=== PATIENT | female | born 1965 | race Caucasian/White ===

== ENCOUNTER → 2017-04-30 | Outpatient (CLI) | payer OTHER ==
[~2017-04-30] MED LIST: DICL75TA2 PO; EPP3/2 IM; IBUP-1050 PO
--- NOTE | 2017-04-30 11:18 | DIAGNOSTIC IMAGING REPORT ---
LEFT HAND MIN 3 VIEWS ROUTINE CLINICAL HISTORY: LEFT HAND PAIN COMPARISON: None. DISCUSSION: Minimal subchondral degenerative cystic change of the carpal bones. All remaining osseous structures are unremarkable. No abnormal periosteal reaction. IMPRESSION: Minimal degenerative cystic change of the carpal bones. Otherwise negative study. Electronically signed by: Gen Redmond M.D. 04/30/2017 11:17 AM Dictated Date/Time: 04/30/2017 11:16 AM
== END | disposition home or self-care (01) ==
LOC: C.RAD1850 11:00
PROVIDERS: ATTEND Emergency Medicine
DX: S60.222A Contusion of left hand, initial encounter (principal); X58.XXXA Exposure to other specified factors, initial encounter

== ENCOUNTER 2017-06-16 11:06 | Emergency (ER) | payer OTHER ==
[~2017-06-16] VITALS: Ht 154.9 cm; Wt 64.6 kg
[~2017-06-16 11:06] MED LIST changes: -DICL75TA2 PO
[2017-06-16 11:09] VITALS: TEMP 36.8; Ht 154.9 cm; Wt 64.6 kg
--- NOTE | 2017-06-16 11:46 | DIAGNOSTIC IMAGING REPORT ---
RIGHT HAND 3 VIEWS HISTORY: right hand pain Right COMPARISON: None. FINDINGS: There is no fracture or dislocation. Soft tissues are unremarkable. No radiopaque foreign bodies. Mild to moderate cartilage space narrowing and marginal osteophytes throughout the majority of the DIP and PIP joints of the hand. There is also mild cartilage space narrowing at the third MCP joint. This is consistent with degenerative change. IMPRESSION: No fractures within the right hand. Mild to moderate osteoarthritis. Electronically signed by: Clinton Arredondo M.D. 06/16/2017 11:45 AM Dictated Date/Time: 06/16/2017 11:43 AM
--- NOTE | 2017-06-16 11:57 | EMERGENCY ROOM VISIT NOTE ---
ED Visit Note First contact with patient: 11:21 CHIEF COMPLAINT: Right wrist and hand pain. HISTORY OF PRESENT ILLNESS: This 51-year-old female presents to the ER with chief complaint of right hand and wrist pain. 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 She states normally they just have to lift the dishes onto a belt and then they will go through but she now has to push them into the washer and she uses her right hand. The patient admits to some intermittent numbness and tingling in her hand. She also admits to some increased pain in her right fourth digit. The patient does admit to having carpal tunnel surgery on that hand in the past. REVIEW OF SYSTEMS: 6 system review was performed and was negative unless stated otherwise in history of present illness. PMH: The patient is healthy; carpal tunnel surgery, 2 C-sections SOCIAL HISTORY: Patient lives with her son. The patient admits to tobacco use and occasional alcohol use. PHYSICAL EXAM: Vital Signs: Were reviewed Reviewed Nurse's notes. GENERAL: 51- year-old white female appears in no acute distress. MENTAL Status: Alert and oriented 3. RIGHT HAND/WRIST: No gross bony deformity noted. There is some swelling noted over the dorsal aspect of the hand and wrist. Positive Phalen's , positive Tinel's. The patient also has point tenderness over the proximal phalanx of the fourth digit. EMERGENCY DEPARTMENT COURSE: The patient was evaluated. X-ray of the right hand was ordered and interpreted by the radiologist and myself. DIAGNOSTICS:RIGHT HAND 3 VIEWS HISTORY: right hand pain Right COMPARISON: None. FINDINGS: There is no fracture or dislocation. Soft tissues are unremarkable. No radiopaque foreign bodies. Mild to moderate cartilage space narrowing and marginal osteophytes throughout the majority of the DIP and PIP joints of the hand. There is also mild cartilage space narrowing at the third MCP joint. This is consistent with degenerative change. IMPRESSION: No fractures within the right hand. Mild to moderate osteoarthritis. Electronically signed by: Clinton Arredondo M.D. 06/16/2017 11:45 AM The patient was informed of the findings. The patient is placed in a wrist splint. The patient was discharged home in stable condition. DIAGNOSIS: Osteoarthritis of the right hand Carpal tunnel syndrome right wrist DISCHARGE INSTRUCTIONS AND TREATMENT: Wrist splint for 4 - 5 days. Ice to the swollen area frequently over the next 2 days. Take Voltaren as prescribed. Do not take any additional ibuprofen. If symptoms are not improving, recommend follow-up with orthopedics. Current/Historical Medications Scheduled Epinephrine (Epipen), 0.3 MG IM UD Allergies Coded Allergies: BEE STING (Unverified Allergy, Mild, 06/16/17) Acetaminophen (Verified Allergy, Unknown, vomiting, 06/16/17) Vital Signs Date Time Temp Pulse Resp B/P (MAP) Pulse Ox O2 Delivery O2 Flow Rate FiO2 06/16/17 11:09 36.8 87 20 145/85 97 Room Air Departure Information Referrals Eliane Bryant M.D. (MEDICAL) (PCP) Patient Instructions My [facility]
[2017-06-16] MEDS ORDERED: DICL75TA2 PO (11:59)
[2017-06-16 12:14] VITALS: BP 145/85; PULSE 85; O2SAT 100
== END 2017-06-16 12:15 | disposition home or self-care (01) ==
LOC: C.EDB 11:07 → C.EDD 12:15
DX: M79.641 Pain in right hand (principal); M25.531 Pain in right wrist; M79.89 Other specified soft tissue disorders; M19.041 Primary osteoarthritis, right hand; F17.210 Nicotine dependence, cigarettes, uncomplicated

== ENCOUNTER 2021-07-03 11:42 | Inpatient (IN) ==
[2021-07-03] MEDS ORDERED: oxyCODONE HCL IR 5 MG TAB (IMMEDIATE RELEASE) PO STA (13:03)
--- NOTE | 2021-07-03 13:31 | XRay Report ---
XR shoulder RT min 2V routine CLINICAL HISTORY: Right shoulder pain. COMPARISON: Right shoulder radiograph February 28, 2019. FINDINGS: Alignment of the right shoulder is anatomic. No acute fracture is identified. There is mil d joint space narrowing of the right acromioclavicular joint. Note is made of interstitial thickening throughout the right lung with right midlung opacity. There is also right suprahilar opacity, includ ing an irregular 2.1 cm nodular opacity. IMPRESSION: 1. Asymmetric right lung interstitial thickening with right midlung and suprahilar opacity, including an irregular 2.1 cm suprahilar density. These findings may reflect pneumonia however a chest CT with contrast is recommended to exclude the possibility of a neoplastic process. 2. No acute fracture or dislocation within the right shoulder. Mild acromioclavicular joint osteoarth ritis. ACT 112: Positive. There are findings on this exam that require communication between the performing entity and the patient following Patient Test Result Information Act ([place] Act 112) guidelines. Electronically signed by: Kerwin David M.D. 07/03/2021 1:29 PM
[2021-07-03] MEDS ORDERED: ALBUT/IPRATROP 3MG/0.5MG NEB 3 ML VIAL NEB STA (13:55)
[2021-07-03 14:21] LABS: Basophils # (auto) 0.03 K/uL (0-0.2); Basophils % (auto) 0.2 %; Eosinophils # (auto) 0.34 K/uL (0-0.5); Eosinophils % (auto) 2.8 %; Hematocrit (blood only) 42.3 % (37-47); Hemoglobin 13.9 g/dL (12.0-16.0); Immature Granulocytes # (auto) 0.02 K/uL (0.00-0.02); Immature Granulocytes % (auto) 0.2 %; Lymphocytes # (auto) 1.53 K/uL (1.2-3.4); Lymphocytes % (auto) 12.6 %; Mean Corpuscular Hgb Conc 32.9 g/dL (32-36); Mean Corpuscular Volume 97.5 fL (80-100); Mean Platelet Volume 10.6 fL (7.4-10.4); Monocytes # (auto) 0.99 K/uL (0.11-0.59); Monocytes % (auto) 8.2 %; Platelet Count 309 K/uL (130-400); RDW Coefficient of Variation 13.9 % (11.5-14.5); RDW Standard Deviation 50.1 fL (36.4-46.3); Red Blood Count 4.34 M/uL (4.2-5.4); White Blood Count 12.11 K/uL (4.8-10.8)
[2021-07-03 14:31] LABS: Partial Thromboplastin Ratio 0.9; Partial Thromboplastin Time 24.2 Seconds (21.0-31.0); Prothrombin Time 10.2 Seconds (9.0-12.0)
[2021-07-03 14:37] LABS: Alanine Aminotransferase 37 U/L (12-78); Albumin Level 3.9 gm/dl (3.4-5.0); Aspartate Aminotransferase 18 U/L (15-37); BUN Creatinine Ratio 9.3 (10-20); Blood Urea Nitrogen 9 mg/dl (7-18); Calcium 9.3 mg/dl (8.5-10.1); Carbon Dioxide 27 mmol/L (21-32); Chloride 107 mmol/L (98-107); Creatinine Clr Calc Pharmacy 57.8 ml/min; Est GFR (African American) 80.1 ml/min; Est GFR (Non-African American) 69.1 ml/min; Glucose 176 mg/dl (70-99); Magnesium 2.2 mg/dl (1.8-2.4); Potassium 3.8 mmol/L (3.5-5.1); Sodium 142 mmol/L (136-145)
[2021-07-03 14:43] LABS: Albumin Globulin Ratio 1.1 (0.9-2); Alkaline Phosphatase 95 U/L (45-117); Bilirubin,Total 0.5 mg/dl (0.2-1); Globulin 3.7 gm/dl (2.5-4.0); Total Protein 7.6 gm/dl (6.4-8.2); Troponin I < 0.015 ng/ml (0-0.045)
[2021-07-03] MEDS ORDERED: OPTIRAY 320 125ml IV ONE (15:17)
--- NOTE | 2021-07-03 15:39 | CT Scan Report ---
CT shoulder RT wo con HISTORY: 55 years-old Female Pt rt shoulder pain acute right shoulder pain COMPARISON: CTA chest of same day TECHNIQUE: Multiple axial CT images of the right shoulder were obtained without the use of IV contras t A dose lowering technique was used consistent with the principals of LINNETTE. FINDINGS: Right hilar/paramediastinal mass with 3.2 cm right upper lobe cavitary lesion. Groundglass and consol idative opacities of the right upper lung with scattered solid pulmonary nodules. A right apical pulm onary lesion is also present. Emphysema. Pathologic right supraclavicular adenopathy. Mild glenohumeral and AC joint osteoarthritis. No acute fracture, dislocation, intra-articular loose body, osseous erosion or suspicious bone lesion. Tendons and ligaments are not well evaluated by CT t echnique. No appreciable rotator cuff muscular atrophy. IMPRESSION: 1. Mild osteoarthritis of the right shoulder without acute fracture, dislocation or suspicious bone l esion. 2. Right hilar/paramediastinal mass with cavitary right upper lobe lesions are further described on C TA chest of same day. Groundglass and consolidative opacities of the right upper lobe are suggestive of postobstructive pneumonitis. 3. Pulmonary nodules and right supraclavicular adenopathy suggestive of metastatic disease. ACT 112: Negative or not required by law. The above report was generated using voice recognition software. It may contain grammatical, syntax o r spelling errors. Electronically signed by: Fidencio Ross M.D. 07/03/2021 3:37 PM
[2021-07-03] MEDS ORDERED: dexAMETHasone**PF** 10 MG/ML VIAL IV ONE (15:43)
--- NOTE | 2021-07-03 15:44 | CT Scan Report ---
HEAD CT NONCONTRAST CT DOSE: HISTORY: Stroke Like Symptoms TECHNIQUE: Multiaxial CT images of the head were performed without the use of intravenous contrast. A utomated exposure control was utilized for this study. A dose lowering technique was utilized adheri ng to the principles of ALARA. Comparison: None. Findings: The paranasal sinuses and mastoid air cells are clear. The calvarium and skull base are int act. There are 3 focal areas of vasogenic edema seen within the high convexities and left frontal lob e. The dominant focus of mesenteric edema within the left high convexity contains a 1.3 cm lesion. Th erefore, the other areas of the vasogenic edema also likely contains small lesions. These findings ar e highly suspicious for metastatic disease. No significant midline shift or mass effect at this time. No intracranial hemorrhage or acute infarct. Impression: There are 3 separate areas of vasogenic edema within the brain with the largest in the left high conv exity containing a 1.3 cm lesion. Therefore, the other areas of vasogenic edema also likely contain o ccult lesions. These findings are highly suspicious for metastatic disease. ACT 112: Negative or not required by law. Electronically signed by: Clinton Arredondo M.D. 07/03/2021 3:42 PM
--- NOTE | 2021-07-03 15:52 | CT Scan Report ---
CT ANGIOGRAPHY OF THE CHEST, PULMONARY EMBOLUS PROTOCOL CLINICAL HISTORY: Shortness of breath. COMPARISON STUDY: No previous studies for comparison. TECHNIQUE: Following IV administration of 119 mL of Optiray, helical axial images of the chest were o btained utilizing the pulmonary embolus protocol. Maximal intensity projections and sagittal and cor onal reformats were viewed on an independent 3D workstation. IV contrast was administered without co mplication. Automated exposure control was utilized for the study. A dose lowering technique was ut ilized adhering to the principles of ALARA. FINDINGS: No pulmonary emboli are identified. However, the right upper lobe pulmonary artery is occl uded by extensive adenopathy. Adenopathy also results in narrowing of the left brachiocephalic vein a nd superior vena cava. The right brachiocephalic vein is suboptimally assessed on this exam but likel y occluded. Note is made of a necrotic precarinal lymph node that measures 2.7 cm in short axis diame ter. Multiple additional pathologic upper mediastinal, bilateral supraclavicular and lower cervical l ymphadenopathy is present. Index right hilar lymph node measures 3.3 x 2.8 cm. There is occlusion of the right upper lobe bronchus by a 2.8 cm right suprahilar mass or lymph node. Note is also made of a 3 cm irregular thick-walled cavitary right upper lobe mass on image 219. A 2.6 cm irregular right ap ical nodule is present. Moderate right upper lobe airspace opacity reflects post obstructive pneumoni tis. There is mild right middle lobe opacity. Numerous additional smaller pulmonary nodules throughou t the lungs are present. Size of the heart is normal. There is trace pericardial effusion. There is n o pneumothorax. A trace right pleural effusion is noted. No acute fracture or suspicious lesion is id entified within visualized skeletal structures. Numerous hepatic lesions are noted. These measure up to 2.[address] of the right shoulder will be reported separately. IMPRESSION: 1. No pulmonary emboli identified although right upper lobe pulmonary artery occluded by adenopathy. 2. Occlusion of the right upper lobe bronchus by the right upper lobe mass or pathologic lymph node. Extensive right hilar, mediastinal, bilateral supraclavicular and lower cervical lymphadenopathy. Thi s is consistent with a neoplastic process and favors bronchogenic carcinoma. Postobstructive right up per lobe pneumonia. Pulmonary consultation is recommended. 3. Numerous pulmonary and hepatic metastases. 4. Vascular narrowing and occlusion by mediastinal lymphadenopathy, as described above. ACT 112: Negative or not required by law. Electronically signed by: Kerwin David M.D. 07/03/2021 3:51 PM
--- NOTE | 2021-07-03 16:37 | Emergency Department Note ---
Impression & Plan Lung mass, Metastatic disease, Right shoulder pain, Brain metastases, Vasogenic edema, Elevated BP without diagnosis of hypertension ED Provider Note NAME: JOSE PRATT AGE: 55 SEX: F : 1965 ARRIVES VIA: Walk-In INFORMANT: Patient, ED PROVIDER(S): Danish Smyth MD CHIEF COMPLAINT: Shoulder weakness HPI: This 55-year-old female who presents emergency department complaining of shoulder weakness. The patient reports she injured her shoulder approximately 2 years ago. She saw physical therapy for the shoulder. She reports over the weekend using the shoulder more often while lifting and feels she overdid it. She is complaining of pain and numbness and weakness running from the shoulder down to her hand. She reports she cannot hold anything in her hand for longer than a minute. She reports she has not taken anything for the weakness. She reports nothing appears to make the weakness any better or worse. ROS: See above HPI for pertinent positives & negatives. A total of 10 systems reviewed and were otherwise negative. PAST MEDICAL HISTORY: See Below PAST SURGICAL HISTORY: See Below FAMILY HISTORY: See Below SOCIAL HISTORY: See Below HOME MEDICATIONS: See Below ALLERGIES: See Below VITALS: See Below PHYSICAL EXAMINATION: VITAL SIGNS - Vital signs and nursing notes were reviewed. GENERAL - 55-year-old female appearing stated age who is in no acute distress. Communicates well with provider and answers questions appropriately. SKIN - Without rashes. HEAD - NC/AT. EYES - PERRL with EOMI bilaterally. Sclera anicteric. Palpebral conjunctiva pink and moist with no injection noted. EARS - No deformities of external structures noted on gross examination bilaterally. NOSE - Midline and without cyanosis. No epistaxis or purulent drainage noted. Septum midline without deviation or septal hematoma noted. MOUTH/OROPHARYNX - Without perioral cyanosis. Buccal mucosa pink and moist and without leukoplakia. Tongue midline with equal elevation of palate bilaterally. No tonsillar hypertrophy, erythema, or exudates noted. NECK - Neck with FROM. Supple to palpation. LUNGS - Chest wall symmetric without accessory muscle use, intercostals retrac tions, or central cyanosis. Normal vesicular breath sounds CTA B/L. No wheezes, rales, or rhonchi appreciated. CARDIAC - RRR with S1/S2. No murmur, rubs, or gallops appreciated. ABDOMEN - Abdominal contour without pulsations or visible masses. BS normoactive all four quadrants. No tenderness, palpable masses, hepatosplenomegaly, or ascites noted. EXTREMITIES - No clubbing or peripheral cyanosis. No pretibial edema present. +3/5 strength in Rt hand, Rt shoulder NEUROLOGIC - Cranial nerves II through XII grossly intact. Sensory intact to light touch throughout. Patellar reflexes +2/4. PSYCH - A&Ox3 and cooperates fully with examiner. Pt is very pleasant and interacts well with examiner. MEDICAL DECISION MAKING: Patient was seen and evaluated as above in room C8. Review was performed of nursing notes and vital signs. I did review pertinent previous visits and patient history. After obtaining a thorough history and physical examination the above work up was performed. This 55-year-old female who presents emergency department complaining of right arm weakness. Patient's x-rays were interpreted by me and are concerning for a lung mass. Based on this and using shared medical decision making with the patient the decision was made to send the patient for CAT scan of the head and chest. CAT scan of the head was interpreted by me is concerning for what appears to be a metastatic disease. CAT scan of the chest is concerning for a tumor. There also appear to be mets to the liver. Patient is also hypertensive here in the emergency department. She was given Decadron here. I did discuss the case with the hospitalist service here as well as neurology. They would both like the patient transferred to [place] however [place] is on a 24 to 48- hour wait for beds. I did discuss the case with the triage physician in [place] Dr. Harper. He is recommending that we admit the patient here while they work on obtaining a bed for the patient. An order was placed for continuous cardiac monitoring. The monitor shows a rate of 90 with Normal Sinus rhythm. The patient was evaluated during a period of high volume and high acuity during the global COVID-19 pandemic, and that diagnosis was suspected/considered upon their initial presentation. Their evaluation, treatment and testing was consistent with current guidelines for patients who present with complaints or symptoms that may be related to COVID-19. Patient was seen while provider was wearing PPE. Triage Nursing notes reviewed. Prior medical records reviewed Vital Signs: reviewed and remarkable for no significant abnormalities Differential diagnosis: Infection, dehydration, metabolic abnormality, hypo/hyperglycemia, electrolyte disturbance, anemia, hypoxia, cardiac sources, intracerebral event, toxicologic, neurologic, as well as other pathologies. ER treatment provided: See below Laboratory studies: As stated above and show below. Imaging studies: See below Consultation(s): Internal Medicine Neurology [place] Past Med/Surg History Medical History No significant active problems Surgical History History of History of carpal tunnel surgery Family History Father Lung cancer Social History (Updated 07/03/21 @ 18:10 by ALLAN Arango) Smoking Status: Current every day smoker Tobacco Type: Cigarettes Hx Alcohol Use: Yes Alcohol Intake Frequency: 2-4 x/Month Preferred Language: Nauruan Feels Safe at Home: Yes Allergies Allergies Allergy/AdvReac Type Severity Reaction Status Date / Time bee venom protein (honey bee) Allergy Severe Anaphylaxis Unverified 07/03/21 13:29 acetaminophen Allergy Unknown vomiting Verified 07/03/21 13:29 Home Meds Home Medications Medication Instructions Recorded Confirmed epinephrine 0.3 mg/0.3 mL 0.3 mg IM Q4H #0 12/01/15 07/03/21 injection, auto-injector ibuprofen 200 mg tablet 400 mg PO Q6H PRN 07/03/21 07/03/21 Results & Data (ED) Vital Signs Vital Signs - 24 hr 07/03/21 11:44 07/03/21 14:41 07/03/21 16:52 Temperature 36.7 C Temperature Source Temporal Artery Scan Pulse Rate 106 H 90 Pulse Rate [Left Finger] 91 H Respiratory Rate 16 18 15 Respiratory Effort / Characteristics Non-Labored Spontaneous Blood Pressure 183/89 H 165/80 H Blood Pressure Mean 120 108 Pulse Oximetry 97 96 Oxygen Delivery Method Room Air Room Air Sepsis Recent Fever Within 48 Hours No Sepsis New/Unexplained Change in Mental Status N/A Sepsis Action Taken by Nursing No Action Required Home Medications Current Medication List: was personally reviewed by me Laboratory Data Attestation: I reviewed the patient's lab results. Result diagrams: 07/03/21 14:01 07/03/21 14:01 Lab Results 07/03/21 07/03/21 07/03/21 Range/Units 14:01 14:01 14:01 WBC 12.11 H (4.8-10.8) K/uL RBC 4.34 (4.2-5.4) M/uL Hgb 13.9 (12.0-16.0) g/dL Hct 42.3 (37-47) % MCV 97.5 (80-100) fL MCH 32.0 (25-34) pg MCHC 32.9 (32-36) g/dL RDW Std Deviation 50.1 H (36.4-46.3) fL RDW Coeff of Jasson 13.9 (11.5-14.5) % Plt Count 309 (130-400) K/uL MPV 10.6 H (7.4-10.4) fL Immature Gran % (Auto) 0.2 % Neut % (Auto) 76.0 % Lymph % (Auto) 12.6 % [place] % (Auto) 8.2 % Eos % (Auto) 2.8 % Baso % (Auto) 0.2 % Neut # (Auto) 9.20 H (1.4-6.5) K/uL Lymph # (Auto) 1.53 (1.2-3.4) K/uL [place] # (Auto) 0.99 H (0.11-0.59) K/uL Eos # (Auto) 0.34 (0-0.5) K/uL Baso # (Auto) 0.03 (0-0.2) K/uL Immature Gran # (Auto) 0.02 (0.00-0.02) K/uL PT 10.2 (9.0-12.0) Seconds INR 1.0 (0.9-1.1) APTT 24.2 (21.0-31.0) Seconds PTT Ratio 0.9 Sodium 142 (136-145) mmol/L Potassium 3.8 (3.5-5.1) mmol/L Chloride 107 (98-107) mmol/L Carbon Dioxide 27 (21-32) mmol/L Anion Gap 8.0 (3-11) BUN 9 (7-18) mg/dl Creatinine 0.92 (0.6-1.2) mg/dl Est Cr Clr Drug Dosing 57.8 ml/min Est GFR ( Amer) 80.1 ml/min Est GFR (Non-Af Amer) 69.1 ml/min BUN/Creatinine Ratio 9.3 L (10-20) Glucose 176 H (70-99) mg/dl Calcium 9.3 (8.5-10.1) mg/dl Magnesium 2.2 (1.8-2.4) mg/dl Total Bilirubin 0.5 (0.2-1) mg/dl AST 18 (15-37) U/L ALT 37 (12-78) U/L Alkaline Phosphatase 95 (45-117) U/L Troponin I < 0.015 (0-0.045) ng/ml Total Protein 7.6 (6.4-8.2) gm/dl Albumin 3.9 (3.4-5.0) gm/dl Globulin 3.7 (2.5-4.0) gm/dl Albumin/Globulin Ratio 1.1 (0.9-2) Specimen Hemolysis COVID-19 Eval Order SARS-CoV-2 (PCR) (Negative) 07/03/21 07/03/21 Range/Units 16:56 16:56 WBC (4.8-10.8) K/uL RBC (4.2-5.4) M/uL Hgb (12.0-16.0) g/dL Hct (37-47) % MCV (80-100) fL MCH (25-34) pg MCHC (32-36) g/dL RDW Std Deviation (36.4-46.3) fL RDW Coeff of Jasson (11.5-14.5) % Plt Count (130-400) K/uL MPV (7.4-10.4) fL Immature Gran % (Auto) % Neut % (Auto) % Lymph % (Auto) % [place] % (Auto) % Eos % (Auto) % Baso % (Auto) % Neut # (Auto) (1.4-6.5) K/uL Lymph # (Auto) (1.2-3.4) K/uL [place] # (Auto) (0.11-0.59) K/uL Eos # (Auto) (0-0.5) K/uL Baso # (Auto) (0-0.2) K/uL Immature Gran # (Auto) (0.00-0.02) K/uL PT (9.0-12.0) Seconds INR (0.9-1.1) APTT (21.0-31.0) Seconds PTT Ratio Sodium (136-145) mmol/L Potassium (3.5-5.1) mmol/L Chloride (98-107) mmol/L Carbon Dioxide (21-32) mmol/L Anion Gap (3-11) BUN (7-18) mg/dl Creatinine (0.6-1.2) mg/dl Est Cr Clr Drug Dosing ml/min Est GFR ( Amer) ml/min Est GFR (Non-Af Amer) ml/min BUN/Creatinine Ratio (10-20) Glucose (70-99) mg/dl Calcium (8.5-10.1) mg/dl Magnesium (1.8-2.4) mg/dl Total Bilirubin (0.2-1) mg/dl AST (15-37) U/L ALT (12-78) U/L Alkaline Phosphatase (45-117) U/L Troponin I (0-0.045) ng/ml Total Protein (6.4-8.2) gm/dl Albumin (3.4-5.0) gm/dl Globulin (2.5-4.0) gm/dl Albumin/Globulin Ratio (0.9-2) Specimen Hemolysis COVID-19 Eval Order Covid19 at [facility] SARS-CoV-2 (PCR) NEGATIVE (Negative) Administered Medications Discontinued Medications Albuterol (Albut/Ipratrop 3mg/0.5mg Neb 3 Ml Vial) 3 ml NEB NOW STA Stop: 07/03/21 13:56 Last Admin: 07/03/21 14:41 Dose: 3 ml Documented by: [id number] Dexamethasone Sodium Phosphate (DexamethasonePf 10 Mg/Ml Vial) 10 mg IV NOW ONE Stop: 07/03/21 15:44 Last Admin: 07/03/21 16:41 Dose: 10 mg Documented by: [id number] Ioversol (Optiray 320 125ml) 119 ml IV ONCE ONE Stop: 07/03/21 15:18 Last Admin: 07/03/21 15:17 Dose: 1 ml Documented by: [id number] Oxycodone HCl (Oxycodone Hcl Ir 5 Mg Tab (Immediate Release)) 10 mg PO NOW STA Stop: 07/03/21 13:04 Last Admin: 07/03/21 13:41 Dose: 10 mg Documented by: [id number] Imaging Data Radiologist's Impression: Shoulder X-Ray 07/03/21 13:03 XR shoulder RT min 2V routine CLINICAL HISTORY: Right shoulder pain. COMPARISON: Right shoulder radiograph February 28, 2019. FINDINGS: Alignment of the right shoulder is anatomic. No acute fracture is identified. There is mild joint space narrowing of the right acromioclavicular joint. Note is made of interstitial thickening throughout the right lung with right midlung opacity. There is also right suprahilar opacity, including an irregular 2.1 cm nodular opacity. IMPRESSION: 1. Asymmetric right lung interstitial thickening with right midlung and suprahilar opacity, including an irregular 2.1 cm suprahilar density. These findings may reflect pneumonia however a chest CT with contrast is recommended to exclude the possibility of a neoplastic process. 2. No acute fracture or dislocation within the right shoulder. Mild acromioclavicular joint osteoarthritis. ACT 112: Positive. There are findings on this exam that require communication between the performing entity and the patient following Patient Test Result Information Act ([place] Act 112) guidelines. Electronically signed by: Kerwin David M.D. 07/03/2021 1:29 PM Chest CTA 07/03/21 13:55 CT ANGIOGRAPHY OF THE CHEST, PULMONARY EMBOLUS PROTOCOL CLINICAL HISTORY: Shortness of breath. COMPARISON STUDY: No previous studies for comparison. TECHNIQUE: Following IV administration of 119 mL of Optiray, helical axial images of the chest were obtained utilizing the pulmonary embolus protocol. Maximal intensity projections and sagittal and coronal reformats were viewed on an independent 3D workstation. IV contrast was administered without complication. Automated exposure control was utilized for the study. A dose lowering technique was utilized adhering to the principles of ALARA. FINDINGS: No pulmonary emboli are identified. However, the right upper lobe pulmonary artery is occluded by extensive adenopathy. Adenopathy also results in narrowing of the left brachiocephalic vein and superior vena cava. The right brachiocephalic vein is suboptimally assessed on this exam but likely occluded. Note is made of a necrotic precarinal lymph node that measures 2.7 cm in short axis diameter. Multiple additional pathologic upper mediastinal, bilateral supraclavicular and lower cervical lymphadenopathy is present. Index right hilar lymph node measures 3.3 x 2.8 cm. There is occlusion of the right upper lobe bronchus by a 2.8 cm right suprahilar mass or lymph node. Note is also made of a 3 cm irregular thick-walled cavitary right upper lobe mass on image 219. A 2.6 cm irregular right apical nodule is present. Moderate right upper lobe airspace opacity reflects post obstructive pneumonitis. There is mild right middle lobe opacity. Numerous additional smaller pulmonary nodules throughout the lungs are present. Size of the heart is normal. There is trace pericardial effusion. There is no pneumothorax. A trace right pleural effusion is noted. No acute fracture or suspicious lesion is identified within visualized skeletal structures. Numerous hepatic lesions are noted. These measure up to 2.[address] of the right shoulder will be reported separately. IMPRESSION: 1. No pulmonary emboli identified although right upper lobe pulmonary artery occluded by adenopathy. 2. Occlusion of the right upper lobe bronchus by the right upper lobe mass or pathologic lymph node. Extensive right hilar, mediastinal, bilateral supraclavicular and lower cervical lymphadenopathy. This is consistent with a neoplastic process and favors bronchogenic carcinoma. Postobstructive right upp er lobe pneumonia. Pulmonary consultation is recommended. 3. Numerous pulmonary and hepatic metastases. 4. Vascular narrowing and occlusion by mediastinal lymphadenopathy, as described above. ACT 112: Negative or not required by law. Electronically signed by: Kerwin David M.D. 07/03/2021 3:[address] 07/03/21 13:[address] DOSE: HISTORY: Stroke Like Symptoms TECHNIQUE: Multiaxial CT images of the head were performed without the use of intravenous contrast. Automated exposure control was utilized for this study. A dose lowering technique was utilized adhering to the principles of ALARA. Comparison: None. Findings: The paranasal sinuses and mastoid air cells are clear. The calvarium and skull base are intact. There are 3 focal areas of vasogenic edema seen within the high convexities and left frontal lobe. The dominant focus of mesenteric edema within the left high convexity contains a 1.3 cm lesion. Therefore, the other areas of the vasogenic edema also likely contains small lesions. These findings are highly suspicious for metastatic disease. No significant midline shift or mass effect at this time. No intracranial hemorrhage or acute infarct. Impression: There are 3 separate areas of vasogenic edema within the brain with the largest in the left high convexity containing a 1.3 cm lesion. Therefore, the other areas of vasogenic edema also likely contain occult lesions. These findings are highly suspicious for metastatic disease. ACT 112: Negative or not required by law. Electronically signed by: Clinton Arredondo M.D. 07/03/2021 3:[address] 07/03/21 13:55 CT shoulder RT wo con HISTORY: 55 years-old Female Pt rt shoulder pain acute right shoulder pain COMPARISON: CTA chest of same day TECHNIQUE: Multiple axial CT images of the right shoulder were obtained without the use of IV contrast A dose lowering technique was used consistent with the principals of LINNETTE. FINDINGS: Right hilar/paramediastinal mass with 3.2 cm right upper lobe cavitary lesion. Groundglass and consolidative opacities of the right upper lung with scattered solid pulmonary nodules. A right apical pulmonary lesion is also present. Emphysema. Pathologic right supraclavicular adenopathy. Mild glenohumeral and AC joint osteoarthritis. No acute fracture, dislocation, intra-articular loose body, osseous erosion or suspicious bone lesion. Tendons and ligaments are not well evaluated by CT technique. No appreciable rotator cuff muscular atrophy. IMPRESSION: 1. Mild osteoarthritis of the right shoulder without acute fracture, dislocation or suspicious bone lesion. 2. Right hilar/paramediastinal mass with cavitary right upper lobe lesions are further described on CTA chest of same day. Groundglass and consolidative opacities of the right upper lobe are suggestive of postobstructive pneumonitis. 3. Pulmonary nodules and right supraclavicular adenopathy suggestive of metastatic disease. ACT 112: Negative or not required by law. The above report was generated using voice recognition software. It may contain grammatical, syntax or spelling errors. Electronically signed by: Fidencio Ross M.D. 07/03/2021 3:37 PM Discharge Plan Visit Data Chief Complaint: Shoulder Pain Stated Complaint: SHOULDER PAIN ED Provider: Danish Smyth Discharge Problem: Lung mass, Metastatic disease, Right shoulder pain, Brain metastases, Vasogenic edema, Elevated BP without diagnosis of hypertension Patient Disposition: Admitted As Inpatient Discharge Instructions Interventions: ED Discharge Assessment Last Done: 07/03/21 19:39 Discharge Problem: Metastatic disease Qualifiers: Area of secondary neoplastic involvement: unspecified site Qualified Code(s): C79.9 - Secondary malignant neoplasm of unspecified site Right shoulder pain Qualifiers: Chronicity: acute Qualified Code(s): M25.511 - Pain in right shoulder
[2021-07-03] MEDS ORDERED: METOPROLOL TARTRATE 1 MG/ML VIAL IV PRN (16:42)
--- NOTE | 2021-07-03 18:13 | History & Physical Report ---
Date of Service July 03, 2021 Assessment & Plan (1) Lung mass: (2) Metastatic disease: (3) Brain metastases: (4) Vasogenic edema: Plan: -Admit to telemetry -Patient presenting from home with reports of right shoulder pain -On right shoulder imaging, found to have right lung mass with numerous pulmonary and hepatic metastases -Head CT shows 3 separate areas of vasogenic edema within the brain with the largest in the left high convexity containing a 1.3 cm lesion highly suspicious for metastatic disease -No seizure-like activity or neurological focal deficit noted -Accepted to [facility] however no bed available -S/p Decadron 10 mg IV in the ED -Discussed with Dr. Daniel Stuart (neuro hospitalist at [facility] [place]) - recommends Decadron 4 mg IV q6h -Brain MRI, neurochecks, seizure precautions (5) Right shoulder pain: Plan: -No acute fractures or abnormalities noted on shoulder x-ray or CT -may need MRI and ortho eval however above findings are priority (6) Elevated BP without diagnosis of hypertension: Plan: -Elevated BP noted -May be situational/due to pain/anxiety -Monitor BP, provide antihypertensive if persistently elevated (7) DVT prophylaxis: Plan: -SCDs due to brain metastases History of Present Illness Chief Complaint: Right shoulder pain Primary Care Provider: NO PCP 55-year-old female with PMH tobacco abuse and other problems listed below who presents to the ED for evaluation of right shoulder pain. Patient reports her shoulder pain began about 1 week ago. Reports she had an injury to her right shoulder a couple of years ago and this pain felt similar. States that she was moving some heavy furniture at work and felt as though she may have reinjured her shoulder. Pain is located posteriorly. Patient is a lifelong smoker and notes a worsening cough over the past couple of weeks. Denies sputum production or hemoptysis. Reports she otherwise has been feeling well recently. No other recent illnesses, fevers, chills. She denies chest pain shortness of breath. No lightheadedness, dizziness, diaphoresis, syncopal events. Denies unilateral weakness, numbness, tingling. No difficulty speaking or understanding or facial droop. Denies any unintentional weight loss. No abdominal pain, nausea, vomiting, diarrhea. Denies urinary symptoms. In the ED, imaging shows a right lung mass with hepatic and pulmonary metastases. CT head shows 3 separate areas of vasogenic edema within the brain with the largest in the left high convexity containing a 1.3 cm lesion highly suspicious for metastatic disease. Patient was accepted to [facility] however no bed is available at this time. In the ED, patient received nebulizer treatment, IV dexamethasone 10 mg, p.o. oxyc odone. Allergies Allergy/AdvReac Type Severity Reaction Status Date / Time bee venom protein (honey bee) Allergy Severe Anaphylaxis Unverified 07/03/21 13:29 acetaminophen Allergy Unknown vomiting Verified 07/03/21 13:29 Home Medications Medication Instructions Recorded Confirmed Type epinephrine 0.3 mg/0.3 mL 0.3 mg IM Q4H #0 12/01/15 07/03/21 History injection, auto-injector ibuprofen 200 mg tablet 400 mg PO Q6H PRN 07/03/21 07/03/21 History Past Med/Surg History Medical History No significant active problems Surgical History History of History of carpal tunnel surgery Family History Father Lung cancer Social History (Updated 07/03/21 @ 18:10 by ALLAN Arango) Smoking Status: Current every day smoker Tobacco Type: Cigarettes Cigarettes Per Day: 10; Do You Dip or Chew Tobacco: No; Tobacco Cessation Education Requested by Patient: No Hx Alcohol Use: Yes Alcohol type: beer Alcohol Intake Frequency: 2-4 x/Month Hx Substance Use: Yes Last Used Substance: Days (ago) Preferred Language: Ukrainian 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 Beliefs That Will Affect Care: None Current Living Situation: Family Other Information That Helps Us Care for You: No Feels Safe at Home: Yes Safety Concerns: Feels Safe At This Time Assistive Devices: Denture - Upper, Denture - Lower and Glasses Review of Systems Review of Systems: ROS per HPI, all other systems reviewed and negative Physical Exam Constitutional: WD/WN, vitals as above Eyes: PERRL, conjunctivae normal, anicteric sclerae ENMT: external ear and nose normal, oropharynx normal Respiratory: normal respiratory effort, lungs clear to auscultation Cardiovascular: Rate/Rhythm: regular rate and regular rhythm Vessels: normal peripheral pulses Extremities: no edema Gastrointestinal (Abdomen): normal bowel sounds, soft, nontender, no hepatosplenomegaly Musculoskeletal: no cyanosis or clubbing, extremities motor strength 5/5 Shoulder: + shoulder abnormal to inspection (Pain to palpation over posterior aspect) Skin: no rashes, warm and dry Neurologic: PERRL, EOMI, accommodation nl, no face palsy, no dysarthria Psychiatric: A+Ox3, euthymic affect Results & Data Results & Data ([facility]) Vital Signs (Past 12 Hours) Vital Signs Temp Pulse Pulse Resp BP Pulse Ox 07/03/21 14:41 91 H 18 96 07/03/21 11:44 36.7 C 106 H 16 183/89 H 97 Laboratory Results Short CBC 07/03/21 Range/Units 14:01 WBC 12.11 H (4.8-10.8) K/uL Hgb 13.9 (12.0-16.0) g/dL Hct 42.3 (37-47) % Plt Count 309 (130-400) K/uL BMP 07/03/21 14:01 Sodium 142 Potassium 3.8 Chloride 107 Carbon Dioxide 27 BUN 9 Creatinine 0.92 Glucose 176 H Calcium 9.3 Cardiac Enzymes 07/03/21 Range/Units 14:01 Troponin I < 0.015 (0-0.045) ng/ml Liver Function 07/03/21 Range/Units 14:01 Total Bilirubin 0.5 (0.2-1) mg/dl AST 18 (15-37) U/L ALT 37 (12-78) U/L Alkaline Phosphatase 95 (45-117) U/L Albumin 3.9 (3.4-5.0) gm/dl Diagnostic Findings Shoulder X-Ray 07/03/21 13:03 XR shoulder RT min 2V routine CLINICAL HISTORY: Right shoulder pain. COMPARISON: Right shoulder radiograph February 28, 2019. FINDINGS: Alignment of the right shoulder is anatomic. No acute fracture is identified. There is mild joint space narrowing of the right acromioclavicular joint. Note is made of interstitial thickening throughout the right lung with right midlung opacity. There is also right suprahilar opacity, including an irregular 2.1 cm nodular opacity. IMPRESSION: 1. Asymmetric right lung interstitial thickening with right midlung and suprahilar opacity, including an irregular 2.1 cm suprahilar density. These findings may reflect pneumonia however a chest CT with contrast is recommended to exclude the possibility of a neoplastic process. 2. No acute fracture or dislocation within the right shoulder. Mild acromioclavicular joint osteoarthritis. ACT 112: Positive. There are findings on this exam that require communication between the performing entity and the patient following Patient Test Result Information Act ([place] Act 112) guidelines. Electronically signed by: Kerwin David M.D. 07/03/2021 1:29 PM Chest CTA 07/03/21 13:55 CT ANGIOGRAPHY OF THE CHEST, PULMONARY EMBOLUS PROTOCOL CLINICAL HISTORY: Shortness of breath. COMPARISON STUDY: No previous studies for comparison. TECHNIQUE: Following IV administration of 119 mL of Optiray, helical axial images of the chest were obtained utilizing the pulmonary embolus protocol. Maximal intensity projections and sagittal and coronal reformats were viewed on an independent 3D workstation. IV contrast was administered without complication. Automated exposure control was utilized for the study. A dose lowering technique was utilized adhering to the principles of ALARA. FINDINGS: No pulmonary emboli are identified. However, the right upper lobe pulmonary artery is occluded by extensive adenopathy. Adenopathy also results in narrowing of the left brachiocephalic vein and superior vena cava. The right brachiocephalic vein is suboptimally assessed on this exam but likely occluded. Note is made of a necrotic precarinal lymph node that measures 2.7 cm in short axis diameter. Multiple additional pathologic upper mediastinal, bilateral supraclavicular and lower cervical lymphadenopathy is present. Index right hilar lymph node measures 3.3 x 2.8 cm. There is occlusion of the right upper lobe bronchus by a 2.8 cm right suprahilar mass or lymph node. Note is also made of a 3 cm irregular thick-walled cavitary right upper lobe mass on image 219. A 2.6 cm irregular right apical nodule is present. Moderate right upper lobe airspace opacity reflects post obstructive pneumonitis. There is mild right middle lobe opacity. Numerous additional smaller pulmonary nodules throughout the lungs are present. Size of the heart is normal. There is trace pericardial effusion. There is no pneumothorax. A trace right pleural effusion is noted. No acute fracture or suspicious lesion is identified within visualized skeletal structures. Numerous hepatic lesions are noted. These measure up to 2.[address] of the right shoulder will be reported separately. IMPRESSION: 1. No pulmonary emboli identified although right upper lobe pulmonary artery occluded by adenopathy. 2. Occlusion of the right upper lobe bronchus by the right upper lobe mass or pathologic lymph node. Extensive right hilar, mediastinal, bilateral supraclavicular and lower cervical lymphadenopathy. This is consistent with a neoplastic process and favors bronchogenic carcinoma. Postobstructive right upper lobe pneumonia. Pulmonary consultation is recommended. 3. Numerous pulmonary and hepatic metastases. 4. Vascular narrowing and occlusion by mediastinal lymphadenopathy, as described above. ACT 112: Negative or not required by law. Electronically signed by: Kerwin David M.D. 07/03/2021 3:[address] 07/03/21 13:[address] DOSE: HISTORY: Stroke Like Symptoms TECHNIQUE: Multiaxial CT images of the head were performed without the use of intravenous contrast. Automated exposure control was utilized for this study. A dose lowering technique was utilized adhering to the principles of ALARA. Comparison: None. Findings: The paranasal sinuses and mastoid air cells are clear. The calvarium and skull base are intact. There are 3 focal areas of vasogenic edema seen within the high convexities and left frontal lobe. The dominant focus of mesenteric edema within the left high convexity contains a 1.3 cm lesion. Therefore, the other areas of the vasogenic edema also likely contains small lesions. These findings are highly suspicious for metastatic disease. No significant midline shift or mass effect at this time. No intracranial hemorrhage or acute infarct. Impression: There are 3 separate areas of vasogenic edema within the brain with the largest in the left high convexity containing a 1.3 cm lesion. Therefore, the other areas of vasogenic edema also likely contain occult lesions. These findings are highly suspicious for metastatic disease. ACT 112: Negative or not required by law. Electronically signed by: Clinton Arredondo M.D. 07/03/2021 3:[address] 07/03/21 13:55 CT shoulder RT wo con HISTORY: 55 years-old Female Pt rt shoulder pain acute right shoulder pain COMPARISON: CTA chest of same day TECHNIQUE: Multiple axial CT images of the right shoulder were obtained without the use of IV contrast A dose lowering technique was used consistent with the principals of ALARA. FINDINGS: Right hilar/paramediastinal mass with 3.2 cm right upper lobe cavitary lesion. Groundglass and consolidative opacities of the right upper lung with scattered solid pulmonary nodules. A right apical pulmonary lesion is also present. Emphysema. Pathologic right supraclavicular adenopathy. Mild glenohumeral and AC joint osteoarthritis. No acute fracture, dislocation, intra-articular loose body, osseous erosion or suspicious bone lesion. Tendons and ligaments are not well evaluated by CT technique. No appreciable rotator cuff muscular atrophy. IMPRESSION: 1. Mild osteoarthritis of the right shoulder without acute fracture, dislocation or suspicious bone lesion. 2. Right hilar/paramediastinal mass with cavitary right upper lobe lesions are further described on CTA chest of same day. Groundglass and consolidative opacities of the right upper lobe are suggestive of postobstructive pneumonitis. 3. Pulmonary nodules and right supraclavicular adenopathy suggestive of metastatic disease. ACT 112: Negative or not required by law. The above report was generated using voice recognition software. It may contain grammatical, syntax or spelling errors. Electronically signed by: Fidencio Ross M.D. 07/03/2021 3:37 PM Code Status & VTE Plan VTE Prophylaxis Plan VTE Prophylaxis will be ordered: Yes Supervising Physician Co-Signing Physician Notes Attending Addendum: care coordinated with ALLAN Muniz please refer to her notes for full details, I agree with her notes patient seen and examined, records reviewed by myself as well on exam, patient seen resting in bed, comfortable, sitting up states right shoulder pain is well managed no chest pain, dyspnea, palpitations, dizziness no fever/chills, cough no headache, focal deficits no other symptoms VS noted and reviewed oriented x 3, not in distress, speaks in sentences with no effort nor accessory muscle use normal rate, regular rhythm, no murmurs clear breath sounds bilaterally non distended, soft, nontender no bipedal edema, erythema, warmth no neuro deficits WBC 12.[address] chest: 1. Asymmetric right lung interstitial thickening with right midlung and suprahilar opacity, including an irregular 2.1 cm suprahilar density. These findings may reflect pneumonia however a chest CT with contrast is recommended to exclude the possibility of a neoplastic process. 2. No acute fracture or dislocation within the right shoulder. Mild acromioclavicular joint osteoarthritis. Brain MRI: IMPRESSION: 1. An 11 mm focus of restricted diffusion involving the superior left cerebellar hemisphere is suggestive of an acute or subacute infarct with a moderate sized adjacent developmental venous anomaly. 2. A 3 mm focus of restricted diffusion involving the right parietal cortex favors artifact. An acute or subacute infarct is considered less likely. 3. There are at least six peripherally enhancing intra-axial lesions measuring up to 1.6 cm within the left frontal lobe near the vertex. This largest lesion demonstrates a considerable amount of surrounding vasogenic edema. No associated midline shift or hydrocephalus. These findings are suggestive of metastatic disease. ASSESSMENT AND PLAN Lung Mass With Brain Mets - Pain control - Decadron IV q6h - stable overall - awaiting transfer to [facility] other diagnoses and plan of care as per JUDITH Muniz's notes Tony Falcon MD
[2021-07-03] MEDS ORDERED: oxyCODONE HCL IR 5 MG TAB (IMMEDIATE RELEASE) PO PRN (20:20)
[2021-07-03] MEDS ORDERED: GADOBUTROL 65ML VIAL IV ONE (21:57)
[2021-07-03] MEDS: dexAMETHasone 4 MG in SYRINGE 0 ML IV SCH (22:53)
[2021-07-04] MEDS: dexAMETHasone 4 MG in SYRINGE 0 ML IV SCH (03:51)
[2021-07-04 06:42] LABS: Hematocrit (blood only) 40.1 % (37-47); Hemoglobin 13.2 g/dL (12.0-16.0); Mean Corpuscular Hemoglobin 31.7 pg (25-34); Mean Corpuscular Hgb Conc 32.9 g/dL (32-36); Mean Corpuscular Volume 96.4 fL (80-100); Mean Platelet Volume 10.9 fL (7.4-10.4); Platelet Count 295 K/uL (130-400); RDW Coefficient of Variation 13.9 % (11.5-14.5); RDW Standard Deviation 49.2 fL (36.4-46.3); Red Blood Count 4.16 M/uL (4.2-5.4); White Blood Count 10.96 K/uL (4.8-10.8)
[2021-07-04 07:11] LABS: BUN Creatinine Ratio 13.8 (10-20); Calcium 9.1 mg/dl (8.5-10.1); Creatinine Clr Calc Pharmacy 64.2 ml/min; Est GFR (African American) 92.1 ml/min; Est GFR (Non-African American) 79.4 ml/min
--- NOTE | 2021-07-04 08:38 | Magnetic Resonance Report ---
MR brain wo/w con: HISTORY: 55 years-old Female brain mass, acute strokelike symptoms with intracranial mass. COMPARISON: Head CT 07/03/2021. TECHNIQUE: Multiplanar multisequence MRI of the brain was obtained both with and without the use of 6 .0 mL of Gadavist. FINDINGS: The die grinder localizer images demonstrate no gross extracranial abnormality. A 3 mm focus of restricted diffusion involving the right parietal lobe cortex on image 16 series 4 demonstrates intermediate sig nal on the ADC map, T2 and FLAIR series. There is an 11 mm focus of increased diffusion-weighted sign al involving the superior left cerebellar hemisphere with intermediate to slightly decreased signal o n ADC map and increased T2/FLAIR signal. There is an adjacent moderate-sized developmental venous ano talib. No acute or subacute territorial infarct. No acute intracranial hemorrhage, midline shift or hydrocephalus. Cerebral venous sinuses and major a rterial flow voids are patent. Trace right mastoid effusion. Mild mucosal thickening of the ethmoid a ir cells. Rightward bowing and spurring of the nasal septum. The skull, orbits and soft tissues are w ithin normal limits. Motion degraded exam. Enhancing 1.6 cm lesion of the left frontal lobe near the vertex on image 101 s eries 15. A considerable amount of surrounding vasogenic edema results in local cortical expansion wi th sulcal effacement. An 8 mm enhancing lesion of the right frontal lobe near the vertex on image 99 series 15 with mild surrounding vasogenic edema. A 7 mm lesion of the left frontal lobe is present on image 60. A subcentimeter enhancing lesion is noted on image 79 within the right frontal lobe. A sub centimeter enhancing lesion is present within the left frontal lobe on image 70 of series 15. A subce ntimeter lesion is present within the mid cerebellar distribution on image 34 series 15. IMPRESSION: 1. An 11 mm focus of restricted diffusion involving the superior left cerebellar hemisphere is sugges tive of an acute or subacute infarct with a moderate sized adjacent developmental venous anomaly. 2. A 3 mm focus of restricted diffusion involving the right parietal cortex favors artifact. An acute or subacute infarct is considered less likely. 3. There are at least six peripherally enhancing intra-axial lesions measuring up to 1.6 cm within th e left frontal lobe near the vertex. This largest lesion demonstrates a considerable amount of surrou nding vasogenic edema. No associated midline shift or hydrocephalus. These findings are suggestive of metastatic disease. ACT 112: Negative or not required by law. The above report was generated using voice recognition software. It may contain grammatical, syntax o r spelling errors. Dictated: 07/04/2021 7:30 AM Transcribed: 07/04/2021 8:15 AM [facility] [id number] [facility] Electronically signed by: Fidencio Ross M.D. 07/04/2021 8:36 AM
--- NOTE | 2021-07-05 15:40 | Communication Note ---
Date of Service: July 05, 2021 visited patient's room around 1:00pm patient already transferred to [facility] in AM undersigned was not notified that patient was being transferred already Tony Falcon MD
== END 2021-07-04 08:05 | disposition short-term general hospital (02) | DRG 55 ==
LOC: ED 11:42 → 2S 16:59
DX: R91.1 Solitary pulmonary nodule; R91.8 Other nonspecific abnormal finding of lung field; C79.31 Secondary malignant neoplasm of brain; F17.210 Nicotine dependence, cigarettes, uncomplicated; R03.0 Elevated blood-pressure reading, without diagnosis of hypertension; M25.511 Pain in right shoulder

== ENCOUNTER 2021-07-23 07:35 | Inpatient (IN) ==
[2021-07-23] MEDS ORDERED: ONDANSETRON INJ 2 MG/ML 2 ML VIAL IV STA (08:18)
[2021-07-23] MEDS ORDERED: fentaNYL citrate 100 MCG/2 ML VIAL IV STA ×3 (08:18→13:39)
--- NOTE | 2021-07-23 08:22 | Emergency Department Note ---
History of Present Illness General Chief complaint: Shortness of Breath/Dyspnea Stated complaint: SOB Time Seen by Provider: 07/23/21 07:56 History of Present Illness Maximum Pain Intensity: 8 Patient is a 55-year-old female with recent diagnosis of lung cancer with metastatic disease to the liver and brain presents the emergency department for evaluation of posterior right shoulder pain. She notes a constant, throbbing right posterior shoulder pain that she rates an 8/10. It does not radiate. This is the same pain that prompted her to present to this emergency department on 07/03, which resulted in the cancer diagnosis. She was admitted here, then transferred to [facility]. She was there for about 5 days. She had additional testing and was seen by oncology and radiation oncology and is getting set up for treatment. They did not start her on any new medications. She has an oncology appointment tomorrow at [facility]. She has not started any treatment. She also notes that about 3 or 4 days ago, she developed a red, splotchy, itchy rash, from her neck down to her waistline. She had a telehealth visit with her primary care provider and they suggested taking Benadryl which has not helped. In the last 2 days she has become increasingly more short of br eath. She has been using an albuterol inhaler and nebulizer treatments as often as every 4 hours, also without relief. No fevers. No sputum production. No chest pain. She essentially states that she is the same as she was when she came in on 07/03. She was not prescribed any medication for pain. She reports continued smoking. She did get a Covid vaccine. She denies any headache, lightheadedness or dizziness. No abdominal pain, nausea or vomiting. No diarrhea or urinary symptoms. Home Medications Medication Instructions Recorded Confirmed Type epinephrine 0.3 mg/0.3 mL 0.3 mg IM Q4H #0 12/01/15 07/23/21 History injection, auto-injector ibuprofen 200 mg tablet 400 mg PO Q6H PRN 07/03/21 07/23/21 History albuterol sulfate 90 mcg/actuation 2 inh INHALATION QID 07/23/21 07/23/21 History aerosol inhaler Allergies Allergy/AdvReac Type Severity Reaction Status Date / Time bee venom protein (honey bee) Allergy Severe Anaphylaxis Unverified 07/23/21 09:40 acetaminophen Allergy Unknown vomiting Verified 07/23/21 09:40 Past Med/Surg History Medical History Brain metastases Lung mass Metastatic disease Surgical History History of History of carpal tunnel surgery Family History Father Lung cancer Social History Smoking Status: Current every day smoker Tobacco Type: Cigarettes Cigarettes Per Day: 10; Hx Alcohol Use: Yes Alcohol type: beer Alcohol Intake Frequency: 2-4 x/Month Hx Substance Use: Yes Last Used Substance: Days (ago) Preferred Language: Citizen Of [place] Communication Ability: Effective Credit Correspondence Clerk Required: No Beliefs That Will Affect Care: None Current Living Situation: Family Feels Safe at Home: Yes Assistive Devices: Denture - Upper, Denture - Lower and Glasses Review of Systems A total of 10 systems reviewed and were otherwise negative Physical Exam Vital Signs Vital Signs - 24 hr 07/23/21 07:45 07/23/21 08:47 07/23/21 09:04 Temperature 37.5 C Temperature Source Temporal Artery Scan Pulse Rate 110 H Pulse Rate [Right Finger] 102 H Respiratory Rate 18 24 Respiratory Effort / Characteristics Short of Breath Non-Labored Respiratory Depth Normal Respiratory Pattern Regular Blood Pressure 135/84 Blood Pressure [Left Arm] 162/83 H Blood Pressure Mean 101 Blood Pressure Mean [Left Arm] 109 Blood Pressure Position Sitting Pulse Oximetry 92 93 Oxygen Delivery Method Room Air Room Air Oxygen Flow Rate Sepsis Recent Fever Within 48 Hours No Sepsis New/Unexplained Change in Mental Status N/A Sepsis Action Taken by Nursing No Action Required Oxygen Flow Rate - Titration Pulse Oximetry Post Tiitration 07/23/21 09:19 07/23/21 10:27 07/23/21 12:20 Temperature Temperature Source Pulse Rate Pulse Rate [Right Finger] 98 H 104 H Respiratory Rate 20 24 Respiratory Effort / Characteristics Respiratory Depth Respiratory Pattern Blood Pressure Blood Pressure [Left Arm] 150/96 H 147/93 H Blood Pressure Mean Blood Pressure Mean [Left Arm] 114 111 Blood Pressure Position Pulse Oximetry 88 L 95 93 Oxygen Delivery Method Nasal Cannula Room Air Oxygen Flow Rate 1 1 Sepsis Recent Fever Within 48 Hours Sepsis New/Unexplained Change in Mental Status Sepsis Action Taken by Nursing Oxygen Flow Rate - Titration 1 Pulse Oximetry Post Tiitration 92 07/23/21 14:20 07/23/21 14:53 Temperature Temperature Source Pulse Rate Pulse Rate [Right Finger] 96 H Respiratory Rate 22 Respiratory Effort / Characteristics Respiratory Depth Respiratory Pattern Blood Pressure Blood Pressure [Left Arm] 164/88 H Blood Pressure Mean Blood Pressure Mean [Left Arm] 113 Blood Pressure Position Pulse Oximetry 93 93 Oxygen Delivery Method Nasal Cannula Nasal Cannula Oxygen Flow Rate 3 Sepsis Recent Fever Within 48 Hours Sepsis New/Unexplained Change in Mental Status Sepsis Action Taken by Nursing Oxygen Flow Rate - Titration Pulse Oximetry Post Tiitration CONSTITUTIONAL: Patient is a nontoxic-appearing 55-year-old female who is awake and alert and in no acute distress. She is noted to be tachycardic, but not externally short of breath. No conversational dyspnea. EYES: Pupils equal, round, reactive to light and accommodation. EOMs intact without nystagmus. Sclera are anicteric. ENT: Tympanic membranes intact, with normal landmarks. External canals are clear. Oral and nasopharynx are clear. Mucous membranes are moist, no lesions, tongue and gums appear normal. CARDIOVASCULAR: Tachycardic rate and rhythm, with normal S1 and S2, no murmur appreciated. Peripheral pulses easy to palpable. RESPIRATORY: Breath sounds equal bilaterally, coarse breath sounds noted however, no wheezes or rhonchi. Full and equal chest expansion without accessory muscle use or retractions. GI: Bowel sounds are present. Abdomen is soft, nontender, nondistended. No organomegaly. No pulsatile masses. No guarding or rebound. MUSCULOSKELETAL: Full range of motion of extremities x 4 with good strength. No cyanosis, edema, joint tenderness or swelling. No deformity. INTEGUMENTARY: Generalized erythematous macular rash noted over the torso and abdomen. It blanches. No vesicles, petechiae or wheals noted. No skin sloughing. NEUROLOGICAL: Alert, oriented, and cooperative. Cranial nerves, sensation and strength grossly intact. Pupils round, equal, and react to light, EOMs are full. LYMPH: No lymphadenopathy. Course Course The patient was seen and assessed as above. Old records are reviewed. She presents the emergency department complaining of right shoulder pain that has been present for several weeks duration. She also notes some increasing shortness of breath. She was recently diagnosed with lung cancer with metastatic disease to the brain and liver. She is still being evaluated and has yet to start any treatment. Her primary concern is the shoulder pain. IV lock was initiated and laboratory studies were collected. CBC with differential, CMP, coags, troponin and urinalysis were collected. She was placed on a monitor and storage bin tender and observed. She was hydrated with normal saline solution and medicated with fentanyl 50 mcg IV and Zofran 4 mg IV. EKG, chest x-ray and chest CT for PE were ordered. A Covid swab was obtained. Patient history and presentation were reviewed with attending physician who concurred with the ED work-up. Laboratory studies note a 14,400 white count. H&H 11.9 and 35.9, platelet count is 135,000. INR 1.2. Electrolytes are without significant abnormality requiring correction. Glucose elevated at 300. Troponin elevated at 0.102. U rine microscopy notes glucose urea, trace blood and greater than 30 epithelial cells. No bacteria. A Covid swab was negative. Chest x-ray noted redemonstration of the right upper lobe mass with progressive consolidation in the right lung suggestive of postobstructive pneumonitis. Degenerative changes of the shoulder and spine noted. No pneumothorax. No large pleural effusion. Chest CT notes multiple bilateral pulmonary emboli, including embolus within the distal left main pulmonary artery extending into the majority of the segmental pulmonary arteries. No pneumothorax. There has been interval progression of the mediastinal/right hilar infiltrative mass, with progressive moderate to severe narrowing of the superior vena cava. No evidence for SVC obstruction at this time. Progressive groundglass opacities consistent with either postobstructive pneumonitis or superimposed pulmonary infarcts noted. Patient was reassessed. Laboratory studies were reviewed with her. Findings on the CT scan were discussed. She was endorsing some increased discomfort and was given additional fentanyl 50 mcg IV. Of note, she did drop her O2 sat into the upper 80s after the first dose of fentanyl, and was placed on nasal cannula oxygen. Oxygen was titrated up from 1 L to about 3 L. Laboratory and diagnostic imaging studies were reviewed with attending physician. Patient was reviewed with the [facility], Dr. Najera. After discussion with him, IV heparin was initiated. While awaiting admission orders, nursing staff contacted me stating that the patient was noting some increased pain, she was given a third dose of fentanyl 50 mcg IV pending bed placement. Cardiac monitoring: An order was placed for continuous cardiac monitoring. The monitor shows a sinus tachycardia between 96 and 110 bpm. Administered Medications Sodium Chloride (Nss 1000ml) 1,000 mls @ 250 mls/hr IV .Q4H SACHIN Stop: 08/22/21 08:29 Last Admin: 07/23/21 14:22 Dose: 250 mls/hr Documented by: [id number] Infusion: 07/23/21 13:08 Dose: 250 mls/hr Documented by: [id number] Admin: 07/23/21 09:08 Dose: 250 mls/hr Documented by: [id number] Heparin Sodium/Dextrose (Heparin Sodium/Dextrose) 25,000 units in 500 mls @ 19 mls/hr IV .Q24H SACHIN; Protocol Stop: 08/22/21 11:29 Last Admin: 07/23/21 11:33 Dose: 950 units/hr, 19 mls/hr Documented by: [id number] Cosigned by: [id number] Discontinued Medications Fentanyl Citrate (Fentanyl Citrate 100 Mcg/2 Ml Vial) 50 mcg IV NOW STA Stop: 07/23/21 08:19 Last Admin: 07/23/21 09:07 Dose: 50 mcg Documented by: [id number] Fentanyl Citrate (Fentanyl Citrate 100 Mcg/2 Ml Vial) 50 mcg IV NOW STA Stop: 07/23/21 11:57 Last Admin: 07/23/21 12:18 Dose: 50 mcg Documented by: [id number] Fentanyl Citrate (Fentanyl Citrate 100 Mcg/2 Ml Vial) 50 mcg IV NOW STA Stop: 07/23/21 13:40 Last Admin: 07/23/21 13:44 Dose: 50 mcg Documented by: [id number] Ioversol (Optiray 320 125ml) 118 ml IV ONCE ONE Stop: 07/23/21 08:50 Last Admin: 07/23/21 08:49 Dose: 118 ml Documented by: [id number] Ondansetron HCl (Ondansetron Inj 2 Mg/Ml 2 Ml Vial) 4 mg IV NOW STA Stop: 07/23/21 08:19 Last Admin: 07/23/21 09:07 Dose: 4 mg Documented by: [id number] Oxycodone HCl (Oxycodone Hcl Ir 5 Mg Tab (Immediate Release)) Confirm Administered Dose 5 mg .ROUTE .STK-MED ONE Stop: 07/23/21 14:34 Last Admin: 07/23/21 14:35 Dose: 5 mg Documented by: [id number] Medical Decision Making Differential Diagnosis Differential diagnosis includes acute myocardial infarction, acute coronary syndrome, myocarditis, pericarditis, pericardial effusions /tamponade, esophageal perforation, pulmonary embolism, pneumonia, pneumothorax, cardiomyopathy, congestive heart failure, anemia , COPD/asthma exacerbation, musculoskeletal, anxiety, costochondritis, worsening metastatic disease, among others.. Medical Records Attestation: I reviewed the patient's medical records. Home Medications Current Medication List: was personally reviewed by me Laboratory Data Attestation: I reviewed the patient's lab results. Result diagrams: 07/23/21 09:02 07/23/21 09:02 Lab Results 07/23/21 07/23/21 07/23/21 Range/Units 09:02 09:02 09:02 WBC 14.49 H (4.8-10.8) K/uL RBC 3.77 L (4.2-5.4) M/uL Hgb 11.8 L (12.0-16.0) g/dL Hct 35.9 L (37-47) % MCV 95.2 (80-100) fL MCH 31.3 (25-34) pg MCHC 32.9 (32-36) g/dL RDW Std Deviation 47.5 H (36.4-46.3) fL RDW Coeff of Jasson 13.7 (11.5-14.5) % Plt Count 135 (130-400) K/uL MPV 10.9 H (7.4-10.4) fL Immature Gran % (Auto) 0.3 % Neut % (Auto) 83.6 % Lymph % (Auto) 5.2 % [place] % (Auto) 5.1 % Eos % (Auto) 5.7 % Baso % (Auto) 0.1 % Neut # (Auto) 12.11 H (1.4-6.5) K/uL Lymph # (Auto) 0.75 L (1.2-3.4) K/uL [place] # (Auto) 0.74 H (0.11-0.59) K/uL Eos # (Auto) 0.83 H (0-0.5) K/uL Baso # (Auto) 0.02 (0-0.2) K/uL Immature Gran # (Auto) 0.04 H (0.00-0.02) K/uL PT 11.9 (9.0-12.0) Seconds INR 1.2 H (0.9-1.1) APTT 25.8 (21.0-31.0) Seconds PTT Ratio 1.0 Sodium 134 L (136-145) mmol/L Potassium 4.1 (3.5-5.1) mmol/L Chloride 100 (98-107) mmol/L Carbon Dioxide 26 (21-32) mmol/L Anion Gap 8.0 (3-11) BUN 8 (7-18) mg/dl Creatinine 1.05 (0.6-1.2) mg/dl Est Cr Clr Drug Dosing 49.5 ml/min Est GFR ( Amer) 68.3 ml/min Est GFR (Non-Af Amer) 58.9 ml/min BUN/Creatinine Ratio 7.6 L (10-20) Glucose 299 H (70-99) mg/dl Calcium 8.3 L (8.5-10.1) mg/dl Total Bilirubin 0.6 (0.2-1) mg/dl AST 13 L (15-37) U/L ALT 39 (12-78) U/L Alkaline Phosphatase 122 H (45-117) U/L Troponin I 0.102 H* (0-0.045) ng/ml Total Protein 6.4 (6.4-8.2) gm/dl Albumin 2.7 L (3.4-5.0) gm/dl Globulin 3.7 (2.5-4.0) gm/dl Albumin/Globulin Ratio 0.7 L (0.9-2) Urine Color Urine Appearance (Clear) Urine pH (4.5-7.5) Ur Specific [place] (1.000-1.030) Urine Protein (Negative) Urine Glucose (UA) (Negative) Urine Ketones (Negative) Urine Blood (Negative) Urine Nitrite (Negative) Urine Bilirubin (Negative) Urine Urobilinogen (Negative) Ur Leukocyte Esterase (Negative) Urine RBC (0-4) /hpf Urine WBC (0-5) /hpf Ur Epithelial Cells (0-5) /lpf Urine Bacteria (Negative) COVID-19 Eval Order SARS-CoV-2 (PCR) (Negative) 07/23/21 07/23/21 07/23/21 Range/Units 09:15 09:15 11:57 WBC (4.8-10.8) K/uL RBC (4.2-5.4) M/uL Hgb (12.0-16.0) g/dL Hct (37-47) % MCV (80-100) fL MCH (25-34) pg MCHC (32-36) g/dL RDW Std Deviation (36.4-46.3) fL RDW Coeff of Jasson (11.5-14.5) % Plt Count (130-400) K/uL MPV (7.4-10.4) fL Immature Gran % (Auto) % Neut % (Auto) % Lymph % (Auto) % [place] % (Auto) % Eos % (Auto) % Baso % (Auto) % Neut # (Auto) (1.4-6.5) K/uL Lymph # (Auto) (1.2-3.4) K/uL [place] # (Auto) (0.11-0.59) K/uL Eos # (Auto) (0-0.5) K/uL Baso # (Auto) (0-0.2) K/uL Immature Gran # (Auto) (0.00-0.02) K/uL PT (9.0-12.0) Seconds INR (0.9-1.1) APTT (21.0-31.0) Seconds PTT Ratio Sodium (136-145) mmol/L Potassium (3.5-5.1) mmol/L Chloride (98-107) mmol/L Carbon Dioxide (21-32) mmol/L Anion Gap (3-11) BUN (7-18) mg/dl Creatinine (0.6-1.2) mg/dl Est Cr Clr Drug Dosing ml/min Est GFR ( Amer) ml/min Est GFR (Non-Af Amer) ml/min BUN/Creatinine Ratio (10-20) Glucose (70-99) mg/dl Calcium (8.5-10.1) mg/dl Total Bilirubin (0.2-1) mg/dl AST (15-37) U/L ALT (12-78) U/L Alkaline Phosphatase (45-117) U/L Troponin I (0-0.045) ng/ml Total Protein (6.4-8.2) gm/dl Albumin (3.4-5.0) gm/dl Globulin (2.5-4.0) gm/dl Albumin/Globulin Ratio (0.9-2) Urine Color Yellow Urine Appearance Clear (Clear) Urine pH 6.5 (4.5-7.5) Ur Specific [place] > 1.045 H (1.000-1.030) Urine Protein Trace H (Negative) Urine Glucose (UA) 3+ H (Negative) Urine Ketones Negative (Negative) Urine Blood 1+ H (Negative) Urine Nitrite Negative (Negative) Urine Bilirubin Negative (Negative) Urine Urobilinogen Negative (Negative) Ur Leukocyte Esterase Negative (Negative) Urine RBC 5-10 H (0-4) /hpf Urine WBC 5-10 H (0-5) /hpf Ur Epithelial Cells >30 H (0-5) /lpf Urine Bacteria Negative (Negative) COVID-19 Eval Order Covid19 at [facility] SARS-CoV-2 (PCR) NEGATIVE (Negative) Imaging Data Attestation: I personally reviewed and interpreted this imaging study as follows: Radiologist's Impression: Chest X-Ray 07/23/21 08:18 XR chest 1V portable HISTORY: 55 years-old Female sob acute shortness of breath COMPARISON: CTA chest 07/03/2021 TECHNIQUE: Portable AP view of the chest FINDINGS: Right upper lobe mass redemonstrated with ill-defined margins. Progressively worsened right perihilar and right midlung consolidation. No pneumothorax or large pleural effusion. Mild left hemidiaphragm elevation with mild left lung base atelectasis. Numerous bilateral solid nodules are better seen on comparison. Degenerative changes of the shoulders and spine. IMPRESSION: 1. Right upper lobe mass redemonstrated with progressive consolidation of the right lung suggestive of postobstructive pneumonitis changes. 2. Numerous pulmonary metastasis are better seen on comparison CTA of the chest. ACT 112: Negative or not required by law. The above report was generated using voice recognition software. It may contain grammatical, syntax or spelling errors. Electronically signed by: Fidencio Ross M.D. 07/23/2021 9:11 AM Chest CTA 07/23/21 08:19 CHEST CTA for PULMONARY ARTERIES CT DOSE: 267.50 mGy.cm HISTORY: Shortness of breath. Lung cancer. Hemoptysis. Right shoulder pain. TECHNIQUE: Multiaxial CT images of the chest were performed following the intravenous administration of contrast to evaluate the pulmonary arteries. Maximal intensity projection images were also obtained. A dose lowering technique was utilized adhering to the principles of ALARA. COMPARISON STUDY: Chest CT 07/03/2021. FINDINGS: Limited views the upper abdomen demonstrate multiple hepatic met astases and right adrenal gland thickening suggestive of an adrenal metastasis. There is mild gastrohepatic lymphadenopathy. A distal paraesophageal lymph node has increased in size. Significant progression of the infiltrative mediastinal mass which extend into the right hilum and medial aspect of the right middle and upper lobes. There is progressive mediastinal and right hilar lymphadenopathy. T here is moderate to severe narrowing of the superior vena cava which has progressed. No evidence for occlusion at this time. Multiple bilateral pulmonary emboli including an embolus within the distal left main pulmonary artery extending into the majority of the segmental pulmonary arteries. No pneum othorax. Mild narrowing of the right upper lobe bronchus with occlusion involving the anterior segmental bronchus the right upper lobe. This is similar to the prior study. Scattered bilateral pulmonary nodules consistent with metastatic disease are again noted. These have slightly increased in size in the interval. Dominant nodule within the right lower lobe measures 11 mm. Mild emphysema. Scattered groundglass airspace opacities within the right lung have slightly progressed. Left basilar densities favor subsegmental atelectasis. This is also progressed. The heart is normal in size. Normal caliber thoracic aorta with no evidence for dissection. No pleural or pericardial effusions. Persistent narrowing of the right superior pulmonary vein. No fractures within the visualized osseous structures. The supraclavicular lymphadenopathy has also slightly progressed. High-grade stenosis of the right upper lobe pulmonary artery with near occlusion is again noted. Right upper lobe cavitary mass has also increased in size. IMPRESSION: 1. Bilateral pulmonary emboli. 2. Interval progression of the mediastinal/right hilar large infiltrative mass with progressive moderate to severe narrowing of the superior vena cava. However, no evidence for SVC obstruction at this time. 3. Interval progression of the metastatic disease as described above. 4. Progressive groundglass airspace opacities within the right lung. This could be due to a postobstructive pneumonitis or superimposed pulmonary infarcts. ACT 112: Negative or not required by law. Electronically signed by: Clinton Arredondo M.D. 07/23/2021 10:38 AM MDM Narrative See ED course. Impression & Plan Bilateral pulmonary embolism, Lung mass, Metastatic disease, Elevated troponin, Hemoptysis, Shortness of breath Discharge Plan Visit Data Chief Complaint: Shortness of Breath/Dyspnea Stated Complaint: SOB ED Provider: [facility] Midlevel Provider: Vickey Winkler Discharge Problem: Bilateral pulmonary embolism, Lung mass, Metastatic disease, Elevated troponin, Hemoptysis, Shortness of breath Patient Disposition: Admitted As Inpatient Discharge Instructions Interventions: ED Discharge Assessment Last Done: 07/23/21 14:53 Forms Stand Alone Forms: [employer] Prescriptions Prescriptions: No Action epinephrine 0.3 mg/0.3 mL Auto-Injector 0.3 mg IM Q4H Qty: 0 RF: 0 ibuprofen 200 mg Tablet 400 mg PO Q6H PRN (Reason: Pain) RF: 0 albuterol sulfate 90 mcg/actuation HFA aerosol inhaler 2 inh inhalation QID RF: 0 Referrals Referrals: PCP,NO [Primary Care Provider] -
[2021-07-23] MEDS ORDERED: OPTIRAY 320 125ml IV ONE (08:49)
[2021-07-23] MEDS: SODIUM CHLORIDE 0.9% 1000ML 1,000 ML IV SCH ×2 (09:08→14:22)
--- NOTE | 2021-07-23 09:12 | XRay Report ---
XR chest 1V portable HISTORY: 55 years-old Female sob acute shortness of breath COMPARISON: CTA chest 07/03/2021 TECHNIQUE: Portable AP view of the chest FINDINGS: Right upper lobe mass redemonstrated with ill-defined margins. Progressively worsened right perihilar and right midlung consolidation. No pneumothorax or large pleural effusion. Mild left hemidiaphragm elevation with mild left lung base atelectasis. Numerous bilateral solid nodules are better seen on c omparison. Degenerative changes of the shoulders and spine. IMPRESSION: 1. Right upper lobe mass redemonstrated with progressive consolidation of the right lung suggestive o f postobstructive pneumonitis changes. 2. Numerous pulmonary metastasis are better seen on comparison CTA of the chest. ACT 112: Negative or not required by law. The above report was generated using voice recognition software. It may contain grammatical, syntax o r spelling errors. Electronically signed by: Fidencio Ross M.D. 07/23/2021 9:11 AM
[2021-07-23 09:26] LABS: Basophils # (auto) 0.02 K/uL (0-0.2); Basophils % (auto) 0.1 %; Eosinophils # (auto) 0.83 K/uL (0-0.5); Eosinophils % (auto) 5.7 %; Hematocrit (blood only) 35.9 % (37-47); Hemoglobin 11.8 g/dL (12.0-16.0); Immature Granulocytes # (auto) 0.04 K/uL (0.00-0.02); Immature Granulocytes % (auto) 0.3 %; Lymphocytes # (auto) 0.75 K/uL (1.2-3.4); Lymphocytes % (auto) 5.2 %; Mean Corpuscular Hemoglobin 31.3 pg (25-34); Mean Corpuscular Hgb Conc 32.9 g/dL (32-36); Mean Corpuscular Volume 95.2 fL (80-100); Mean Platelet Volume 10.9 fL (7.4-10.4); Monocytes # (auto) 0.74 K/uL (0.11-0.59); Monocytes % (auto) 5.1 %; Neutrophils # (auto) 12.11 K/uL (1.4-6.5); Neutrophils % (auto) 83.6 %; Platelet Count 135 K/uL (130-400); RDW Coefficient of Variation 13.7 % (11.5-14.5); RDW Standard Deviation 47.5 fL (36.4-46.3); Red Blood Count 3.77 M/uL (4.2-5.4); White Blood Count 14.49 K/uL (4.8-10.8)
[2021-07-23 09:36] LABS: INR 1.2 (0.9-1.1); Partial Thromboplastin Time 25.8 Seconds (21.0-31.0); Prothrombin Time 11.9 Seconds (9.0-12.0)
[2021-07-23 09:45] LABS: Albumin Level 2.7 gm/dl (3.4-5.0); BUN Creatinine Ratio 7.6 (10-20); Calcium 8.3 mg/dl (8.5-10.1); Creatinine Clr Calc Pharmacy 49.5 ml/min; Est GFR (African American) 68.3 ml/min; Est GFR (Non-African American) 58.9 ml/min; Potassium 4.1 mmol/L (3.5-5.1)
[2021-07-23 09:54] LABS: Albumin Globulin Ratio 0.7 (0.9-2); Bilirubin,Total 0.6 mg/dl (0.2-1); Globulin 3.7 gm/dl (2.5-4.0); Total Protein 6.4 gm/dl (6.4-8.2); Troponin I 0.102 ng/ml (0-0.045)
--- NOTE | 2021-07-23 10:39 | CT Scan Report ---
CHEST CTA for PULMONARY ARTERIES CT DOSE: 267.50 mGy.cm HISTORY: Shortness of breath. Lung cancer. Hemoptysis. Right shoulder pain. TECHNIQUE: Multiaxial CT images of the chest were performed following the intravenous administration of contrast to evaluate the pulmonary arteries. Maximal intensity projection images were also obtaine d. A dose lowering technique was utilized adhering to the principles of ALARA. COMPARISON STUDY: Chest CT 07/03/2021. FINDINGS: Limited views the upper abdomen demonstrate multiple hepatic metastases and right adrenal g land thickening suggestive of an adrenal metastasis. There is mild gastrohepatic lymphadenopathy. A d istal paraesophageal lymph node has increased in size. Significant progression of the infiltrative me diastinal mass which extend into the right hilum and medial aspect of the right middle and upper lobe s. There is progressive mediastinal and right hilar lymphadenopathy. There is moderate to severe narr owing of the superior vena cava which has progressed. No evidence for occlusion at this time. Multipl e bilateral pulmonary emboli including an embolus within the distal left main pulmonary artery extend ing into the majority of the segmental pulmonary arteries. No pneumothorax. Mild narrowing of the rig ht upper lobe bronchus with occlusion involving the anterior segmental bronchus the right upper lobe. This is similar to the prior study. Scattered bilateral pulmonary nodules consistent with metastatic disease are again noted. These have slightly increased in size in the interval. Dominant nodule with in the right lower lobe measures 11 mm. Mild emphysema. Scattered groundglass airspace opacities with in the right lung have slightly progressed. Left basilar densities favor subsegmental atelectasis. Th is is also progressed. The heart is normal in size. Normal caliber thoracic aorta with no evidence fo r dissection. No pleural or pericardial effusions. Persistent narrowing of the right superior pulmona ry vein. No fractures within the visualized osseous structures. The supraclavicular lymphadenopathy h as also slightly progressed. High-grade stenosis of the right upper lobe pulmonary artery with near o cclusion is again noted. Right upper lobe cavitary mass has also increased in size. IMPRESSION: 1. Bilateral pulmonary emboli. 2. Interval progression of the mediastinal/right hilar large infiltrative mass with progressive moder ate to severe narrowing of the superior vena cava. However, no evidence for SVC obstruction at this t ariadna. 3. Interval progression of the metastatic disease as described above. 4. Progressive groundglass airspace opacities within the right lung. This could be due to a postobstr uctive pneumonitis or superimposed pulmonary infarcts. ACT 112: Negative or not required by law. Electronically signed by: Clinton Arredondo M.D. 07/23/2021 10:38 AM
[2021-07-23] MEDS ORDERED: Heparin IV Adult Wt-Based Standard *NO* Bolus Protocol ONE (11:13)
[2021-07-23] MEDS ORDERED: HEPARIN SODIUM/DEXTROSE 25,000 UNITS/500 ML BAG IV SCH (11:30)
[2021-07-23] MEDS: HEPARIN SODIUM/DEXTROSE 25,000 UNITS/500 ML BAG IV SCH (11:33)
[2021-07-23 12:23] LABS: Appearance Urine Clear (Clear); Bilirubin Urine Negative (Negative); Blood Urine 1+ (Negative); Color Urine Yellow; Glucose Urine UA 3+ (Negative); Ketones Urine Negative (Negative); Leukocyte Esterase Urine Negative (Negative); Nitrite Urine Negative (Negative); Protein Urine Trace (Negative); Specific Gravity Urine > 1.045 (1.000-1.030); Urobilinogen Urine Negative (Negative); pH Urine 6.5 (4.5-7.5)
--- NOTE | 2021-07-23 12:33 | History & Physical Report ---
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 Interval progression of the mediastinal/right hilar large infiltrative mass with progressive moderate to severe narrowing of the superior vena cava. Progressive groundglass airspace opacities within the right lung. This could be due to a postobstructive pneumonitis or superimposed pulmonary infarcts. Will start on heparin drip since pt has been having hemoptysis Will get an Echo in am Will discuss with Oncology in am about choice of anticoagulant on discharge Will monitor closely for any worsening hemoptysis Will need a repeat CT chest in 4 to 6 weeks for follow up of possible pulmonary infarct (3) Brain metastases: (4) Metastatic disease: (5) Lung mass: Plan: recently diagnosed few months ago with biopsy showed adenocarcinoma CT chest showed Interval progression of the mediastinal/right hilar large infiltrative mass with progressive moderate to severe narrowing of the superior vena cava. However, no evidence for SVC obstruction at this time. She has an appointment with Oncology tomorrow to discuss about treatment option Will notify oncology in am about pt is being admitted (6) Hyperglycemia: Plan: Possible related to diabetes (Possible worsening due to recent steroid therapy )\ Will check Hba1c in am Will start on insulin sliding scale while in the hospital Continue monitor BS (7) Elevated troponin: Plan: Mostly related to PE Troponin on admission 0.102 Denies any chest pain EKG showed no acute ischemic changes Pt was started on heparin drip due to evidence of PE on CTA chest Will trend troponin Will get and echo in am to r/o RV strain Continue monitor closely Rash Etiology unknown Will continue Benadryl prn Consider to add topical steroid if no improvement DVT px on Heparin drip CODE STATUS FULL CODE History of Present Illness Chief Complaint: Worsening SOB Primary Care Provider: NO PCP 55-year-old female with recent diagnosis of lung cancer with metastatic disease to the liver and brain presents the emergency department for evaluation of worsening SOB. Pt was recently admitted at [facility], [place] last month for right right posterior shoulder pain and was found to have a mass in RUL lung mass with metastases to Liver and brain with brain edema. She was transferred to a tertiary care to [facility]. She had biopsy done that confirmed adenocarcinoma. She said that she is scheduled to see Oncology tomorrow to discuss about treatment plan. She continues to have right shoulder pain. She said that in the last few days she has been having worsening SOB with minimal exertion. She said that she continues to have hemoptysis that is the same since last admission. She has been using an albuterol inhaler and nebulizer treatments as often as every 4 hours, also without relief. She said that she developed a rash associated with itching in her chest, back and upper extremities in the last 3 days and was given benadryl with no help. She denies any headache, chest pain, lightheadedness, dizziness, nausea or vomiting, or urinary symptoms. CTA chest done in the ER showed bilateral pulmonary emboli. Allergies Allergy/AdvReac Type Severity Reaction Status Date / Time bee venom protein (honey bee) Allergy Severe Anaphylaxis Unverified 07/23/21 09:40 acetaminophen Allergy Unknown vomiting Verified 07/23/21 09:40 Home Medications Medication Instructions Recorded Confirmed Type epinephrine 0.3 mg/0.3 mL 0.3 mg IM Q4H #0 12/01/15 07/23/21 History injection, auto-injector ibuprofen 200 mg tablet 400 mg PO Q6H PRN 07/03/21 07/23/21 History albuterol sulfate 90 mcg/actuation 2 inh INHALATION QID 07/23/21 07/23/21 History aerosol inhaler Past Med/Surg History Medical History Brain metastases Lung mass Metastatic disease Surgical History History of History of carpal tunnel surgery Family History Father Lung cancer Social History Smoking Status: Current every day smoker Tobacco Type: Cigarettes Cigarettes Per Day: 10; Hx Alcohol Use: Yes Alcohol type: beer Alcohol Intake Frequency: 2-4 x/Month Hx Substance Use: Yes Last Used Substance: Days (ago) Preferred Language: Tamaz[place] Communication Ability: Effective Product Safety Officer Required: No Beliefs That Will Affect Care: None Current Living Situation: Family Other Information That Helps Us Care for You: No Feels Safe at Home: Yes Safety Concerns: Feels Safe At This Time Assistive Devices: Denture - Upper, Denture - Lower, Glasses and Oxygen - Continuous Review of Systems Review of Systems: All systems reviewed & are unremarkable except as noted in HPI & below Physical Exam Physical Exam: General- No acute distress Head- atraumatic Eyes- PERRL, EOMI, ENT- oropharynx clear Neck- supple, no JVD Lungs- clear to auscultation Heart- regular rhythm; no murmur Abdomen- normal bowel sounds, soft, nontender Extremities- no calf tenderness Neuro- alert, oriented x 3; PERRL, EOMI; no facial palsy; no dysarthria Skin- +rash in chest, arms and upper back area. Results & Data Results & Data ([facility]) Vital Signs (Past 12 Hours) Vital Signs Temp Pulse Pulse Resp BP BP Pulse Ox 07/23/21 12:20 104 H 24 147/93 H 93 07/23/21 10:27 98 H 20 150/96 H 95 07/23/21 09:19 88 L 07/23/21 09:04 102 H 24 162/83 H 93 07/23/21 07:45 37.5 C 110 H 18 135/84 92 Diagnostic Findings CHEST CTA for PULMONARY ARTERIES CT DOSE: 267.50 mGy.cm HISTORY: Shortness of breath. Lung cancer. Hemoptysis. Right shoulder pain. TECHNIQUE: Multiaxial CT images of the chest were performed following the intravenous administration of contrast to evaluate the pulmonary arteries. Maximal intensity projection images were also obtained. A dose lowering technique was utilized adhering to the principles of ALARA. COMPARISON STUDY: Chest CT 07/03/2021. FINDINGS: Limited views the upper abdomen demonstrate multiple hepatic metastases and right adrenal gland thickening suggestive of an adrenal metastasis. There is mild gastrohepatic lymphadenopathy. A distal paraesophageal lymph node has increased in size. Significant progression of the infiltrative mediastinal mass which extend into the right hilum and medial aspect of the right middle and upper lobes. There is progressive mediastinal and right hilar lymphadenopathy. There is moderate to severe narrowing of the superior vena cava which has progressed. No evidence for occlusion at this time. Multiple bilateral pulmonary emboli including an embolus within the distal left main pulmonary artery extending into the majority of the segmental pulmonary arteries. No pneumothorax. Mild narrowing of the right upper lobe bronchus with occlusion involving the anterior segmental bronchus the right upper lobe. This is similar to the prior study. Scattered bilateral pulmonary nodules consistent with metastatic disease are again noted. These have slightly increased in size in the interval. Dominant nodule within the right lower lobe measures 11 mm. Mild emphysema. Scattered groundglass airspace opacities within the right lung have slightly progressed. Left basilar densities favor subsegmental atelectasis. This is also progressed. The heart is normal in size. Normal caliber thoracic aorta with no evidence for dissection. No pleural or pericardial effusions. Persistent narrowing of the right superior pulmonary vein. No fractures within the visualized osseous structures. The supraclavicular lymphadenopathy has also slightly progressed. High-grade stenosis of the right upper lobe pulmonary artery with near occlusion is again noted. Right upper lobe cavitary mass has also increased in size. IMPRESSION: 1. Bilateral pulmonary emboli. 2. Interval progression of the mediastinal/right hilar large infiltrative mass with progressive moderate to severe narrowing of the superior vena cava. However, no evidence for SVC obstruction at this time. 3. Interval progression of the metastatic disease as described above. 4. Progressive groundglass airspace opacities within the right lung. This could be due to a postobstructive pneumonitis or superimposed pulmonary infarcts. ACT 112: Negative or not required by law. Electronically signed by: Clinton Arredondo M.D. 07/23/2021 10:38 AM Dictated: 07/23/21 1029Transcribed: 07/23/21 1029 XR chest 1V portable HISTORY: 55 years-old Female sob acute shortness of breath COMPARISON: CTA chest 07/03/2021 TECHNIQUE: Portable AP view of the chest FINDINGS: Right upper lobe mass redemonstrated with ill-defined margins. Progressively worsened right perihilar and right midlung consolidation. No pneumothorax or large pleural effusion. Mild left hemidiaphragm elevation with mild left lung base atelectasis. Numerous bilateral solid nodules are better seen on comparison. Degenerative changes of the shoulders and spine. IMPRESSION: 1. Right upper lobe mass redemonstrated with progressive consolidation of the right lung suggestive of postobstructive pneumonitis changes. 2. Numerous pulmonary metastasis are better seen on comparison CTA of the chest. ACT 112: Negative or not required by law. The above report was generated using voice recognition software. It may contain grammatical, syntax or spelling errors. Electronically signed by: Fidencio Ross M.D. 07/23/2021 9:11 AM Dictated: 07/23/21908Transcribed: 07/23/21908 Code Status & VTE Plan VTE Prophylaxis Plan VTE Prophylaxis will be ordered: Yes (1) Metastatic disease Area of secondary neoplastic involvement: unspecified site Qualified Code(s): C79.9 - Secondary malignant neoplasm of unspecified site
[2021-07-23 12:40] LABS: Epithelial Cell Urine >30 /lpf (0-5)
[2021-07-23 12:44] LABS: Bacteria Urine Negative (Negative)
[2021-07-23] MEDS ORDERED: oxyCODONE HCL IR 5 MG TAB (IMMEDIATE RELEASE) ONE (14:33)
[2021-07-23] MEDS: ALBUTEROL HFA 8 GM INHALER INH PRN (17:23)
[2021-07-23] MEDS: oxyCODONE HCL IR 5 MG TAB (IMMEDIATE RELEASE) PO PRN (18:38)
[2021-07-23] MEDS: ALBUT/IPRATROP 3MG/0.5MG NEB 3 ML VIAL NEB SCH (19:23)
[2021-07-23 19:34] LABS: Partial Thromboplastin Ratio 1.5; Partial Thromboplastin Time 38.5 Seconds (21.0-31.0)
[2021-07-23] MEDS ORDERED: LORATADINE 10 MG TAB PO ONE (20:01)
[2021-07-23] MEDS ORDERED: INSULIN GLARGINE SOLOSTAR 100 UNITS/ML 3 ML PEN SC STA (20:25)
[2021-07-23] MEDS ORDERED: GLUCOSE 40% GEL 15 GM TUBE PO PRN (20:26)
[2021-07-23] MEDS ORDERED: GLUCAGON FOR INJ 1 MG VIAL SQ PRN (20:26)
[2021-07-23] MEDS ORDERED: CARBOHYDRATES FOR HYPOGLYCEMIA PO PRN (20:26)
[2021-07-23] MEDS ORDERED: GLUCOSE 10 TABS/TUBE PO PRN (20:26)
[2021-07-23] MEDS ORDERED: DEXTROSE 50% 50 ML SYRINGE IV PRN (20:26)
[2021-07-23] MEDS ORDERED: INSULIN ASPART 100 UNITS/ML 3 ML PEN SC SCH (20:30)
[2021-07-24] MEDS: oxyCODONE HCL IR 5 MG TAB (IMMEDIATE RELEASE) PO PRN ×4 (00:10→17:07)
[2021-07-24] MEDS: INSULIN ASPART 100 UNITS/ML 3 ML PEN SC SCH ×5 (01:39→20:51)
[2021-07-24] MEDS ORDERED: DEXTROSE 50% 50 ML SYRINGE IV PRN (02:04)
[2021-07-24] MEDS ORDERED: CARBOHYDRATES FOR HYPOGLYCEMIA PO PRN (02:04)
[2021-07-24] MEDS ORDERED: diphenhydrAMINE Capsule 25 MG CAP PO PRN (02:04)
[2021-07-24] MEDS ORDERED: GLUCOSE 40% GEL 15 GM TUBE PO PRN (02:04)
[2021-07-24] MEDS ORDERED: GLUCOSE 10 TABS/TUBE PO PRN (02:04)
[2021-07-24] MEDS ORDERED: GLUCAGON FOR INJ 1 MG VIAL SQ PRN (02:04)
[2021-07-24 02:28] LABS: Hematocrit (blood only) 29.7 % (37-47); Mean Corpuscular Hemoglobin 31.2 pg (25-34); Mean Corpuscular Hgb Conc 33.7 g/dL (32-36); Mean Corpuscular Volume 92.5 fL (80-100); Mean Platelet Volume 10.5 fL (7.4-10.4); Platelet Count 134 K/uL (130-400); RDW Coefficient of Variation 13.4 % (11.5-14.5); RDW Standard Deviation 44.9 fL (36.4-46.3); Red Blood Count 3.21 M/uL (4.2-5.4); White Blood Count 16.41 K/uL (4.8-10.8)
[2021-07-24 02:50] LABS: Partial Thromboplastin Ratio 1.8
[2021-07-24 02:57] LABS: Partial Thromboplastin Time 46.8 Seconds (21.0-31.0)
[2021-07-24 03:06] LABS: BUN Creatinine Ratio 11.7 (10-20); Calcium 7.9 mg/dl (8.5-10.1); Creatinine Clr Calc Pharmacy 77.4 ml/min; Est GFR (Non-African American) 96.6 ml/min; Troponin I 0.081 ng/ml (0-0.045)
[2021-07-24] MEDS: ALBUTEROL HFA 8 GM INHALER INH PRN (04:15)
[2021-07-24] MEDS ORDERED: INSULIN ASPART 100 UNITS/ML 3 ML PEN SC SCH (07:30)
[2021-07-24 07:32] LABS: Estimated Average Glucose 203 mg/dl; Hemoglobin A1C 8.7 % (4.5-5.6)
[2021-07-24] MEDS: ALBUT/IPRATROP 3MG/0.5MG NEB 3 ML VIAL NEB SCH ×4 (08:39→20:36)
[2021-07-24] MEDS ORDERED: ONDANSETRON INJ 2 MG/ML 2 ML VIAL IV PRN (12:10)
[2021-07-24] MEDS: HEPARIN SODIUM/DEXTROSE 25,000 UNITS/500 ML BAG IV SCH (13:22)
--- NOTE | 2021-07-24 15:01 | Electrocardiogram Report ---
Test Reason : Blood Pressure : / mmHG Vent. Rate : 104 BPM Atrial Rate : 104 BPM P-R Int : 124 ms QRS Dur : 082 ms QT Int : 350 ms P-R-T Axes : 061 018 062 degrees QTc Int : 460 ms Sinus tachycardia Otherwise normal ECG No previous ECGs available Confirmed by Kevin Nugent ([id number]) on 07/24/2021 3:01:24 PM Referred By: REFERRED SELF Confirmed By:Kevin Nugent
[2021-07-24] MEDS ORDERED: PROMETHAZINE HCL 12.5 MG in SODIUM CHLORIDE 0.9% 50 ML IV PRN (15:09)
--- NOTE | 2021-07-24 18:55 | Hospitalist Progress Note ---
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 Interval progression of the mediastinal/right hilar large infiltrative mass with progressive moderate to severe narrowing of the superior vena cava. Progressive groundglass airspace opacities within the right lung. This could be due to a postobstructive pneumonitis or superimposed pulmonary infarcts. Continue heparin drip since pt has been having hemoptysis Echo showed no RV strain case discussed with Oncology Dr. Medrano and agreed with the IV heparin then consider to transition to Eliquis on discharge Continue monitor H/H due to ongoing hepmotysis Will need a repeat CT chest in 4 to 6 weeks for follow up of possible pulmonary infarct (3) Brain metastases: (4) Metastatic disease: (5) Lung mass: Plan: recently diagnosed few months ago with biopsy showed adenocarcinoma CT chest showed Interval progression of the mediastinal/right hilar large infiltrative mass with progressive moderate to severe narrowing of the superior vena cava. However, no evidence for SVC obstruction at this time. She had an appointment with Oncology today to discuss about treatment option Dr. Medrano was informed about the patient is admitting in the hospital Dr. Medrano said that he would review her chart Will need outpatient follow (6) Hyperglycemia: Plan: Newly diagnosed DM Possible related to diabetes (Possible worsening due to recent steroid therapy )\ Hba1c 8.7 today On lantus and insulin sliding scale while in the hospital Will consider to start on metformin on Discharge Continue monitor BS (7) Elevated troponin: Plan: Mostly related to PE Troponin on admission 0.102, then trending down to 0.08 Denies any chest pain EKG showed no acute ischemic changes Pt was started on heparin drip due to evidence of PE on CTA chest ECHO showed no LV wall motion abnormality and no RV strain noted Clinically stable Questionable Pneumonitis CTA chest showed progressive groundglass airspace opacities within the right lung. Will start on Augmentin BID Incentive spirometry and pulm toilet Rash Etiology unknown Will continue Benadryl prn Consider to add topical steroid if no improvement DVT px on Heparin drip CODE STATUS FULL CODE Admission and Anticipated Discharge Date Admission Date: July 23, 2021 Subjective Pt was seen and examined for follow up of SOB due to PE Lying in bed with no distress Pt continues to have SOB and required oxygen supplement case discussed with son over the phone and provided with updates and answered all his questions. Denies any chest pain, palpitation, dizziness and SOB Review of Systems Review of Systems: All systems reviewed & are unremarkable except as noted in Subjective Physical Exam Physical Exam: General- No acute distress Head- atraumatic Eyes- PERRL, EOMI, ENT- oropharynx clear Neck- supple, no JVD Lungs- coarse BS Heart- regular rhythm; no murmur Abdomen- normal bowel sounds, soft, nontender Extremities- no calf tenderness Neuro- alert, oriented x 3; PERRL, EOMI; no facial palsy; no dysarthria Skin- +rash in chest, arms and upper back area. Results & Data Results & Data ([facility]) Vital Signs (Past 12 Hours) Vital Signs Temp Pulse Pulse Resp BP Pulse Ox 07/24/21 17:02 104 H 96 07/24/21 15:42 36.7 C 98 H 19 144/81 H 96 07/24/21 15:36 96 H 20 96 07/24/21 15:00 101 H 07/24/21 11:51 36.4 C L 95 H 18 152/82 H 97 07/24/21 10:47 99 H 18 97 07/24/21 08:39 85 20 96 07/24/21 07:02 36.4 C L 101 H 22 132/69 95 07/24/21 07:00 99 H
[2021-07-24] MEDS: INSULIN GLARGINE SOLOSTAR 100 UNITS/ML 3 ML PEN SC SCH (20:48)
[2021-07-25] MEDS: oxyCODONE HCL IR 5 MG TAB (IMMEDIATE RELEASE) PO PRN ×2 (00:10→20:29)
[2021-07-25] MEDS: ALBUTEROL HFA 8 GM INHALER INH PRN (00:21)
[2021-07-25] MEDS ORDERED: BENZONATATE 100 MG CAPSULE PO PRN (03:09)
[2021-07-25] MEDS ORDERED: XOPENEX/ATROVENT 1.25mg/0.5MG NEB COMBO NEB STA (03:10)
--- NOTE | 2021-07-25 03:11 | Communication Note ---
Date of Service: July 25, 2021 Made aware by RN of persistent hemoptysis symptoms with patient feeling more short of breath. O2 sats 92-96 on 7 L. AP Hypoxemic respiratory failure Hemoptysis, ongoing IV anticoagulation for pulmonary embolism, hx lung malignancy Baseline ABG Stat nebs, Solu-Medrol Hold IV heparin for now CBC now CT chest May benefit from Pulmonary consultation. Will relay to AM provider.
[2021-07-25] MEDS ORDERED: methylPREDNISolone 20 MG in SYRINGE 0 ML IV STA (03:31)
[2021-07-25] MEDS ORDERED: IPRATROPIUM BROMIDE NEB SOLN 0.02% 2.5 ML VIAL INH STA (03:31)
[2021-07-25] MEDS ORDERED: LEVALBUTEROL 1.25MG/0.5ML NEB INH STA (03:32)
[2021-07-25 03:42] LABS: Basophils # (auto) 0.02 K/uL (0-0.2); Basophils % (auto) 0.1 %; Eosinophils # (auto) 1.42 K/uL (0-0.5); Eosinophils % (auto) 9.7 %; Hematocrit (blood only) 29.3 % (37-47); Hemoglobin 9.6 g/dL (12.0-16.0); Immature Granulocytes # (auto) 0.06 K/uL (0.00-0.02); Immature Granulocytes % (auto) 0.4 %; Lymphocytes # (auto) 1.08 K/uL (1.2-3.4); Lymphocytes % (auto) 7.4 %; Mean Corpuscular Hemoglobin 31.1 pg (25-34); Mean Corpuscular Hgb Conc 32.8 g/dL (32-36); Mean Corpuscular Volume 94.8 fL (80-100); Mean Platelet Volume 10.4 fL (7.4-10.4); Monocytes # (auto) 1.05 K/uL (0.11-0.59); Monocytes % (auto) 7.1 %; Neutrophils # (auto) 11.06 K/uL (1.4-6.5); Neutrophils % (auto) 75.3 %; Platelet Count 177 K/uL (130-400); RDW Coefficient of Variation 13.7 % (11.5-14.5); RDW Standard Deviation 47.4 fL (36.4-46.3); Red Blood Count 3.09 M/uL (4.2-5.4); White Blood Count 14.69 K/uL (4.8-10.8)
[2021-07-25 04:02] LABS: Base Excess ABG 2.4 mEq/L (-9-1.8); HCO3 ABG 27 mmol/L (19-24); Oxygen Saturation ABG 93.6 % (90-95); PCO2 ABG 44 mmHg (35-46); PO2 ABG 71 mmHg (80-95); pH ABG 7.41 (7.35-7.45)
[2021-07-25 04:03] LABS: Allen Test Pos (Pos)
[2021-07-25 04:04] LABS: Calcium 8.2 mg/dl (8.5-10.1); Creatinine Clr Calc Pharmacy 71.2 ml/min; Est GFR (African American) 104.2 ml/min; Est GFR (Non-African American) 89.9 ml/min; Magnesium 2.1 mg/dl (1.8-2.4); Potassium 4.3 mmol/L (3.5-5.1)
[2021-07-25 04:15] LABS: Partial Thromboplastin Ratio 1.9
[2021-07-25 04:33] LABS: Partial Thromboplastin Time 51.2 Seconds (21.0-31.0)
--- NOTE | 2021-07-25 07:02 | CT Scan Report ---
CT OF THE CHEST WITHOUT IV CONTRAST CLINICAL HISTORY: hemoptysis COMPARISON STUDY: Chest CT July 23, 2021. CT DOSE: 240.94 mGy.cm TECHNIQUE: Axial images of the chest were obtained without IV contrast. Images were reviewed in the axial, sagittal, and coronal planes. IV contrast was not administered for this examination. Automat ed exposure control was utilized for the study. A dose lowering technique was utilized adhering to t he principles of ALARA. FINDINGS: Note is again made of a large infiltrative right mediastinal/right upper lobe mass which i s similar to CT of July 23, 2021. This is better depicted on prior contrast enhanced exam. Multi ple necrotic mediastinal lymph nodes are noted. Bilateral supraclavicular lymphadenopathy is similar to prior exam. Extensive right upper lobe airspace opacity has mildly progressed. There is occlusion of the right upper lobe bronchus, as before. Right middle lobe airspace opacity has progressed. There is subpleural left lower lobe opacity. Numerous pulmonary nodules are similar to prior exam and repr esent metastases. Vascular occlusion by the mediastinal mass/lymphadenopathy is not depicted on this unenhanced examination. A pathologic paraesophageal lymph node is similar to prior CT. The size of th e heart is normal. No pericardial effusion. There is a trace right pleural effusion. There is no pneu mothorax. No suspicious osseous lesions are identified within visualized portions of the bony thorax. Numerous hepatic metastases are again noted. These measure up to 3.9 cm. These have increased in siz e since CT of July 03, 2021. A 4.5 cm right adrenal metastasis has significantly increased in size since CT of July 23, 2021 when it measured 2.7 cm. Adjacent stranding is noted. The right adrena l lesion is hyperdense. IMPRESSION: 1. Redemonstration of the mediastinal/right suprahilar large infiltrative mass with occlusion of the right upper lobe bronchus. This mass and associated extensive mediastinal and supraclavicular lymphad enopathy are better depicted on contrast enhanced CT of July 23, 2021. 2. Increase in right upper lobe and right middle lobe airspace opacity which may reflect postobstruct javed pneumonia or pulmonary infarcts/hemorrhage. 3. Significant increase in size of a hyperdense 4.6 cm right adrenal metastasis since CT of July 23, 2021, with adjacent stranding. The findings suggest right adrenal hemorrhage related to a metast asis. This finding will be called/faxed to the ordering provider at time of dictation. A short-term f ollow-up CT of the abdomen in 24 hours is recommended. 4. No significant change in hepatic and pulmonary metastases. ACT 112: Negative or not required by law. Electronically signed by: Kerwin David M.D. 07/25/2021 7:00 AM
[2021-07-25] MEDS: ALBUT/IPRATROP 3MG/0.5MG NEB 3 ML VIAL NEB SCH ×4 (07:07→19:36)
[2021-07-25] MEDS ORDERED: CYANOCOBALAMIN 1000 MCG/ML VIAL IM ONE (08:21)
[2021-07-25] MEDS: AMOXICILLIN/CLAVULANATE 875 MG TAB PO SCH ×2 (08:48→19:20)
[2021-07-25] MEDS: INSULIN ASPART 100 UNITS/ML 3 ML PEN SC SCH ×4 (08:50→20:24)
--- NOTE | 2021-07-25 11:57 | Radiation OncologyConsultation ---
Date of Consultation July 25, 2021 Assessment & Plan (1) 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: Assessment: Ms. 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 The patient does also have locally advanced disease involving the mediastinum and lung. The patient is having symptoms including hemoptysis, shortness of breath, cough and minimal increased edema involving the right upper extremity. The patient's most recent imaging studies do show mass- effect involving the right lung as well as SVC without total occlusion. The patient has been seen by Dr. Kent for radiation oncology at [facility] and the plan was for the patient to undergo single fraction stereotactic radiosurgery for the brain metastasis which was scheduled for later this week. The patient was also scheduled to start Alimta, carboplatin, Keytruda underneath the supervision of Dr. Surjit Medrano. I am now seeing the patient in consultation to discuss the role of radiation therapy. Recommendations: 1. Local lung disease (SVC compression/hemoptysis/SOB) - I have spoken with Dr. Medrano from medical oncology. We are in agreement to consider the patient for palliative external beam radiation therapy to the chest to prevent further progression of disease locally and potentially alleviate some of the patient's symptoms including hemoptysis and shortness of breath. 2. Metastatic disease to brain - we will initiate palliative external beam radiation therapy to the chest. After the patient has started treatment, I will reach out to the radiation oncology team at [facility] to determine the best next step of care for the patient regarding treatment to the brain. The patient may opt to continue treatment [facility] or alternatively we could offer her local therapy if that is in her best interest. Plan: 1. CT simulation for treatment planning for radiation therapy. Patient will be brought down tomorrow. Plan to start radiation therapy on . 2. Continue all other care as per primary medical team. 3. Follow-up with medical oncology in the outpatient setting. 4. Communicate with radiation oncology team at [facility] regarding treatment for brain metastasis. 5. Patient and family encouraged to call us with any further questions or concerns. Rationale/Explanation of Treatment: I have explained the indications, alternatives, benefits, risks and side effects of radiation therapy. I have explained the most common side effects which include but are not limited to skin erythema, skin break down, pulmonary fibrosis, adhesion development, radiation pneumonitis, spinal cord damage, brachial plexus damage, rib fracture, heart failure and heart disease, esophagitis, development of fistula, fatigue and development of secondary malignancy. I have explained the CT simulation process and treatment planning. I explained what to expect before, during and after treatment on a regular basis. The patient understands and would be willing to consent to treatment. The patient had multiple questions which were answered to her full satisfaction. Thank you for allowing us to participate in the care of this patient. This chart was completed in part utilizing [employer] in [employer] Voice Recognition software. Attempts were made to minimize the grammatical errors, random word insertions, pronoun errors and incomplete sentences. Any formal questions or concerns about the content, text or information contained within the body of this dictation should be directly addressed to the provider for clarification. Victorina Medrano MD Department of Radiation Oncology Formerly [facility] History of Present Illness Attending Physician: Alysia Najera MD History of Present Illness 07/03/2021. Patient presents to emergency room. Transferred to [facility] for tertiary level care on 07/05/2021.. 07/03/2021. Chest CTA. IMPRESSION: 1. No pulmonary emboli identified although right upper lobe pulmonary artery occluded by adenopathy. 2. Occlusion of the right upper lobe bronchus by the right upper lobe mass or pathologic lymph node. Extensive right hilar, mediastinal, bilateral supraclavicular and lower cervical lymphadenopathy. This is consistent with neoplastic process and favors bronchogenic carcinoma. Postobstructive right upper lobe pneumonia. Pulmonary consultation is recommended. 3. Numerous pulmonary and hepatic metastases. 4. Vascular narrowing and occlusion by mediastinal lymphadenopathy, as described above. 07/03/2021. CT of head. Impression: There are 3 separate areas of vasogenic edema within the brain with the largest in the left high convexity containing a 1.3 cm lesion. Therefore, the other areas of vasogenic edema also likely contain occult lesions. These findings are highly suspicious for metastatic disease. 07/03/2021. MRI brain. IMPRESSION:1. An 11 mm focus of restricted diffusion involving the superior left cerebellar hemisphere is suggestive of an acute or subacute infarct with a moderate sized adjacent developmental venous anomaly. 2. A 3 mm focus of restricted diffusion involving the right parietal cortex favors artifact. An acute or subacute infarct is considered less likely. 3. There are at least six peripherally enhancing intra-axial lesions measuring up to 1.6 cm within the left frontal lobe near the vertex. This largest lesion demonstrates a considerable amount of surrounding vasogenic edema. No associated midline shift or hydrocephalus. These findings are suggestive of metastatic disease. 07/05/2021. Liver mass, right, core needle biopsy. Non-small cell carcinoma, favor lung adenocarcinoma. Low PD-L1 expression at 40%. 07/07/2021. Radiation oncology follow-up with Dr. Kent in the hospital. Recommendation is for consideration of stereotactic radiosurgery to completed at [facility] using [employer]. 07/10/2021. MRI of Brain. IMPRESSION: 1. Scattered brain parenchymal enhancing lesions. 12 x 9 x 14 mm left superior frontal lobe lesion has decreased in size compared with 07/03/2021 (16 x 14 x 17 mm). Subcentimeter right superior and anterior frontal lobe and left inferior and medial frontal lobe, stable. 2. Right frontal and parietal lobe punctate enhancing foci, better characterized on current study. Right cerebellar vermis punctate enhancing focus, better characterized on 07/03/2021 brain MR. 3. Left cerebellar hemisphere developmental venous anomaly. 4. Scattered cerebral white matter T2/FLAIR hyperintense and nonenhancing foci, nonspecific but compatible with chronic microvascular ischemic changes, and which are normal in number for stated age. 5. Mild chronic brain parenchymal volume loss. 07/18/2021. Medical oncology consultation with Dr. Surjit Medrano. Recommendation is for systemic chemotherapy with Alimta, carboplatin and Keytruda. Stereotactic radiation surgery as previously planned by Dr. Guerra and Dr. Kent. 07/23/2021. Patient presents to emergency room with shortness of breath. Patient admitted to hospital for further treatment and evaluation. 07/23/2021. Chest CTA. IMPRESSION: 1. Bilateral pulmonary emboli. 2. Interval progression of the mediastinal/right hilar large infiltrative mass with progressive moderate to severe narrowing of the superior vena cava. However, no evidence for SVC obstruction at this time. 3. Interval progression of the metastatic disease as described above. 4. Progressive groundglass airspace opacities within the right lung. This could be due to a postobstructive pneumonitis or superimposed pulmonary infarcts. 07/25/2021. Chest CT without contrast. IMPRESSION: 1. Redemonstration of the mediastinal/right suprahilar large infiltrative mass with occlusion of the right upper lobe bronchus. This mass and associated extensive mediastinal and supraclavicular lymphadenopathy are better depicted on contrast enhanced CT of July 23, 2021. 2. Increase in right upper lobe and right middle lobe airspace opacity which may reflect postobstructive pneumonia or pulmonary infarcts/hemorrhage. 3. Significant increase in size of a hyperdense 4.6 cm right adrenal metastasis since CT of July 23, 2021, with adjacent stranding. The findings suggest right adrenal hemorrhage related to a metastasis. This finding will be called/faxed to the ordering provider at time of dictation. A short-term follow-up CT of the abdomen in 24 hours is recommended. 4. No significant change in hepatic and pulmonary metastases. Allergies Allergy/AdvReac Type Severity Reaction Status Date / Time bee venom protein (honey bee) Allergy Severe Anaphylaxis Unverified 07/23/21 09:40 acetaminophen Allergy Unknown vomiting Verified 07/23/21 09:40 Home Medications Medication Instructions Recorded Confirmed Type epinephrine 0.3 mg/0.3 mL 0.3 mg IM Q4H #0 12/01/15 07/23/21 History injection, auto-injector ibuprofen 200 mg tablet 400 mg PO Q6H PRN 07/03/21 07/23/21 History albuterol sulfate 90 mcg/actuation 2 inh INHALATION QID 07/23/21 07/23/21 History aerosol inhaler Patient History Medical History (Updated 07/25/21 @ 11:55 by Victorina Medrano MD) 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 Brain metastases Lung mass Metastatic disease Surgical History History of History of carpal tunnel surgery Family History Father Lung cancer Social History Smoking Status: Current every day smoker Tobacco Type: Cigarettes Cigarettes Per Day: 10; Hx Alcohol Use: Yes Alcohol type: beer Alcohol Intake Frequency: 2-4 x/Month Hx Substance Use: Yes Last Used Substance: Days (ago) Preferred Language: Urdu Communication Ability: Effective 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 Physical Exam Constitutional: WD/WN, vitals as above Mild respiratory distress. ENMT: Palpable bilateral supraclavicular lymph nodes. No facial edema noted. Neck: No neck edema noted. Musculoskeletal: Minimal enlargement of right arm in comparison to left arm. Minimal nonpitting edema noted. Psychiatric: A+Ox3, euthymic affect Time Spent Attending I spent 15 minutes in preparation for this consultation including reviewing all the clinical records, reviewing laboratory studies, pathology reports and imaging results. I spent 30 minutes with direct face to face interaction with the patient and/or family including performing a physical exam and answering all questions. I spent 30 minutes documenting this patient's visit. I spent 5 minutes speaking with the following providers regarding this patient's care: Dr. Surjit Medrano.
[2021-07-25] MEDS ORDERED: Heparin IV Adult Wt-Based Low-Dose *NO* Bolus Protocol IV SCH (12:45)
--- NOTE | 2021-07-25 13:56 | Pulmonary Consultation ---
Date of Consultation July 25, 2021 Assessment & Plan (1) Hemoptysis: Attending: Dr. 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 She has not begun chemotherapy at this point. She has not seen radiation oncology. She has a recent history of hemoptysis. She was recently diagnosed with bilateral pulmonary emboli with probable pulmonary infarcts. Anticoagulation has been held secondary to the hemoptysis. Patient has a past medical history of tobacco abuse and no other pulmonary history or significant past medical history other than carpal tunnel syndrome. She is admitted for shortness of breath and hemoptysis most likely related to her recently diagnosed adenocarcinoma. Recommendations: 1. Adenocarcinoma of the lung with metastasis to the brain and liver: * Is a new diagnosis and patient has not begun treatment * Would recommend urgent radiation oncology consult for possible radiation to the lung regarding hemoptysis * Would also recommend contacting Dr. Surjit Medrano at [facility] for review of possible chemotherapy while inpatient * Continue supportive care for oxygen desaturation * Monitor closely for further hemoptysis 2. Bilateral pulmonary emboli: * Identified on CTA of the chest 07/20/2021 * Echocardiogram shows right ventricular strain * Patient with increased oxygen requirements and discomfort * Anticoagulation has been held due to hemoptysis. Would recommend starting heparin low-dose infusion with no bolus * Monitor H&H as well as oxygenation status and hemoptysis * If patient has any altered mental status, hold heparin and order stat CT of the head * Patient increased risk for hypercoagulable state secondary to malignancy * If patient tolerates heparin, consider discharge on Eliquis 3. Tobacco abuse: * Patient with lifelong adult history of tobacco abuse * She reports that she quit smoking last month when she got her diagnosis of metastatic disease * She denies need for nicotine patch at this time * Continue to encourage complete tobacco abstinence 4. DVT prophylaxis: * Recommend YANELI hose and SCDs knee-high as tolerated * Continue anticoagulation with heparin drip if patient tolerates. Thank you for including us in the care of this patient. We will continue to follow throughout this hospital stay. (2) Bilateral pulmonary embolism: (3) 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: (4) Lung mass: (5) DVT prophylaxis: Supervising Physician Co-Signing Physician Notes Patient seen and examined with the JOHN. Agree with his assessment and plan aside for additions/exceptions noted: Right upper lobe findings concerning for airway impingement due to tumor involvement. She is at risk for SVC syndrome. I consulted radiation oncology for palliative radiation therapy to the right upper lobe and for concern of impending SVC syndrome. Radiation oncology has evaluated the patient. Appreciate their input. Can likely transition Solu- Medrol to prednisone in the next 1 to 2 days. Agree with broad-spectrum antibiotics for postobstructive pneumonia. No indication for bronchoscopy at this time. Bilateral pulmonary emboli noted likely due to hypercoagulable state from diffuse malignancy. Tumor emboli are difficult to rule out. Agree with anticoagulation despite hemoptysis. Keep a close eye on her hemoglobin and respiratory status. Palliative care consultation would be very appropriate in this patient given the severity of her metastatic disease. History of Present Illness Reason for Consultation: Hemoptysis Attending Physician: Alysia Najera MD History of Present Illness Attending: Dr. Ponce This is a 55-year-old female with recent diagnosis of adenocarcinoma of the lung with metastasis to the liver. She presents with bilateral pulmonary emboli from 07/20/2021. She presented emergency department for increased shortness of breath. She presented to [facility] last month for right posterior shoulder pain and was found to have a right upper lobe lung mass. She was transferred to [facility] where a biopsy was performed which showed adenocarcinoma with metastasis to the liver and the brain. She is following with Dr. Surjit Medrano from [facility] oncology. She was to present to him this week for initiation of chemotherapy but was admitted. She does report some hemoptysis. This is improved since her admission. She was not on any anticoagulants or antiplatelet agents at home. She was initiated on heparin drip on admission. This is been held for hemoptysis. She is a lifelong smoker but reportedly quit smoking after her diagnosis last month. She has no prior history of pulmonary disease and currently is only on an albuterol inhaler and nebulizer for symptomatic relief at home. She denies any history of pulmonary function testing or other pulmonary visits. Patient currently is on supplemental oxygen at 3 L/min and is saturating in the mid 90s. She denies any specific chest pain, she has no fever, she reports that the hemoptysis is improving. She does continue to have complaints of shortness of breath. She has no significant cough or sputum production. Patient has no significant past medical history report other than tobacco abuse and acarpal tunnel syndrome. Allergies Allergy/AdvReac Type Severity Reaction Status Date / Time bee venom protein (honey bee) Allergy Severe Anaphylaxis Unverified 07/23/21 09:40 acetaminophen Allergy Unknown vomiting Verified 07/23/21 09:40 Home Medications Medication Instructions Recorded Confirmed Type epinephrine 0.3 mg/0.3 mL 0.3 mg IM Q4H #0 12/01/15 07/23/21 History injection, auto-injector ibuprofen 200 mg tablet 400 mg PO Q6H PRN 07/03/21 07/23/21 History albuterol sulfate 90 mcg/actuation 2 inh INHALATION QID 07/23/21 07/23/21 History aerosol inhaler Patient History Medical History 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 Brain metastases Lung mass Metastatic disease Tobacco abuse Quit smoking June 2021 Surgical History History of History of carpal tunnel surgery Family History Father Lung cancer Social History Smoking Status: Current every day smoker Tobacco Type: Cigarettes Cigarettes Per Day: 10; Hx Alcohol Use: Yes Alcohol type: beer Alcohol Intake Frequency: 2-4 x/Month Hx Substance Use: Yes Last Used Substance: Days (ago) Preferred Language: Faroese Communication Ability: Effective Attendant [employer] Required: No Beliefs That Will Affect Care: None Current Living Situation: Family Other Information That Helps Us Care for You: No Feels Safe at Home: Yes Safety Concerns: Feels Safe At This Time Assistive Devices: Oxygen - Continuous Review of Systems Review of Systems: A total of 12 systems was reviewed and is negative other than as listed above in the HPI Physical Exam Physical Exam: GENERAL : No acute distress. Patient appears ill. No use of accessory muscles for breathing. No evidence of rashes or lesions. EYES: No icterus, gaze conjugate. Pupils equal round and reactive to light. NOSE: No evidence of epistaxis. Nasal cannula in place MOUTH: No lesions or candidiasis. Tongue is midline. Mucosa moist NECK: Supple LUNGS: Some rales at the bases. Slight rhonchi in the right upper lobe field and posterior HEART: Regular, rate in the 90s ABDOMEN: Soft, NT, ND, BS Present EXTREMITIES: No LE edema, pedal pulses intact NEURO: A&OX3 Results & Data Results & Data ([facility]) Vital Signs (Past 12 Hours) Vital Signs Temp Pulse Pulse Resp BP Pulse Ox 07/25/21 11:00 36.7 C 105 H 20 123/75 98 07/25/21 10:53 103 H 16 97 07/25/21 07:46 104 H 07/25/21 07:10 36.6 C 109 H 20 151/58 H 92 07/25/21 07:07 106 H 28 H 91 07/25/21 03:38 20 93 07/25/21 03:25 36.8 C 101 H 20 126/78 93 Diagnostic Findings Chest X-Ray 07/23/21 08:18 XR chest 1V portable HISTORY: 55 years-old Female sob acute shortness of breath COMPARISON: CTA chest 07/03/2021 TECHNIQUE: Portable AP view of the chest FINDINGS: Right upper lobe mass redemonstrated with ill-defined margins. Progressively worsened right perihilar and right midlung consolidation. No pneumothorax or large pleural effusion. Mild left hemidiaphragm elevation with mild left lung base atelectasis. Numerous bilateral solid nodules are better seen on comparison. Degenerative changes of the shoulders and spine. IMPRESSION: 1. Right upper lobe mass redemonstrated with progressive consolidation of the right lung suggestive of postobstructive pneumonitis changes. 2. Numerous pulmonary metastasis are better seen on comparison CTA of the chest. ACT 112: Negative or not required by law. The above report was generated using voice recognition software. It may contain grammatical, syntax or spelling errors. Electronically signed by: Fidencio Ross M.D. 07/23/2021 9:11 AM Chest CTA 07/23/21 08:19 CHEST CTA for PULMONARY ARTERIES CT DOSE: 267.50 mGy.cm HISTORY: Shortness of breath. Lung cancer. Hemoptysis. Right shoulder pain. TECHNIQUE: Multiaxial CT images of the chest were performed following the intravenous administration of contrast to evaluate the pulmonary arteries. Maxi mal intensity projection images were also obtained. A dose lowering technique was utilized adhering to the principles of ALARA. COMPARISON STUDY: Chest CT 07/03/2021. FINDINGS: Limited views the upper abdomen demonstrate multiple hepatic metastases and right adrenal gland thickening suggestive of an adrenal metastasis. There is mild gastrohepatic lymphadenopathy. A distal paraesophageal lymph node has increased in size. Significant progression of the infiltrative mediastinal mass which extend into the right hilum and medial aspect of the right middle and upper lobes. There is progressive mediastinal and right hilar lymphadenopathy. There is moderate to severe narrowing of the superior vena cava which has progressed. No evidence for occlusion at this time. Multiple bilateral pulmonary emboli including an embolus within the distal left main pulmonary artery extending into the majority of the segmental pulmonary arteries. No pneumothorax. Mild narrowing of the right upper lobe bronchus with occlusion involving the anterior segmental bronchus the right upper lobe. This is similar to the prior study. Scattered bilateral pulmonary nodules consistent with metastatic disease are again noted. These have slightly increased in size in the interval. Dominant nodule within the right lower lobe measures 11 mm. Mild emphysema. Scattered groundglass airspace opacities within the right lung have slightly progressed. Left basilar densities favor subsegmental atelectasis. This is also progressed. The heart is normal in size. Normal caliber thoracic aorta with no evidence for dissection. No pleural or pericardial effusions. Persistent narrowing of the right superior pulmonary vein. No fractures within the visualized osseous structures. The supraclavicular lymphadenopathy has also slightly progressed. High-grade stenosis of the right upper lobe pulmonary artery with near occlusion is again noted. Right upper lobe cavitary mass has also increased in size. IMPRESSION: 1. Bilateral pulmonary emboli. 2. Interval progression of the mediastinal/right hilar large infiltrative mass with progressive moderate to severe narrowing of the superior vena cava. However, no evidence for SVC obstruction at this time. 3. Interval progression of the metastatic disease as described above. 4. Progressive groundglass airspace opacities within the right lung. This could be due to a postobstructive pneumonitis or superimposed pulmonary infarcts. ACT 112: Negative or not required by law. Electronically signed by: Clinton Arredondo M.D. 07/23/2021 10:[address] 07/25/21 03:10 CT OF THE CHEST WITHOUT IV CONTRAST CLINICAL HISTORY: hemoptysis COMPARISON STUDY: Chest CT July 23, 2021. CT DOSE: 240.94 mGy.cm TECHNIQUE: Axial images of the chest were obtained without IV contrast. Images were reviewed in the axial, sagittal, and coronal planes. IV contrast was not administered for this examination. Automated exposure control was utilized for the study. A dose lowering technique was utilized adhering to the principles of ALARA. FINDINGS: Note is again made of a large infiltrative right mediastinal/right upper lobe mass which is similar to CT of July 23, 2021. This is better depicted on prior contrast enhanced exam. Multiple necrotic mediastinal lymph nodes are noted. Bilateral supraclavicular lymphadenopathy is similar to prior exam. Extensive right upper lobe airspace opacity has mildly progressed. There is occlusion of the right upper lobe bronchus, as before. Right middle lobe airspace opacity has progressed. There is subpleural left lower lobe opacity. Numerous pulmonary nodules are similar to prior exam and represent metastases. Vascular occlusion by the mediastinal mass/lymphadenopathy is not depicted on this unenhanced examination. A pathologic paraesophageal lymph node is similar to prior CT. The size of the heart is normal. No pericardial effusion. There is a trace right pleural effusion. There is no pneumothorax. No suspicious osseous lesions are identified within visualized portions of the bony thorax. Numerous hepatic metastases are again noted. These measure up to 3.9 cm. These have in creased in size since CT of July 03, 2021. A 4.5 cm right adrenal metastasis has significantly increased in size since CT of July 23, 2021 when it measured 2.7 cm. Adjacent stranding is noted. The right adrenal lesion is hyperdense. IMPRESSION: 1. Redemonstration of the mediastinal/right suprahilar large infiltrative mass with occlusion of the right upper lobe bronchus. This mass and associated extensive mediastinal and supraclavicular lymphadenopathy are better depicted on contrast enhanced CT of July 23, 2021. 2. Increase in right upper lobe and right middle lobe airspace opacity which may reflect postobstructive pneumonia or pulmonary infarcts/hemorrhage. 3. Significant increase in size of a hyperdense 4.6 cm right adrenal metastasis since CT of July 23, 2021, with adjacent stranding. The findings suggest right adrenal hemorrhage related to a metastasis. This finding will be called/faxed to the ordering provider at time of dictation. A short-term follow-up CT of the abdomen in 24 hours is recommended. 4. No significant change in hepatic and pulmonary metastases. ACT 112: Negative or not required by law. Electronically signed by: Kerwin David M.D. 07/25/2021 7:00 AM PG Care Time/CCT Total # of Minutes Spent Total Time Spent with Patient: Total time spent is greater than 50% in coordination of care (as documented) at patient's floor/unit and/or counseling patient: Coding Level of Care Code 50446 Inpt Consult Level 5 Diagnoses Hemoptysis R04.2 Bilateral pulmonary embolism I26.99 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 C34.90; C78.7 Lung mass R91.8 DVT prophylaxis Z29.9 Time Spent (min) 65
[2021-07-25] MEDS: methylPREDNISolone 40 MG in SYRINGE 0 ML IV SCH ×2 (14:00→20:24)
[2021-07-25] MEDS: HEPARIN SODIUM/DEXTROSE 25,000 UNITS/500 ML BAG IV SCH (14:37)
--- NOTE | 2021-07-25 19:13 | Hospitalist Progress Note ---
Date of Service July 25, 2021 Assessment & Plan (1) Bilateral pulmonary embolism: (2) Shortness of breath: Plan: Present on admission with worsening SOB with minimal exertion Risk factors: Adenocarcinoma of the Lung with Met to liver and brain CTA chest showed bilateral pulmonary emboli. Interval progression of the mediastinal/right hilar large infiltrative mass with progressive moderate to severe narrowing of the superior vena cava. Progressive groundglass airspace opacities within the right lung. This could be due to a postobstructive pneumonitis or superimposed pulmonary infarcts. Continue heparin drip since pt has been having hemoptysis Echo showed no RV strain case discussed with Oncology Dr. Medrano and agreed with the IV heparin then consider to transition to Eliquis on discharge Continue monitor H/H due to ongoing hepmotysis Heparin drip was discontinued due to increase hemoptysis Pulmonology was consulted Case discussed with pulmonology team that recommend to resume heparin drip, will start low-dose heparin drip Pt increased risk for hypercoagulable state secondary to malignancy If patient tolerates heparin, consider discharge on Eliquis IV Solu-Medrol 40 mg every q8h was started (3) Brain metastases: (4) Metastatic disease: (5) Lung mass: Plan: recently diagnosed few months ago with biopsy showed adenocarcinoma CT chest showed Interval progression of the mediastinal/right hilar large infiltrative mass with progressive moderate to severe narrowing of the superior vena cava. However, no evidence for SVC obstruction at this time. She had an appointment with Oncology today to discuss about treatment option Dr. Medrano was informed about the patient is admitting in the hospital Dr. Medrano said that he would review her chart Radiation oncology consulted Case discussed with radiation oncology Plan to start radiation during this admission (6) Hyperglycemia: Plan: Newly diagnosed DM Possible related to diabetes (Possible worsening due to recent steroid therapy )\ Hba1c 8.7 today On lantus and insulin sliding scale while in the hospital Will consider to start on metformin on Discharge Continue monitor BS (7) Elevated troponin: Plan: Mostly related to PE Troponin on admission 0.102, then trending down to 0.08 Denies any chest pain EKG showed no acute ischemic changes Pt was started on heparin drip due to evidence of PE on CTA chest ECHO showed no LV wall motion abnormality and no RV strain noted Clinically stable Questionable Pneumonitis CTA chest showed progressive groundglass airspace opacities within the right lung. Will start on Augmentin BID Incentive spirometry and pulm toilet Rash Etiology unknown Will continue Benadryl prn Consider to add topical steroid if no improvement DVT px on Heparin drip CODE STATUS FULL CODE Admission and Anticipated Discharge Date Admission Date: July 23, 2021 Subjective Patient was seen and examined for follow-up of shortness of breath/PE Lying in bed with mild acute respiratory distress Patient said last night her breathing got worse were she required 7 L of oxygen She said now she is feeling a little bit better She said she was having more hemoptysis and heparin drip was placed on hold Denies any chest pain, palpitation, fever and diarrhea Review of Systems Review of Systems: All systems reviewed & are unremarkable except as noted in Subjective Physical Exam Physical Exam: General- No acute distress Head- atraumatic Eyes- PERRL, EOMI, ENT- oropharynx clear Neck- supple, no JVD Lungs- coarse BS Heart- regular rhythm; no murmur Abdomen- normal bowel sounds, soft, nontender Extremities- no calf tenderness Neuro- alert, oriented x 3; PERRL, EOMI; no facial palsy; no dysarthria Skin- +rash in chest, arms and upper back area. Results & Data Results & Data ([facility]) Vital Signs (Past 12 Hours) Vital Signs Temp Pulse Pulse Resp BP Pulse Ox 07/25/21 16:09 106 H 07/25/21 15:38 36.5 C 111 H 20 138/83 93 07/25/21 15:13 72 18 94 07/25/21 11:00 36.7 C 105 H 20 123/75 98 07/25/21 10:53 103 H 16 97 07/25/21 07:46 104 H
[2021-07-25] MEDS: INSULIN GLARGINE SOLOSTAR 100 UNITS/ML 3 ML PEN SC SCH (20:24)
[2021-07-25 21:38] LABS: Partial Thromboplastin Ratio 1.2; Partial Thromboplastin Time 32.8 Seconds (21.0-31.0)
[2021-07-25] MEDS ORDERED: HEPARIN IV BOLUS 2,000 UNITS in SYRINGE 0 ML IV ONE (22:15)
[2021-07-26] MEDS: methylPREDNISolone 40 MG in SYRINGE 0 ML IV SCH ×2 (04:53→13:51)
[2021-07-26 06:28] LABS: Partial Thromboplastin Ratio 1.5; Partial Thromboplastin Time 40.4 Seconds (21.0-31.0)
[2021-07-26] MEDS: ALBUT/IPRATROP 3MG/0.5MG NEB 3 ML VIAL NEB SCH ×4 (07:10→19:43)
[2021-07-26] MEDS: AMOXICILLIN/CLAVULANATE 875 MG TAB PO SCH ×2 (08:24→17:50)
[2021-07-26] MEDS: INSULIN ASPART 100 UNITS/ML 3 ML PEN SC SCH ×4 (08:29→21:45)
[2021-07-26 09:46] LABS: Hematocrit (blood only) 27.9 % (37-47); Hemoglobin 9.1 g/dL (12.0-16.0); Mean Corpuscular Hemoglobin 31.3 pg (25-34); Mean Corpuscular Hgb Conc 32.6 g/dL (32-36); Mean Corpuscular Volume 95.9 fL (80-100); Mean Platelet Volume 10.9 fL (7.4-10.4); Nucleated RBC # (auto) 0.02 K/uL (0-0); Nucleated RBC % (auto) 0.2 %; Platelet Count 195 K/uL (130-400); RDW Coefficient of Variation 14.4 % (11.5-14.5); RDW Standard Deviation 49.5 fL (36.4-46.3); Red Blood Count 2.91 M/uL (4.2-5.4); White Blood Count 13.54 K/uL (4.8-10.8)
[2021-07-26 10:08] LABS: BUN Creatinine Ratio 17.8 (10-20); Calcium 8.7 mg/dl (8.5-10.1); Creatinine Clr Calc Pharmacy 70.1 ml/min; Est GFR (African American) 102.6 ml/min; Est GFR (Non-African American) 88.5 ml/min; Potassium 4.4 mmol/L (3.5-5.1)
[2021-07-26 13:22] LABS: Partial Thromboplastin Ratio 1.4; Partial Thromboplastin Time 35.6 Seconds (21.0-31.0)
[2021-07-26] MEDS ORDERED: HEPARIN SOD (PORCINE) 1000 UNIT/ML IV ONE (15:45)
--- NOTE | 2021-07-26 16:08 | Pulmonology Progress Note ---
Date of Service July 26, 2021 Assessment & Plan (1) Hemoptysis: Plan: Attending: Dr. 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 She has not begun chemotherapy at this point. She has not seen radiation oncology. She has a recent history of hemoptysis. She was recently diagnosed with bilateral pulmonary emboli with probable pulmonary infarcts. Anticoagulation has been held secondary to the hemoptysis. Patient has a past medical history of tobacco abuse and no other pulmonary history or significant past medical history other than carpal tunnel syndrome. She is admitted for shortness of breath and hemoptysis most likely related to her recently diagnosed adenocarcinoma. Recommendations: 1. Adenocarcinoma of the lung with metastasis to the brain and liver: * Is a new diagnosis and patient has not begun treatment * Dr. Victorina Medrano from radiation oncology has seen the patient and she has been mapped and marked. It is anticipated that she will begin radiation of the chest tomorrow * Dr. Medrano will also initiate whole brain radiation for the metastasis of her lung cancer to the brain * Is recommended that the patient receive palliative radiation and chemotherapy Per notes and discussion with Dr. Surjit Medrano from [facility] oncology will be the patient's primary oncologist * Recommend palliative consult * Continue supportive care * Further management per oncology and radiation oncology * Can begin to titrate IV steroids. Will change to 30 mg twice daily today and then half dose every other day. 2. Bilateral pulmonary emboli: * Identified on CTA of the chest 07/20/2021 * Echocardiogram shows right ventricular strain * Patient with increased oxygen requirements and discomfort * Heparin low-dose infusion started yesterday with no bolus. Continue per weight-based protocol * Monitor H&H as well as oxygenation status and hemoptysis * If patient has any altered mental status, hold heparin and order stat CT of the head * Patient increased risk for hypercoagulable state secondary to malignancy * If patient tolerates heparin, consider discharge on Eliquis 3. Tobacco abuse: * Patient with lifelong adult history of tobacco abuse * She reports that she quit smoking last month when she got her diagnosis of metastatic disease * She denies need for nicotine patch at this time * Continue to encourage complete tobacco abstinence 4. DVT prophylaxis: * Recommend YANELI hose and SCDs knee-high as tolerated * Continue anticoagulation with heparin drip if patient tolerates. Thank you for including us in the care of this patient. At this time, there is no plan for bronchoscopy to examine the airways for hemoptysis. Continue supportive care. Pulmonary will sign off at this time. Please feel free to reconsult with any needs. (2) Bilateral pulmonary embolism: (3) 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: (4) Lung mass: (5) DVT prophylaxis: Admission and Anticipated Discharge Date Admission Date: July 23, 2021 Subjective Attending: Dr. Ponce Patient seen and examined at bedside. She is in bedside chair. She has had 2 episodes of hemoptysis with much less bloody sputum than previous days. It should be noted the patient was started on heparin drip with low-dose protocol and no bolus yesterday for bilateral pulmonary emboli. Educated on signs and symptoms of worsening bleeding including increased frequency or volume of hemoptysis, headache, blurred vision, double vision, other visual disturbances, loss of balance, loss of dexterity, dropping things, imbalance. She was educated to contact her nurse immediately if any of these symptoms or other concerning symptoms arose so that heparin drip could be stopped. Patient denies any fever, chills, sweats, rigors. As mentioned above sputum production is much decreased. No pleuritic pain. Patient describes no back pain. Breathing is much better and she feels as though she can take a much deeper breath today. She has no other acute complaints. Review of Systems Review of Systems: All systems reviewed & are unremarkable except as noted in Subjective Physical Exam Physical Exam: GENERAL : No acute distress. Sitting in bedside chair EYES: No icterus, gaze conjugate NOSE: No evidence of epistaxis. Nasal cannula in place MOUTH: No lesions or candidiasis. No bleeding of the gingiva NECK: Supple LUNGS: Patient continues with some rhonchi but much improved from yesterday HEART: Regular, rate controlled in the 90s ABDOMEN: Soft, NT, ND, BS Present EXTREMITIES: No LE edema, pedal pulses intact and equal bilaterally NEURO: A&OX3 Results & Data Results & Data ([facility]) Vital Signs (Past 12 Hours) Vital Signs Temp Pulse Pulse Resp BP BP Pulse Ox 07/26/21 15:22 110 H 24 96 07/26/21 11:10 106 H 18 93 07/26/21 11:00 36.8 C 105 H 20 122/70 97 07/26/21 07:16 104 H 07/26/21 07:10 101 H 20 97 07/26/21 06:46 36.6 C 102 H 20 127/77 98 07/26/21 04:16 112 H Laboratory Results 07/26/21 06:05 07/26/21 06:05 Diagnostic Findings No further diagnostic imaging PG Care Time/CCT Total # of Minutes Spent Total Time Spent with Patient: Total time spent is greater than 50% in coordinat ion of care (as documented) at patient's floor/unit and/or counseling patient: Coding Level of Care Code 40379 Subseq Hosp Care Lvl 3 Diagnoses Hemoptysis R04.2 Bilateral pulmonary embolism I26.99 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 C34.90; C78.7 Lung mass R91.8 DVT prophylaxis Z29.9 Time Spent (min) 30
--- NOTE | 2021-07-26 16:42 | Hospitalist Progress Note ---
Date of Service July 26, 2021 Assessment & Plan (1) Bilateral pulmonary embolism: (2) Shortness of breath: Plan: Present on admission with worsening SOB with minimal exertion Risk factors: Adenocarcinoma of the Lung with Met to liver and brain CTA chest showed bilateral pulmonary emboli. Interval progression of the mediastinal/right hilar large infiltrative mass with progressive moderate to severe narrowing of the superior vena cava. Progressive groundglass airspace opacities within the right lung. This could be due to a postobstructive pneumonitis or superimposed pulmonary infarcts. Continue heparin drip since pt has been having hemoptysis Echo showed no RV strain case discussed with Oncology Dr. Medrano and agreed with the IV heparin then consider to transition to Eliquis on discharge Continue monitor H/H due to ongoing hepmotysis Heparin drip was discontinued due to increase hemoptysis Pulmonology was consulted Case discussed with pulmonology team that recommend to resume heparin drip, will start low-dose heparin drip Continue low-dose heparin drip Pt increased risk for hypercoagulable state secondary to malignancy If patient tolerates heparin, consider discharge on Eliquis Will titrate solumedrol to 30 mg twice daily today and then half dose every other day. (3) Brain metastases: (4) Metastatic disease: (5) Lung mass: Plan: recently diagnosed few months ago with biopsy showed adenocarcinoma CT chest showed Interval progression of the mediastinal/right hilar large infiltrative mass with progressive moderate to severe narrowing of the superior vena cava. However, no evidence for SVC obstruction at this time. She had an appointment with Oncology today to discuss about treatment option Dr. Medrano was informed about the patient is admitting in the hospital Dr. Medrano said that he would review her chart Radiation oncology consulted Case discussed with radiation oncology Plan to start radiation during this admission (6) Hyperglycemia: Plan: Newly diagnosed DM Possible related to diabetes (Possible worsening due to recent steroid therapy )\ Hba1c 8.7 today On lantus and insulin sliding scale while in the hospital Will consider to start on metformin on Discharge Continue monitor BS (7) Elevated troponin: Plan: Possible related to demand ischemia due PE and hypoxia Troponin on admission 0.102, then trending down to 0.08 Denies any chest pain EKG showed no acute ischemic changes Pt was started on heparin drip due to evidence of PE on CTA chest ECHO showed no LV wall motion abnormality and no RV strain noted Clinically stable Questionable Pneumonitis CTA chest showed progressive groundglass airspace opacities within the right lung. Will start on Augmentin BID Incentive spirometry and pulm toilet Rash Etiology unknown Will continue Benadryl prn Consider to add topical steroid if no improvement DVT px on Heparin drip CODE STATUS FULL CODE Admission and Anticipated Discharge Date Admission Date: July 23, 2021 Subjective Patient was seen and examined for follow-up of shortness of breath/PE Lying in bed with no acute respiratory distress She said now she is feeling a little bit better Denies any chest pain, palpitation, fever and diarrhea Review of Systems Review of Systems: All systems reviewed & are unremarkable except as noted in Subjective Physical Exam Physical Exam: General- No acute distress Head- atraumatic Eyes- PERRL, EOMI, ENT- oropharynx clear Neck- supple, no JVD Lungs- coarse BS Heart- regular rhythm; no murmur Abdomen- normal bowel sounds, soft, nontender Extremities- no calf tenderness Neuro- alert, oriented x 3; PERRL, EOMI; no facial palsy; no dysarthria Skin- +rash in chest, arms and upper back area. Results & Data Results & Data ([facility]) Vital Signs (Past 12 Hours) Vital Signs Temp Pulse Pulse Resp BP BP Pulse Ox 07/26/21 15:22 110 H 24 96 07/26/21 15:00 36.8 C 107 H 20 126/81 97 07/26/21 11:10 106 H 18 93 07/26/21 11:00 36.8 C 105 H 20 122/70 97 07/26/21 07:16 104 H 07/26/21 07:10 101 H 20 97 07/26/21 06:46 36.6 C 102 H 20 127/77 98
[2021-07-26] MEDS: HEPARIN SODIUM/DEXTROSE 25,000 UNITS/500 ML BAG IV SCH (21:44)
[2021-07-26] MEDS: methylPREDNISolone 30 MG in SYRINGE 0 ML IV SCH (21:45)
[2021-07-26] MEDS: INSULIN GLARGINE SOLOSTAR 100 UNITS/ML 3 ML PEN SC SCH (21:46)
[2021-07-26 22:14] LABS: Partial Thromboplastin Ratio 1.7; Partial Thromboplastin Time 43.9 Seconds (21.0-31.0)
[2021-07-27 04:56] LABS: Hematocrit (blood only) 26.3 % (37-47); Hemoglobin 8.5 g/dL (12.0-16.0); Mean Corpuscular Hemoglobin 31.5 pg (25-34); Mean Corpuscular Hgb Conc 32.3 g/dL (32-36); Mean Corpuscular Volume 97.4 fL (80-100); Mean Platelet Volume 10.5 fL (7.4-10.4); Platelet Count 232 K/uL (130-400); RDW Coefficient of Variation 14.4 % (11.5-14.5); RDW Standard Deviation 50.5 fL (36.4-46.3); White Blood Count 11.71 K/uL (4.8-10.8)
[2021-07-27 05:28] LABS: Partial Thromboplastin Time 51.8 Seconds (21.0-31.0)
[2021-07-27 05:30] LABS: BUN Creatinine Ratio 22.2 (10-20); Calcium 8.2 mg/dl (8.5-10.1); Creatinine Clr Calc Pharmacy 73.1 ml/min; Est GFR (African American) 107.7 ml/min; Potassium 4.2 mmol/L (3.5-5.1)
[2021-07-27] MEDS: methylPREDNISolone 30 MG in SYRINGE 0 ML IV SCH ×3 (06:11→22:02)
[2021-07-27] MEDS: ALBUT/IPRATROP 3MG/0.5MG NEB 3 ML VIAL NEB SCH ×4 (07:50→20:00)
[2021-07-27] MEDS: AMOXICILLIN/CLAVULANATE 875 MG TAB PO SCH ×2 (08:22→17:37)
[2021-07-27] MEDS: INSULIN ASPART 100 UNITS/ML 3 ML PEN SC SCH ×4 (08:26→22:03)
[2021-07-27] MEDS ORDERED: SODIUM CHLORIDE 0.65% NA SOLN 45 ML (OCEAN) PRN (10:40)
--- NOTE | 2021-07-27 16:44 | Hospitalist Progress Note ---
Date of Service July 27, 2021 Assessment & Plan (1) Bilateral pulmonary embolism: Plan: Present on admission with worsening SOB with minimal exertion Risk factors: Adenocarcinoma of the Right Lung with Met to liver and brain CTA chest showed bilateral pulmonary emboli. Interval progression of the mediastinal/right hilar large infiltrative mass with progressive moderate to severe narrowing of the superior vena cava. Progressive groundglass airspace opacities within the right lung. This could be due to a postobstructive pneumonitis or superimposed pulmonary infarcts. Continue heparin drip since pt has been having hemoptysis Echo showed no RV strain Case discussed with Oncology Dr. Medrano and agreed with the IV heparin then consider to transition to Eliquis on discharge Continue monitor H/H due to ongoing hepmotysis Will need a repeat CT chest in 4 to 6 weeks for follow up of possible pulmonary infarct Clinically a little better today-has cough but no hemoptysis Continue current medications (2) Shortness of breath: Plan: Secondary to pulmonary embolism and CT of the lung (3) Brain metastases: Plan: Has metastatic disease and metastasis to brain without any acute confusion or edema in the brain (4) Metastatic disease: Plan: Adenocarcinoma of the Lung with Met to liver and brain (5) Lung mass: Plan: Recently diagnosed few months ago with biopsy showed adenocarcinoma CT chest showed Interval progression of the mediastinal/right hilar large infiltrative mass with progressive moderate to severe narrowing of the superior vena cava. However, no evidence for SVC obstruction at this time. She had an appointment with Oncology today to discuss about treatment option Dr. Medrano was informed about the patient is admitting in the hospital Dr. Medrano said that he would review her chart Will need outpatient follow Has been getting radiation treatment from [facility] oncology service (6) Hyperglycemia: Plan: Newly diagnosed DM Possible related to diabetes (Possible worsening due to recent steroid therapy )\ Hba1c 8.7 today On lantus and insulin sliding scale while in the hospital Will consider to start on metformin on Discharge Continue monitor BS (7) Elevated troponin: Plan: Mostly related to PE Troponin on admission 0.102, then trending down to 0.08 Denies any chest pain EKG showed no acute ischemic changes Pt was started on heparin drip due to evidence of PE on CTA chest ECHO showed no LV wall motion abnormality and no RV strain noted Clinically stable without any cardiac symptoms Questionable Pneumonitis CTA chest showed progressive groundglass airspace opacities within the right lung. Will start on Augmentin BID Incentive spirometry and pulm toilet Rash Etiology unknown Will continue Benadryl prn Consider to add topical steroid if no improvement DVT px on Heparin drip CODE STATUS FULL CODE Admission and Anticipated Discharge Date Admission Date: July 23, 2021 Subjective 07/27/2021 The patient was seen and examined in medical telemetry unit She has been feeling a little better Denies any chest pain but has cough without any hemoptysis Complains to have mild shortness of breath Review of Systems Review of Systems: All systems reviewed and are unremarkable except as noted below Respiratory: Moderate shortness of breath at rest Physical Exam Physical Exam: Lying in bed with minimal distress secondary to shortness of breath Constitutional: well developed, well nourished, + ill appearing and average body habitus Eyes: PERRL, conjunctivae normal, anicteric sclerae ENMT: external ear and nose normal, oropharynx normal Neck: trachea midline, no thyromegaly Respiratory: + respiratory distress (Mild to moderate shortness of breath at rest) and + cough; no retractions Auscultation: + diminished lung sounds and + crackles (Occasional crackles at the bases) Cardiovascular: Rate/Rhythm: regular rate, regular rhythm and + tachycardic Heart Sounds: normal S1 and normal S2; no murmur Extremities: + edema (Trace edema bilaterally) Gastrointestinal (Abdomen): Inspection/Auscultation: normal bowel sounds; abdomen not distended Percussion/Palpation: abdomen soft; abdomen nontender Musculoskeletal: No acute arthritis in any joint Neurologic: Alert, awake and oriented x3. Generally weak Results & Data Results & Data ([facility]) Vital Signs (Past 12 Hours) Vital Signs Temp Pulse Pulse Resp BP BP Pulse Ox 07/27/21 15:00 37.0 C 114 H 20 154/72 H 95 07/27/21 11:31 36.4 C L 105 H 20 136/80 95 07/27/21 11:02 101 H 20 07/27/21 09:28 101 H 07/27/21 07:52 74 18 98 07/27/21 06:54 36.9 C 99 H 20 149/82 H 97 Laboratory Results Short CBC 07/27/21 Range/Units 04:32 WBC 11.71 H (4.8-10.8) K/uL Hgb 8.5 L (12.0-16.0) g/dL Hct 26.3 L (37-47) % Plt Count 232 (130-400) K/uL BMP 07/27/21 04:32 Sodium 140 Potassium 4.2 Chloride 106 Carbon Dioxide 31 BUN 16 Creatinine 0.72 Glucose 216 H Calcium 8.2 L Medications Administered Current Inpatient Medications Albuterol (Albuterol Hfa 8 Gm Inhaler) 2 puffs INH QID PRN PRN Reason: sob Stop: 08/22/21 16:28 Last Admin: 07/25/21 00:21 Dose: 2 puffs Documented by: Albuterol (Albut/Ipratrop 3mg/0.5mg Neb 3 Ml Vial) 3 ml NEB QIDR SACHIN Stop: 08/22/21 18:59 Last Admin: 07/27/21 15:13 Dose: Not Given Documented by: Amoxicillin/Clavulanate Potassium (Amoxicillin/Clavulanate 875 Mg Tab) 1 tab PO BIDM SACHIN Stop: 08/01/21 07:59 Last Admin: 07/27/21 08:22 Dose: 1 tab Documented by: Benzonatate (Benzonatate 100 Mg Capsule) 100 mg PO TID PRN PRN Reason: Cough Stop: 08/24/21 03:08 Last Admin: 07/25/21 04:03 Dose: 100 mg Documented by: Dextrose (Dextrose 50% 50 Ml Syringe) 25 - 50 ml IV UD PRN; Protocol PRN Reason: Hypoglycemia Protocol Stop: 08/22/21 20:25 Diphenhydramine HCl (Diphenhydramine Capsule 25 Mg Cap) 25 mg PO Q8H PRN PRN Reason: rash/itchiness Stop: 08/23/21 02:03 Glucagon (Glucagon For Inj 1 Mg Vial) 1 mg SQ UD PRN; Protocol PRN Reason: Hypoglycemia Protocol Stop: 08/22/21 20:25 Glucose (Glucose 10 Tabs/Tube) 4 - 8 tabs PO UD PRN; Protocol PRN Reason: Hypoglycemia Protocol Stop: 08/22/21 20:25 Glucose (Glucose 40% Gel 15 Gm Tube) 15 - 30 gm PO UD PRN; Protocol PRN Reason: Hypoglycemia Protocol Stop: 08/22/21 20:25 Promethazine HCl 12.5 mg/ (Sodium Chloride) 50.5 mls @ 202 mls/hr IV Q6H PRN PRN Reason: Nausea And Vomiting Stop: 08/23/21 15:08 Heparin Sodium/Dextrose (Heparin Sodium/Dextrose) 25,000 units in 500 mls @ 19 mls/hr IV .Q24H SACHIN; Protocol Stop: 08/24/21 13:44 Last Titration: 07/27/21 07:02 Dose: 950 units/hr, 19 mls/hr Documented by: Methylprednisolone 30 mg/ (Syringe) 0.48 mls @ 1.5 mls/min IV Q8H SACHIN Stop: 08/25/21 20:59 Last Admin: 07/27/21 12:32 Dose: 1.5 mls/min Documented by: Insulin Aspart (Insulin Aspart 100 Units/Ml 3 Ml Pen) 0 units SC ACHS SACHIN Stop: 08/23/21 01:14 Last Admin: 07/27/21 12:35 Dose: 8 units Documented by: Insulin Glargine (Insulin Glargine Solostar 100 Units/Ml 3 Ml Pen) 5 units SC HS SACHIN Stop: 08/23/21 20:59 Last Admin: 07/26/21 21:46 Dose: 5 units Documented by: Miscellaneous (Carbohydrates For Hypoglycemia ) 15 - 30 gm PO UD PRN PRN Reason: Hypoglycemia Protocol Stop: 08/22/21 20:25 Ondansetron HCl (Ondansetron Inj 2 Mg/Ml 2 Ml Vial) 4 mg IV Q6H PRN PRN Reason: Nausea And Vomiting Stop: 08/23/21 12:09 Last Admin: 07/24/21 13:13 Dose: 4 mg Documented by: Oxycodone HCl (Oxycodone Hcl Ir 5 Mg Tab (Immediate Release)) 5 mg PO Q6H PRN PRN Reason: Pain Stop: 08/06/21 16:28 Last Admin: 07/25/21 20:29 Dose: 5 mg Documented by: Sodium Chloride (Sodium Chloride 0.65% Na Soln 45 Ml (Ducor)) 1 sprays NA PRN PRN PRN Reason: Dryness Stop: 08/26/21 10:39
[2021-07-27] MEDS ORDERED: INSULIN HUMAN REGULAR PER UNIT 5 UNITS in SYRINGE 4.95 ML IV STA (20:43)
[2021-07-27] MEDS: INSULIN GLARGINE SOLOSTAR 100 UNITS/ML 3 ML PEN SC SCH (22:03)
[2021-07-27] MEDS: HEPARIN SODIUM/DEXTROSE 25,000 UNITS/500 ML BAG IV SCH (22:10)
[2021-07-28] MEDS: methylPREDNISolone 30 MG in SYRINGE 0 ML IV SCH ×2 (05:24→20:24)
[2021-07-28] MEDS: ALBUT/IPRATROP 3MG/0.5MG NEB 3 ML VIAL NEB SCH ×4 (07:16→20:10)
[2021-07-28 08:40] LABS: Basophils # (auto) 0.04 K/uL (0-0.2); Basophils % (auto) 0.3 %; Eosinophils # (auto) 0.44 K/uL (0-0.5); Eosinophils % (auto) 2.9 %; Hematocrit (blood only) 30.8 % (37-47); Hemoglobin 9.9 g/dL (12.0-16.0); Immature Granulocytes # (auto) 0.36 K/uL (0.00-0.02); Immature Granulocytes % (auto) 2.4 %; Lymphocytes # (auto) 1.01 K/uL (1.2-3.4); Lymphocytes % (auto) 6.7 %; Mean Corpuscular Hemoglobin 31.4 pg (25-34); Mean Corpuscular Hgb Conc 32.1 g/dL (32-36); Mean Corpuscular Volume 97.8 fL (80-100); Mean Platelet Volume 10.6 fL (7.4-10.4); Monocytes # (auto) 1.83 K/uL (0.11-0.59); Monocytes % (auto) 12.1 %; Neutrophils # (auto) 11.47 K/uL (1.4-6.5); Neutrophils % (auto) 75.6 %; Nucleated RBC # (auto) 0.07 K/uL (0-0); Nucleated RBC % (auto) 0.5 %; Platelet Count 320 K/uL (130-400); RDW Coefficient of Variation 14.4 % (11.5-14.5); RDW Standard Deviation 50.8 fL (36.4-46.3); Red Blood Count 3.15 M/uL (4.2-5.4); White Blood Count 15.15 K/uL (4.8-10.8)
[2021-07-28 08:52] LABS: INR 1.2 (0.9-1.1); Partial Thromboplastin Ratio 1.6; Partial Thromboplastin Time 42.7 Seconds (21.0-31.0); Prothrombin Time 11.6 Seconds (9.0-12.0)
[2021-07-28 09:13] LABS: BUN Creatinine Ratio 22.5 (10-20); Calcium 8.8 mg/dl (8.5-10.1); Creatinine Clr Calc Pharmacy 69.9 ml/min; Est GFR (African American) 104.2 ml/min; Est GFR (Non-African American) 89.9 ml/min; Magnesium 2.2 mg/dl (1.8-2.4); Potassium 4.1 mmol/L (3.5-5.1)
[2021-07-28 09:14] LABS: Phosphorus 3.1 mg/dl (2.5-4.9)
[2021-07-28] MEDS: AMOXICILLIN/CLAVULANATE 875 MG TAB PO SCH ×2 (09:15→16:52)
[2021-07-28] MEDS: INSULIN ASPART 100 UNITS/ML 3 ML PEN SC SCH ×4 (09:16→20:24)
[2021-07-28] MEDS: POLYETHYLENE (MIRALAX) 17 GM PACK PO SCH (09:49)
[2021-07-28 16:00] LABS: Partial Thromboplastin Ratio 1.7; Partial Thromboplastin Time 43.4 Seconds (21.0-31.0)
--- NOTE | 2021-07-28 16:54 | Hospitalist Progress Note ---
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 Interval progression of the mediastinal/right hilar large infiltrative mass with progressive moderate to severe narrowing of the superior vena cava. Progressive groundglass airspace opacities within the right lung. This could be due to a postobstructive pneumonitis or superimposed pulmonary infarcts. Continue heparin drip since pt has been having hemoptysis Echo showed no RV strain Case discussed with Oncology Dr. Medrano and agreed with the IV heparin then consider to transition to Eliquis on discharge Continue monitor H/H due to ongoing hepmotysis Will need a repeat CT chest in 4 to 6 weeks for follow up of possible pulmonary infarct Clinically a little better today-has cough but no hemoptysis Remains stable and denies any chest pain (2) Shortness of breath: Plan: Secondary to pulmonary embolism and CT of the lung Shortness of breath is mild to moderate We will continue oxygen as needed We will get PT and OT evaluation (3) Brain metastases: Plan: Has metastatic disease and metastasis to brain without any acute confusion or edema in the brain (4) Metastatic disease: Plan: Adenocarcinoma of the Lung with Met to liver and brain (5) Lung mass: Plan: Recently diagnosed few months ago with biopsy showed adenocarcinoma CT chest showed Interval progression of the mediastinal/right hilar large infilt rative mass with progressive moderate to severe narrowing of the superior vena cava. However, no evidence for SVC obstruction at this time. She had an appointment with Oncology today to discuss about treatment option Dr. Medrano was informed about the patient is admitting in the hospital Dr. Medrano said that he would review her chart Will need outpatient follow Has been getting radiation treatment from [facility] oncology service Did have first dose of radiation therapy yesterday and will get another dose today (6) Hyperglycemia: Plan: Newly diagnosed DM Possible related to diabetes (Possible worsening due to recent steroid therapy )\ Hba1c 8.7 today On lantus and insulin sliding scale while in the hospital Will consider to start on metformin on Discharge Continue monitor BS and cover as per sliding scale (7) Elevated troponin: Plan: Mostly related to PE Troponin on admission 0.102, then trending down to 0.08 Denies any chest pain EKG showed no acute ischemic changes Pt was started on heparin drip due to evidence of PE on CTA chest ECHO showed no LV wall motion abnormality and no RV strain noted Clinically stable without any cardiac symptoms Questionable Pneumonitis CTA chest showed progressive groundglass airspace opacities within the right lung. Will start on Augmentin BID Incentive spirometry and pulm toilet Rash Etiology unknown Will continue Benadryl prn Consider to add topical steroid if no improvement DVT px on Heparin drip CODE STATUS FULL CODE Admission and Anticipated Discharge Date Admission Date: July 23, 2021 Subjective 07/27/2021 The patient was seen and examined in medical telemetry unit She has been feeling a little better Denies any chest pain but has cough without any hemoptysis Complains to have mild shortness of breath 07/28/2021 The patient was seen and examined in medical telemetry unit She is a status post radiation treatment for the lung cancer today She has been feeling a little bit better but is still remains shortness of breath and generally weak and lethargic Review of Systems Review of Systems: All systems reviewed and are unremarkable except as noted below Respiratory: Moderate shortness of breath at rest Physical Exam Physical Exam: Lying in bed with minimal distress secondary to shortness of breath Constitutional: well developed, well nourished, + ill appearing and average body habitus Eyes: PERRL, conjunctivae normal, anicteric sclerae ENMT: external ear and nose normal, oropharynx normal Neck: trachea midline, no thyromegaly Respiratory: + respiratory distress (Mild to moderate shortness of breath at rest) and + cough; no retractions Auscultation: + diminished lung sounds and + crackles (Occasional crackles at the bases) Cardiovascular: Rate/Rhythm: regular rate, regular rhythm and + tachycardic Heart Sounds: normal S1 and normal S2; no murmur Extremities: + edema (Trace edema bilaterally) Gastrointestinal (Abdomen): Inspection/Auscultation: normal bowel sounds; abdomen not distended Percussion/Palpation: abdomen soft; abdomen nontender Musculoskeletal: No acute arthritis in any joint Neurologic: Alert, awake and oriented x3. Generally weak and lethargy Results & Data Results & Data ([facility]) Vital Signs (Past 12 Hours) Vital Signs Temp Pulse Pulse Resp BP Pulse Ox 07/28/21 14:57 111 H 18 93 07/28/21 11:14 36.5 C 109 H 20 144/90 H 93 07/28/21 10:55 102 H 18 94 07/28/21 08:28 36.4 C L 107 H 19 136/74 90 07/28/21 07:17 105 H 20 93 07/28/21 06:15 96 H Laboratory Results Short CBC 07/28/21 Range/Units 07:58 WBC 15.15 H (4.8-10.8) K/uL Hgb 9.9 L (12.0-16.0) g/dL Hct 30.8 L (37-47) % Plt Count 320 (130-400) K/uL BMP 07/28/21 07:58 Sodium 141 Potassium 4.1 Chloride 105 Carbon Dioxide 29 BUN 17 Creatinine 0.74 Glucose 180 H Calcium 8.8 Medications Administered Current Inpatient Medications Albuterol (Albuterol Hfa 8 Gm Inhaler) 2 puffs INH QID PRN PRN Reason: sob Stop: 08/22/21 16:28 Last Admin: 07/25/21 00:21 Dose: 2 puffs Documented by: Albuterol (Albut/Ipratrop 3mg/0.5mg Neb 3 Ml Vial) 3 ml NEB QIDR [facility] Stop: 08/22/21 18:59 Last Admin: 07/28/21 14:57 Dose: 3 ml Documented by: Amoxicillin/Clavulanate Potassium (Amoxicillin/Clavulanate 875 Mg Tab) 1 tab PO BIDM [facility] Stop: 08/01/21 07:59 Last Admin: 07/28/21 09:15 Dose: 1 tab Documented by: Benzonatate (Benzonatate 100 Mg Capsule) 100 mg PO TID PRN PRN Reason: Cough Stop: 08/24/21 03:08 Last Admin: 07/25/21 04:03 Dose: 100 mg Documented by: Dextrose (Dextrose 50% 50 Ml Syringe) 25 - 50 ml IV UD PRN; Protocol PRN Reason: Hypoglycemia Protocol Stop: 08/22/21 20:25 Diphenhydramine HCl (Diphenhydramine Capsule 25 Mg Cap) 25 mg PO Q8H PRN PRN Reason: rash/itchiness Stop: 08/23/21 02:03 Glucagon (Glucagon For Inj 1 Mg Vial) 1 mg SQ UD PRN; Protocol PRN Reason: Hypoglycemia Protocol Stop: 08/22/21 20:25 Glucose (Glucose 10 Tabs/Tube) 4 - 8 tabs PO UD PRN; Protocol PRN Reason: Hypoglycemia Protocol Stop: 08/22/21 20:25 Glucose (Glucose 40% Gel 15 Gm Tube) 15 - 30 gm PO UD PRN; Protocol PRN Reason: Hypoglycemia Protocol Stop: 08/22/21 20:25 Promethazine HCl 12.5 mg/ (Sodium Chloride) 50.5 mls @ 202 mls/hr IV Q6H PRN PRN Reason: Nausea And Vomiting Stop: 08/23/21 15:08 Heparin Sodium/Dextrose (Heparin Sodium/Dextrose) 25,000 units in 500 mls @ 20 mls/hr IV .Q24H [facility]; Protocol Stop: 08/24/21 13:44 Last Titration: 07/28/21 09:09 Dose: 1,000 units/hr, 20 mls/hr Documented by: Methylprednisolone 30 mg/ (Syringe) 0.48 mls @ 1.5 mls/min IV BID [facility] Stop: 08/27/21 20:59 Insulin Aspart (Insulin Aspart 100 Units/Ml 3 Ml Pen) 0 units SC ACHS [facility] Stop: 08/23/21 01:14 Last Admin: 07/28/21 12:19 Dose: 15 units Documented by: Insulin Glargine (Insulin Glargine Solostar 100 Units/Ml 3 Ml Pen) 10 units SC HS [facility] Stop: 08/26/21 20:59 Last Admin: 07/27/21 22:03 Dose: 10 units Documented by: Miscellaneous (Carbohydrates For Hypoglycemia ) 15 - 30 gm PO UD PRN PRN Reason: Hypoglycemia Protocol Stop: 08/22/21 20:25 Ondansetron HCl (Ondansetron Inj 2 Mg/Ml 2 Ml Vial) 4 mg IV Q6H PRN PRN Reason: Nausea And Vomiting Stop: 08/23/21 12:09 Last Admin: 07/24/21 13:13 Dose: 4 mg Documented by: Oxycodone HCl (Oxycodone Hcl Ir 5 Mg Tab (Immediate Release)) 5 mg PO Q6H PRN PRN Reason: Pain Stop: 08/06/21 16:28 Last Admin: 07/25/21 20:29 Dose: 5 mg Documented by: Polyethylene Glycol (Polyethylene (Miralax) 17 Gm Pack) 17 gm PO DAILY [facility] Stop: 08/27/21 09:44 Last Admin: 07/28/21 09:49 Dose: 17 gm Documented by: Sodium Chloride (Sodium Chloride 0.65% Na Soln 45 Ml ([place])) 1 sprays NA PRN PRN PRN Reason: Dryness Stop: 08/26/21 10:39
[2021-07-28] MEDS: INSULIN GLARGINE SOLOSTAR 100 UNITS/ML 3 ML PEN SC SCH (20:26)
[2021-07-28] MEDS: HEPARIN SODIUM/DEXTROSE 25,000 UNITS/500 ML BAG IV SCH (23:05)
[2021-07-29 00:08] LABS: Partial Thromboplastin Ratio 1.8
[2021-07-29 00:17] LABS: Partial Thromboplastin Time 47.9 Seconds (21.0-31.0)
[2021-07-29] MEDS: ALBUT/IPRATROP 3MG/0.5MG NEB 3 ML VIAL NEB SCH ×4 (07:15→19:26)
[2021-07-29 07:44] LABS: Partial Thromboplastin Ratio 2.2
[2021-07-29 07:46] LABS: Partial Thromboplastin Time 57.1 Seconds (21.0-31.0)
[2021-07-29] MEDS: INSULIN ASPART 100 UNITS/ML 3 ML PEN SC SCH ×4 (08:08→20:44)
[2021-07-29] MEDS: AMOXICILLIN/CLAVULANATE 875 MG TAB PO SCH ×2 (08:09→17:24)
[2021-07-29] MEDS: methylPREDNISolone 30 MG in SYRINGE 0 ML IV SCH (08:10)
[2021-07-29] MEDS: POLYETHYLENE (MIRALAX) 17 GM PACK PO SCH (08:10)
[2021-07-29] MEDS: HEPARIN SODIUM/DEXTROSE 25,000 UNITS/500 ML BAG IV SCH ×2 (14:56→22:46)
--- NOTE | 2021-07-29 16:11 | Hospitalist Progress Note ---
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 Interval progression of the mediastinal/right hilar large infiltrative mass with progressive moderate to severe narrowing of the superior vena cava. Progressive groundglass airspace opacities within the right lung. This could be due to a postobstructive pneumonitis or superimposed pulmonary infarcts. Continue heparin drip since pt has been having hemoptysis Echo showed no RV strain Case discussed with Oncology Dr. Medrano and agreed with the IV heparin then consider to transition to Eliquis on discharge Continue monitor H/H due to ongoing hepmotysis Will need a repeat CT chest in 4 to 6 weeks for follow up of possible pulmonary infarct Clinically a little better today-has cough but no hemoptysis Remains stable and denies any chest pain (2) Shortness of breath: Plan: Secondary to pulmonary embolism and CT of the lung Shortness of breath is mild to moderate We will continue oxygen as needed We will get PT and OT evaluation-recommended home as per PT evaluation (3) Brain metastases: Plan: Has metastatic disease and metastasis to brain without any acute confusion or edema in the brain (4) Metastatic disease: Plan: Adenocarcinoma of the Lung with Met to liver and brain (5) Lung mass: Plan: Recently diagnosed few months ago with biopsy showed adenocarcinoma CT chest showed Interval progression of the mediastinal/right hilar large infiltrative mass with progressive moderate to severe narrowing of the superior vena cava. However, no evidence for SVC obstruction at this time. She had an appointment with Oncology today to discuss about treatment option Dr. Medrano was informed about the patient is admitting in the hospital Dr. Medrano said that he would review her chart Will need outpatient follow Has been getting radiation treatment from [facility] oncology service Did have first dose of radiation therapy yesterday and will get another dose today She got the second dose of radiation yesterday and like to have more on Saturday (6) Hyperglycemia: Plan: Newly diagnosed DM Possible related to diabetes (Possible worsening due to recent steroid therapy )\ Hba1c 8.7 today On lantus and insulin sliding scale while in the hospital Will consider to start on metformin on Discharge Continue monitor BS and cover as per sliding scale (7) Elevated troponin: Plan: Mostly related to PE Troponin on admission 0.102, then trending down to 0.08 Denies any chest pain EKG showed no acute ischemic changes Pt was started on heparin drip due to evidence of PE on CTA chest ECHO showed no LV wall motion abnormality and no RV strain noted Clinically stable without any cardiac symptoms Questionable Pneumonitis CTA chest showed progressive groundglass airspace opacities within the right lung. Will start on Augmentin BID Incentive spirometry and pulm toilet Rash Etiology unknown Will continue Benadryl prn Consider to add topical steroid if no improvement DVT px on Heparin drip CODE STATUS FULL CODE Admission and Anticipated Discharge Date Admission Date: July 23, 2021 Subjective 07/27/2021 The patient was seen and examined in medical telemetry unit She has been feeling a little better Denies any chest pain but has cough without any hemoptysis Complains to have mild shortness of breath 07/28/2021 The patient was seen and examined in medical telemetry unit She is a status post radiation treatment for the lung cancer today She has been feeling a little bit better but is still remains shortness of breath and generally weak and lethargic 07/29/2021 The patient was seen and examined in medical telemetry unit She has been feeling better but not ready to be discharged She will get PT and OT evaluation and to do steps O2 saturation test before going home may be on Saturday Review of Systems Review of Systems: All systems reviewed and are unremarkable except as noted below Respiratory: Moderate shortness of breath at rest Physical Exam Physical Exam: Lying in bed with minimal distress secondary to shortness of breath Constitutional: well developed, well nourished, + ill appearing and average body habitus Eyes: PERRL, conjunctivae normal, anicteric sclerae ENMT: external ear and nose normal, oropharynx normal Neck: trachea midline, no thyromegaly Respiratory: + respiratory distress (Mild to moderate shortness of breath at rest) and + cough; no retractions Auscultation: + diminished lung sounds and + crackles (Occasional crackles at the bases) Cardiovascular: Rate/Rhythm: regular rate, regular rhythm and + tachycardic Heart Sounds: normal S1 and normal S2; no murmur Extremities: + edema (Trace edema bilaterally) Gastrointestinal (Abdomen): Inspection/Auscultation: normal bowel sounds; abdomen not distended Percussion/Palpation: abdomen soft; abdomen nontender Musculoskeletal: No acute arthritis in any joint Neurologic: Alert, awake and oriented x3 Results & Data Results & Data ([facility]) Vital Signs (Past 12 Hours) Vital Signs Temp Pulse Pulse Resp BP Pulse Ox Pulse Ox 07/29/21 11:59 96 07/29/21 11:04 100 H 18 95 07/29/21 07:57 37.0 C 93 H 20 133/81 97 07/29/21 07:17 102 H 18 96 07/29/21 06:18 94 H Pulse Ox 07/29/21 11:59 94 07/29/21 11:04 07/29/21 07:57 07/29/21 07:17 07/29/21 06:18 Medications Administered Current Inpatient Medications Albuterol (Albuterol Hfa 8 Gm Inhaler) 2 puffs INH QID PRN PRN Reason: sob Stop: 08/22/21 16:28 Last Admin: 07/25/21 00:21 Dose: 2 puffs Documented by: Albuterol (Albut/Ipratrop 3mg/0.5mg Neb 3 Ml Vial) 3 ml NEB QIDR [facility] Stop: 08/22/21 18:59 Last Admin: 07/29/21 16:06 Dose: 3 ml Documented by: Amoxicillin/Clavulanate Potassium (Amoxicillin/Clavulanate 875 Mg Tab) 1 tab PO BIDM [facility] Stop: 08/01/21 07:59 Last Admin: 07/29/21 08:09 Dose: 1 tab Documented by: Benzonatate (Benzonatate 100 Mg Capsule) 100 mg PO TID PRN PRN Reason: Cough Stop: 08/24/21 03:08 Last Admin: 07/25/21 04:03 Dose: 100 mg Documented by: Dextrose (Dextrose 50% 50 Ml Syringe) 25 - 50 ml IV UD PRN; Protocol PRN Reason: Hypoglycemia Protocol Stop: 08/22/21 20:25 Diphenhydramine HCl (Diphenhydramine Capsule 25 Mg Cap) 25 mg PO Q8H PRN PRN Reason: rash/itchiness Stop: 08/23/21 02:03 Glucagon (Glucagon For Inj 1 Mg Vial) 1 mg SQ UD PRN; Protocol PRN Reason: Hypoglycemia Protocol Stop: 08/22/21 20:25 Glucose (Glucose 10 Tabs/Tube) 4 - 8 tabs PO UD PRN; Protocol PRN Reason: Hypoglycemia Protocol Stop: 08/22/21 20:25 Glucose (Glucose 40% Gel 15 Gm Tube) 15 - 30 gm PO UD PRN; Protocol PRN Reason: Hypoglycemia Protocol Stop: 08/22/21 20:25 Promethazine HCl 12.5 mg/ (Sodium Chloride) 50.5 mls @ 202 mls/hr IV Q6H PRN PRN Reason: Nausea And Vomiting Stop: 08/23/21 15:08 Heparin Sodium/Dextrose (Heparin Sodium/Dextrose) 25,000 units in 500 mls @ 21 mls/hr IV .[id number] [facility]; Protocol Stop: 08/24/21 13:44 Last Admin: 07/29/21 14:56 Dose: Not Given Documented by: Insulin Aspart (Insulin Aspart 100 Units/Ml 3 Ml Pen) 0 units SC ACHS [facility] Stop: 08/23/21 01:14 Last Admin: 07/29/21 12:12 Dose: 14 units Documented by: Insulin Glargine (Insulin Glargine Solostar 100 Units/Ml 3 Ml Pen) 10 units SC HS [facility] Stop: 08/26/21 20:59 Last Admin: 07/28/21 20:26 Dose: 10 units Documented by: Miscellaneous (Carbohydrates For Hypoglycemia ) 15 - 30 gm PO UD PRN PRN Reason: Hypoglycemia Protocol Stop: 08/22/21 20:25 Ondansetron HCl (Ondansetron Inj 2 Mg/Ml 2 Ml Vial) 4 mg IV Q6H PRN PRN Reason: Nausea And Vomiting Stop: 08/23/21 12:09 Last Admin: 07/24/21 13:13 Dose: 4 mg Documented by: Oxycodone HCl (Oxycodone Hcl Ir 5 Mg Tab (Immediate Release)) 5 mg PO Q6H PRN PRN Reason: Pain Stop: 08/06/21 16:28 Last Admin: 07/25/21 20:29 Dose: 5 mg Documented by: Polyethylene Glycol (Polyethylene (Miralax) 17 Gm Pack) 17 gm PO DAILY [facility] Stop: 08/27/21 09:44 Last Admin: 07/29/21 08:10 Dose: Not Given Documented by: Prednisone (Prednisone 10 Mg Tablet) 30 mg PO DAILY [facility] Stop: 08/29/21 08:59 Sodium Chloride (Sodium Chloride 0.65% Na Soln 45 Ml ([place])) 1 sprays NA PRN PRN PRN Reason: Dryness Stop: 08/26/21 10:39
[2021-07-29] MEDS: INSULIN GLARGINE SOLOSTAR 100 UNITS/ML 3 ML PEN SC SCH (20:45)
[2021-07-30] MEDS: oxyCODONE HCL IR 5 MG TAB (IMMEDIATE RELEASE) PO PRN (06:36)
[2021-07-30] MEDS: ALBUT/IPRATROP 3MG/0.5MG NEB 3 ML VIAL NEB SCH ×4 (07:17→19:22)
[2021-07-30] MEDS: INSULIN ASPART 100 UNITS/ML 3 ML PEN SC SCH ×4 (08:45→20:45)
[2021-07-30] MEDS: AMOXICILLIN/CLAVULANATE 875 MG TAB PO SCH ×2 (08:45→18:02)
[2021-07-30] MEDS: predniSONE 10 MG TABLET PO SCH (08:45)
[2021-07-30] MEDS: POLYETHYLENE (MIRALAX) 17 GM PACK PO SCH (08:55)
[2021-07-30 09:40] LABS: Basophils # (auto) 0.01 K/uL (0-0.2); Basophils % (auto) 0.1 %; Eosinophils # (auto) 2.31 K/uL (0-0.5); Hematocrit (blood only) 31.2 % (37-47); Hemoglobin 9.8 g/dL (12.0-16.0); Immature Granulocytes # (auto) 0.23 K/uL (0.00-0.02); Immature Granulocytes % (auto) 1.5 %; Lymphocytes # (auto) 0.98 K/uL (1.2-3.4); Lymphocytes % (auto) 6.4 %; Mean Corpuscular Hemoglobin 30.5 pg (25-34); Mean Corpuscular Hgb Conc 31.4 g/dL (32-36); Mean Corpuscular Volume 97.2 fL (80-100); Mean Platelet Volume 10.8 fL (7.4-10.4); Monocytes # (auto) 0.95 K/uL (0.11-0.59); Monocytes % (auto) 6.2 %; Neutrophils # (auto) 10.87 K/uL (1.4-6.5); Neutrophils % (auto) 70.8 %; Platelet Count 282 K/uL (130-400); RDW Coefficient of Variation 14.8 % (11.5-14.5); RDW Standard Deviation 51.7 fL (36.4-46.3); Red Blood Count 3.21 M/uL (4.2-5.4); White Blood Count 15.35 K/uL (4.8-10.8)
[2021-07-30 09:55] LABS: BUN Creatinine Ratio 28.2 (10-20); Calcium 8.6 mg/dl (8.5-10.1); Creatinine Clr Calc Pharmacy 65.9 ml/min; Est GFR (African American) 97.8 ml/min; Est GFR (Non-African American) 84.4 ml/min; Magnesium 2.2 mg/dl (1.8-2.4); Potassium 3.6 mmol/L (3.5-5.1)
[2021-07-30 09:58] LABS: Phosphorus 4.5 mg/dl (2.5-4.9)
[2021-07-30 10:00] LABS: Partial Thromboplastin Ratio 2.1
[2021-07-30 11:16] LABS: Partial Thromboplastin Time 54.4 Seconds (21.0-31.0)
--- NOTE | 2021-07-30 14:46 | Hospitalist Progress Note ---
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 Interval progression of the mediastinal/right hilar large infiltrative mass with progressive moderate to severe narrowing of the superior vena cava. Progressive groundglass airspace opacities within the right lung. This could be due to a postobstructive pneumonitis or superimposed pulmonary infarcts. Continue heparin drip since pt has been having hemoptysis Echo showed no RV strain Case discussed with Oncology Dr. Medrano and agreed with the IV heparin then consider to transition to Eliquis on discharge Continue monitor H/H due to ongoing hepmotysis Will need a repeat CT chest in 4 to 6 weeks for follow up of possible pulmonary infarct Clinically a little better today-has cough but no hemoptysis Remains stable and denies any chest pain Clinically much better and will put on Eliquis on discharge (2) Shortness of breath: Plan: Secondary to pulmonary embolism and CT of the lung Shortness of breath is mild to moderate We will continue oxygen as needed We will get PT and OT evaluation-recommended home as per PT evaluation Denies any shortness of breath at rest PT and OT recommended home (3) Brain metastases: Plan: Has metastatic disease and metastasis to brain without any acute confusion or edema in the brain (4) Metastatic disease: Plan: Adenocarcinoma of the Lung with Met to liver and brain We will continue radiation treatment as per the radiation oncologist We will see her oncologist as an outpatient (5) Lung mass: Plan: Recently diagnosed few months ago with biopsy showed adenocarcinoma CT chest showed Interval progression of the mediastinal/right hilar large infiltrative mass with progressive moderate to severe narrowing of the superior vena cava. However, no evidence for SVC obstruction at this time. She had an appointment with Oncology today to discuss about treatment option Dr. Medrano was informed about the patient is admitting in the hospital Dr. Medrano said that he would review her chart Will need outpatient follow Has been getting radiation treatment from [facility] oncology service Did have first dose of radiation therapy yesterday and will get another dose today She got the second dose of radiation yesterday and like to have more on Saturday (6) Hyperglycemia: Plan: Newly diagnosed DM Possible related to diabetes (Possible worsening due to recent steroid therapy )\ Hba1c 8.7 today On lantus and insulin sliding scale while in the hospital Will consider to start on metformin on Discharge Continue monitor BS and cover as per sliding scale We will decrease the dose of steroid as advised (7) Elevated troponin: Plan: Mostly related to PE Troponin on admission 0.102, then trending down to 0.08 Denies any chest pain EKG showed no acute ischemic changes Pt was started on heparin drip due to evidence of PE on CTA chest ECHO showed no LV wall motion abnormality and no RV strain noted Clinically stable without any cardiac symptoms Questionable Pneumonitis CTA chest showed progressive groundglass airspace opacities within the right lung. Will start on Augmentin BID Incentive spirometry and pulm toilet Rash Etiology unknown Will continue Benadryl prn Consider to add topical steroid if no improvement DVT px on Heparin drip CODE STATUS FULL CODE Admission and Anticipated Discharge Date Admission Date: July 23, 2021 Subjective 07/27/2021 The patient was seen and examined in medical telemetry unit She has been feeling a little better Denies any chest pain but has cough without any hemoptysis Complains to have mild shortness of breath 07/28/2021 The patient was seen and examined in medical telemetry unit She is a status post radiation treatment for the lung cancer today She has been feeling a little bit better but is still remains shortness of breath and generally weak and lethargic 07/29/2021 The patient was seen and examined in medical telemetry unit She has been feeling better but not ready to be discharged She will get PT and OT evaluation and to do steps O2 saturation test before going home may be on Saturday07/30/2021 The patient was seen and examined in medical telemetry unit She has been feeling much better today She passed the physical therapy and recommended home Denies any other symptoms except weakness Review of Systems Review of Systems: All systems reviewed and are unremarkable except as noted below Respiratory: Moderate shortness of breath at rest Physical Exam Physical Exam: Lying in bed with minimal distress secondary to shortness of breath Constitutional: well developed, well nourished, + ill appearing and average body habitus Eyes: PERRL, conjunctivae normal, anicteric sclerae ENMT: external ear and nose normal, oropharynx normal Neck: trachea midline, no thyromegaly Respiratory: + respiratory distress (Mild to moderate shortness of breath at rest) and + cough; no retractions Auscultation: + diminished lung sounds and + crackles (Occasional crackles at the bases) Cardiovascular: Rate/Rhythm: regular rate, regular rhythm and + tachycardic Heart Sounds: normal S1 and normal S2; no murmur Extremities: + edema (Trace edema bilaterally) Gastrointestinal (Abdomen): Inspection/Auscultation: normal bowel sounds; abdomen not distended Percussion/Palpation: abdomen soft; abdomen nontender Musculoskeletal: No acute arthritis in any joint Neurologic: Alert, awake and oriented x3 Lymphatic: no cervical or axillary lymphadenopathy Results & Data Results & Data ([facility]) Vital Signs (Past 12 Hours) Vital Signs Temp Pulse Pulse Resp BP Pulse Ox 07/30/21 11:14 36.8 C 97 H 18 127/83 92 07/30/21 11:05 89 18 93 07/30/21 07:58 36.8 C 93 H 18 125/79 92 07/30/21 07:41 99 H 07/30/21 07:19 90 18 92 07/30/21 04:17 36.5 C 96 H 20 124/81 94 Medications Administered Current Inpatient Medications Albuterol (Albuterol Hfa 8 Gm Inhaler) 2 puffs INH QID PRN PRN Reason: sob Stop: 08/22/21 16:28 Last Admin: 07/25/21 00:21 Dose: 2 puffs Documented by: Albuterol (Albut/Ipratrop 3mg/0.5mg Neb 3 Ml Vial) 3 ml NEB QIDR SACHIN Stop: 08/22/21 18:59 Last Admin: 07/30/21 10:39 Dose: 3 ml Documented by: Amoxicillin/Clavulanate Potassium (Amoxicillin/Clavulanate 875 Mg Tab) 1 tab PO BIDM [facility] Stop: 08/01/21 07:59 Last Admin: 07/30/21 08:45 Dose: 1 tab Documented by: Benzonatate (Benzonatate 100 Mg Capsule) 100 mg PO TID PRN PRN Reason: Cough Stop: 08/24/21 03:08 Last Admin: 07/25/21 04:03 Dose: 100 mg Documented by: Dextrose (Dextrose 50% 50 Ml Syringe) 25 - 50 ml IV UD PRN; Protocol PRN Reason: Hypoglycemia Protocol Stop: 08/22/21 20:25 Diphenhydramine HCl (Diphenhydramine Capsule 25 Mg Cap) 25 mg PO Q8H PRN PRN Reason: rash/itchiness Stop: 08/23/21 02:03 Glucagon (Glucagon For Inj 1 Mg Vial) 1 mg SQ UD PRN; Protocol PRN Reason: Hypoglycemia Protocol Stop: 08/22/21 20:25 Glucose (Glucose 10 Tabs/Tube) 4 - 8 tabs PO UD PRN; Protocol PRN Reason: Hypoglycemia Protocol Stop: 08/22/21 20:25 Glucose (Glucose 40% Gel 15 Gm Tube) 15 - 30 gm PO UD PRN; Protocol PRN Reason: Hypoglycemia Protocol Stop: 08/22/21 20:25 Promethazine HCl 12.5 mg/ (Sodium Chloride) 50.5 mls @ 202 mls/hr IV Q6H PRN PRN Reason: Nausea And Vomiting Stop: 08/23/21 15:08 Heparin Sodium/Dextrose (Heparin Sodium/Dextrose) 25,000 units in 500 mls @ 21 mls/hr IV .[id number] [facility]; Protocol Stop: 08/24/21 13:44 Last Titration: 07/30/21 07:02 Dose: 1,050 units/hr, 21 mls/hr Documented by: Insulin Aspart (Insulin Aspart 100 Units/Ml 3 Ml Pen) 0 units SC ACHS [facility] Stop: 08/23/21 01:14 Last Admin: 07/30/21 12:30 Dose: 13 units Documented by: Insulin Glargine (Insulin Glargine Solostar 100 Units/Ml 3 Ml Pen) 10 units SC HS [facility] Stop: 08/26/21 20:59 Last Admin: 07/29/21 20:45 Dose: 10 units Documented by: Miscellaneous (Carbohydrates For Hypoglycemia ) 15 - 30 gm PO UD PRN PRN Reason: Hypoglycemia Protocol Stop: 08/22/21 20:25 Ondansetron HCl (Ondansetron Inj 2 Mg/Ml 2 Ml Vial) 4 mg IV Q6H PRN PRN Reason: Nausea And Vomiting Stop: 08/23/21 12:09 Last Admin: 07/24/21 13:13 Dose: 4 mg Documented by: Oxycodone HCl (Oxycodone Hcl Ir 5 Mg Tab (Immediate Release)) 5 mg PO Q6H PRN PRN Reason: Pain Stop: 08/06/21 16:28 Last Admin: 07/30/21 06:36 Dose: 5 mg Documented by: Polyethylene Glycol (Polyethylene (Miralax) 17 Gm Pack) 17 gm PO DAILY SACHIN Stop: 08/27/21 09:44 Last Admin: 07/30/21 08:55 Dose: Not Given Documented by: Prednisone (Prednisone 10 Mg Tablet) 30 mg PO DAILY SACHIN Stop: 08/29/21 08:59 Last Admin: 07/30/21 08:45 Dose: 30 mg Documented by: Sodium Chloride (Sodium Chloride 0.65% Na Soln 45 Ml ([place])) 1 sprays NA PRN PRN PRN Reason: Dryness Stop: 08/26/21 10:39
[2021-07-30] MEDS: INSULIN GLARGINE SOLOSTAR 100 UNITS/ML 3 ML PEN SC SCH (20:46)
[2021-07-30] MEDS: HEPARIN SODIUM/DEXTROSE 25,000 UNITS/500 ML BAG IV SCH (22:55)
[2021-07-31 05:01] LABS: BUN Creatinine Ratio 25.7 (10-20); Calcium 8.5 mg/dl (8.5-10.1); Creatinine Clr Calc Pharmacy 65.9 ml/min; Est GFR (African American) 97.8 ml/min; Est GFR (Non-African American) 84.4 ml/min; Magnesium 2.1 mg/dl (1.8-2.4); Potassium 3.9 mmol/L (3.5-5.1)
[2021-07-31 05:02] LABS: Partial Thromboplastin Ratio 2.4
[2021-07-31 05:13] LABS: Partial Thromboplastin Time 62.1 Seconds (21.0-31.0)
[2021-07-31] MEDS: ALBUT/IPRATROP 3MG/0.5MG NEB 3 ML VIAL NEB SCH ×3 (07:24→15:30)
[2021-07-31] MEDS: AMOXICILLIN/CLAVULANATE 875 MG TAB PO SCH (08:13)
[2021-07-31] MEDS: predniSONE 10 MG TABLET PO SCH (08:13)
[2021-07-31] MEDS: INSULIN ASPART 100 UNITS/ML 3 ML PEN SC SCH ×2 (08:15→12:27)
[2021-07-31] MEDS: POLYETHYLENE (MIRALAX) 17 GM PACK PO SCH (08:16)
--- NOTE | 2021-07-31 12:33 | Hospitalist Progress Note ---
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 Interval progression of the mediastinal/right hilar large infiltrative mass with progressive moderate to severe narrowing of the superior vena cava. Progressive groundglass airspace opacities within the right lung. This could be due to a postobstructive pneumonitis or superimposed pulmonary infarcts. Continue heparin drip since pt has been having hemoptysis Echo showed no RV strain Case discussed with Oncology Dr. Medrano and agreed with the IV heparin then consider to transition to Eliquis on discharge Continue monitor H/H due to ongoing hepmotysis Will need a repeat CT chest in 4 to 6 weeks for follow up of possible pulmonary infarct Clinically a little better today-has cough but no hemoptysis Remains stable and denies any chest pain Clinically much better and will put on Eliquis on discharge We will start Eliquis and DC heparin (2) Shortness of breath: Plan: Secondary to pulmonary embolism and CT of the lung Shortness of breath is mild to moderate We will continue oxygen as needed We will get PT and OT evaluation-recommended home as per PT evaluation Denies any shortness of breath at rest PT and OT recommended home Passed to a stable to saturation test (3) Brain metastases: Plan: Has metastatic disease and metastasis to brain without any acute confusion or edema in the brain (4) Metastatic disease: Plan: Adenocarcinoma of the Lung with Met to liver and brain We will continue radiation treatment as per the radiation oncologist We will see her oncologist as an outpatient (5) Lung mass: Plan: Recently diagnosed few months ago with biopsy showed adenocarcinoma CT chest showed Interval progression of the mediastinal/right hilar large infiltrative mass with progressive moderate to severe narrowing of the superior vena cava. However, no evidence for SVC obstruction at this time. She had an appointment with Oncology today to discuss about treatment option Dr. Medrano was informed about the patient is admitting in the hospital Dr. Medrano said that he would review her chart Will need outpatient follow Has been getting radiation treatment from [facility] oncology service Did have first dose of radiation therapy yesterday and will get another dose today She got the second dose of radiation yesterday and like to have more on Saturday Discharge home this afternoon (6) Hyperglycemia: Plan: Newly diagnosed DM Possible related to diabetes (Possible worsening due to recent steroid therapy )\ Hba1c 8.7 today On lantus and insulin sliding scale while in the hospital Will consider to start on metformin on Discharge Continue monitor BS and cover as per sliding scale We will decrease the dose of steroid as advised (7) Elevated troponin: Plan: Mostly related to PE Troponin on admission 0.102, then trending down to 0.08 Denies any chest pain EKG showed no acute ischemic changes Pt was started on heparin drip due to evidence of PE on CTA chest ECHO showed no LV wall motion abnormality and no RV strain noted Clinically stable without any cardiac symptoms Questionable Pneumonitis CTA chest showed progressive groundglass airspace opacities within the right lung. Will start on Augmentin BID Incentive spirometry and pulm toilet Rash Etiology unknown Will continue Benadryl prn Consider to add topical steroid if no improvement DVT px on Heparin drip CODE STATUS FULL CODE Admission and Anticipated Discharge Date Admission Date: July 23, 2021 Subjective 07/27/2021 The patient was seen and examined in medical telemetry unit She has been feeling a little better Denies any chest pain but has cough without any hemoptysis Complains to have mild shortness of breath 07/28/2021 The patient was seen and examined in medical telemetry unit She is a status post radiation treatment for the lung cancer today She has been feeling a little bit better but is still remains shortness of breath and generally weak and lethargic 07/29/2021 The patient was seen and examined in medical telemetry unit She has been feeling better but not ready to be discharged She will get PT and OT evaluation and to do steps O2 saturation test before going home may be on Saturday07/30/2021 The patient was seen and examined in medical telemetry unit She has been feeling much better today She passed the physical therapy and recommended home Denies any other symptoms except weakness 07/31/2021 The patient was seen and examined in medical telemetry unit She has been feeling much better today Has minimal cough with exertion but saturating normally on room air Denies any chest pain or palpitation She passed the 2 steps O2 saturation test Review of Systems Review of Systems: All systems reviewed and are unremarkable except as noted below Respiratory: No shortness of breath at rest Physical Exam Physical Exam: Lying in bed with minimal distress secondary to shortness of breath Constitutional: well developed, well nourished, + ill appearing and average body habitus Eyes: PERRL, conjunctivae normal, anicteric sclerae ENMT: external ear and nose normal, oropharynx normal Neck: trachea midline, no thyromegaly Respiratory: + respiratory distress (Mild to moderate shortness of breath at rest) and + cough; no retractions Auscultation: + diminished lung sounds and + crackles (Occasional crackles at the bases) Cardiovascular: Rate/Rhythm: regular rate, regular rhythm and + tachycardic Heart Sounds: normal S1 and normal S2; no murmur Extremities: + edema (Trace edema bilaterally) Gastrointestinal (Abdomen): Inspection/Auscultation: normal bowel sounds; abdomen not distended Percussion/Palpation: abdomen soft; abdomen nontender Musculoskeletal: No acute arthritis in any joint Neurologic: Alert, awake and oriented x3 Lymphatic: no cervical or axillary lymphadenopathy Results & Data Results & Data ([facility]) Vital Signs (Past 12 Hours) Vital Signs Temp Pulse Pulse Pulse Pulse Resp Resp 07/31/21 10:16 111 H 118 H 98 H 22 07/31/21 10:05 98 H 21 07/31/21 07:37 36.9 C 92 H 18 07/31/21 07:24 98 H 18 07/31/21 02:48 36.9 C 93 H 17 Resp Resp BP Pulse Ox Pulse Ox Pulse Ox Pulse Ox 07/31/21 10:16 22 18 95 96 94 07/31/21 10:05 94 07/31/21 07:37 136/87 94 07/31/21 07:24 93 07/31/21 02:48 126/78 92 Laboratory Results [facility] 07/31/21 04:32 Sodium 136 Potassium 3.9 Chloride 106 Carbon Dioxide 28 BUN 20 H Creatinine 0.78 Glucose 130 H Calcium 8.5 Medications Administered Current Inpatient Medications Albuterol (Albuterol Hfa 8 Gm Inhaler) 2 puffs INH QID PRN PRN Reason: sob Stop: 08/22/21 16:28 Last Admin: 07/25/21 00:21 Dose: 2 puffs Documented by: Albuterol (Albut/Ipratrop 3mg/0.5mg Neb 3 Ml Vial) 3 ml NEB QIDR SACHIN Stop: 08/22/21 18:59 Last Admin: 07/31/21 10:04 Dose: 3 ml Documented by: Amoxicillin/Clavulanate Potassium (Amoxicillin/Clavulanate 875 Mg Tab) 1 tab PO BIDM SACHIN Stop: 08/01/21 07:59 Last Admin: 07/31/21 08:13 Dose: 1 tab Documented by: Benzonatate (Benzonatate 100 Mg Capsule) 100 mg PO TID PRN PRN Reason: Cough Stop: 08/24/21 03:08 Last Admin: 07/25/21 04:03 Dose: 100 mg Documented by: Dextrose (Dextrose 50% 50 Ml Syringe) 25 - 50 ml IV UD PRN; Protocol PRN Reason: Hypoglycemia Protocol Stop: 08/22/21 20:25 Diphenhydramine HCl (Diphenhydramine Capsule 25 Mg Cap) 25 mg PO Q8H PRN PRN Reason: rash/itchiness Stop: 08/23/21 02:03 Glucagon (Glucagon For Inj 1 Mg Vial) 1 mg SQ UD PRN; Protocol PRN Reason: Hypoglycemia Protocol Stop: 08/22/21 20:25 Glucose (Glucose 10 Tabs/Tube) 4 - 8 tabs PO UD PRN; Protocol PRN Reason: Hypoglycemia Protocol Stop: 08/22/21 20:25 Glucose (Glucose 40% Gel 15 Gm Tube) 15 - 30 gm PO UD PRN; Protocol PRN Reason: Hypoglycemia Protocol Stop: 08/22/21 20:25 Promethazine HCl 12.5 mg/ (Sodium Chloride) 50.5 mls @ 202 mls/hr IV Q6H PRN PRN Reason: Nausea And Vomiting Stop: 08/23/21 15:08 Heparin Sodium/Dextrose (Heparin Sodium/Dextrose) 25,000 units in 500 mls @ 21 mls/hr IV .[id number] [facility]; Protocol Stop: 08/24/21 13:44 Last Titration: 07/31/21 07:15 Dose: 1,050 units/hr, 21 mls/hr Documented by: Insulin Aspart (Insulin Aspart 100 Units/Ml 3 Ml Pen) 0 units SC ACHS [facility] Stop: 08/23/21 01:14 Last Admin: 07/31/21 12:27 Dose: 10 units Documented by: Insulin Glargine (Insulin Glargine Solostar 100 Units/Ml 3 Ml Pen) 10 units SC HS [facility] Stop: 08/26/21 20:59 Last Admin: 07/30/21 20:46 Dose: 10 units Documented by: Miscellaneous (Carbohydrates For Hypoglycemia ) 15 - 30 gm PO UD PRN PRN Reason: Hypoglycemia Protocol Stop: 08/22/21 20:25 Ondansetron HCl (Ondansetron Inj 2 Mg/Ml 2 Ml Vial) 4 mg IV Q6H PRN PRN Reason: Nausea And Vomiting Stop: 08/23/21 12:09 Last Admin: 07/24/21 13:13 Dose: 4 mg Documented by: Oxycodone HCl (Oxycodone Hcl Ir 5 Mg Tab (Immediate Release)) 5 mg PO Q6H PRN PRN Reason: Pain Stop: 08/06/21 16:28 Last Admin: 07/30/21 06:36 Dose: 5 mg Documented by: Polyethylene Glycol (Polyethylene (Miralax) 17 Gm Pack) 17 gm PO DAILY SACHIN Stop: 08/27/21 09:44 Last Admin: 07/31/21 08:16 Dose: Not Given Documented by: Prednisone (Prednisone 10 Mg Tablet) 30 mg PO DAILY SACHIN Stop: 08/29/21 08:59 Last Admin: 07/31/21 08:13 Dose: 30 mg Documented by: Sodium Chloride (Sodium Chloride 0.65% Na Soln 45 Ml ([place])) 1 sprays NA PRN PRN PRN Reason: Dryness Stop: 08/26/21 10:39
[2021-07-31] MEDS ORDERED: APIXABAN 5 MG TABLET PO SCH (16:30)
--- NOTE | 2021-08-01 07:20 | Discharge Summary ---
Date of Service August 01, 2021 Admission HPI Per Admitting Provider 55-year-old female with recent diagnosis of lung cancer with metastatic disease to the liver and brain presents the emergency department for evaluation of worsening SOB. Pt was recently admitted at [facility] last month for right right posterior shoulder pain and was found to have a mass in RUL lung mass with metastases to Liver and brain with brain edema. She was transferred to a tertiary care to [facility]. She had biopsy done that confirmed adenocarcinoma. She said that she is scheduled to see Oncology tomorrow to discuss about treatment plan. She continues to have right shoulder pain. She s aid that in the last few days she has been having worsening SOB with minimal exertion. She said that she continues to have hemoptysis that is the same since last admission. She has been using an albuterol inhaler and nebulizer treatments as often as every 4 hours, also without relief. She said that she developed a rash associated with itching in her chest, back and upper extremities in the last 3 days and was given benadryl with no help. She denies any headache, chest pain, lightheadedness, dizziness, nausea or vomiting, or urinary symptoms. CTA chest done in the ER showed bilateral pulmonary emboli. Admission Exam Per Admitting Provider Physical Exam: General- No acute distress Head- atraumatic Eyes- PERRL, EOMI, ENT- oropharynx clear Neck- supple, no JVD Lungs- clear to auscultation Heart- regular rhythm; no murmur Abdomen- normal bowel sounds, soft, nontender Extremities- no calf tenderness Neuro- alert, oriented x 3; PERRL, EOMI; no facial palsy; no dysarthria Skin- +rash in chest, arms and upper back area. 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 Discharge Exam Constitutional well developed, well nourished, + ill appearing and average body habitus Eyes PERRL, conjunctivae normal, anicteric sclerae ENMT external ear and nose normal, oropharynx normal Neck trachea midline, no thyromegaly Respiratory + respiratory distress (Mild to moderate shortness of breath at rest) and + cough; no retractions Auscultation: + diminished lung sounds and + crackles (Occasional crackles at the bases) Cardiovascular Rate/Rhythm: regular rate, regular rhythm and + tachycardic Heart Sounds: normal S1 and normal S2; no murmur Extremities: + edema (Trace edema bilaterally) Gastrointestinal (Abdomen) Inspection/Auscultation: normal bowel sounds; abdomen not distended Percussion/Palpation: abdomen soft; abdomen nontender Lymphatic no cervical or axillary lymphadenopathy Discharge Data Allergies Allergy/AdvReac Type Severity Reaction Status Date / Time bee venom protein (honey bee) Allergy Severe Anaphylaxis Unverified 07/23/21 09:40 acetaminophen Allergy Unknown vomiting Verified 07/23/21 09:40 Consultations 07/23/21 11:15 ED Decision to Admit Stat 07/25/21 07:43 Consult Pulmonology Routine 07/25/21 07:52 Consult Radiation Oncology Routine Ordered Studies 07/23/21 08:19 CT angio chest PE protocol Stat 07/25/21 03:10 CT chest diagnostic wo con Urgent 07/26/21 CT guide rad therapy chest Routine Diabetes Follow up Diabetes Follow-up Needed for Newly Diagnosed Diabetes Hospital Course (1) Bilateral pulmonary embolism: Present on admission with worsening SOB with minimal exertion Risk factors: Adenocarcinoma of the Right Lung with Met to liver and brain CTA chest showed bilateral pulmonary emboli. Interval progression of the mediastinal/right hilar large infiltrative mass with progressive moderate to severe narrowing of the superior vena cava. Progressive groundglass airspace opacities within the right lung. This could be due to a postobstructive pneumonitis or superimposed pulmonary infarcts. Continue heparin drip since pt has been having hemoptysis Echo showed no RV strain Case discussed with Oncology Dr. Medrano and agreed with the IV heparin then consider to transition to Eliquis on discharge Continue monitor H/H due to ongoing hepmotysis Will need a repeat CT chest in 4 to 6 weeks for follow up of possible pulmonary infarct Clinically a little better today-has cough but no hemoptysis Remains stable and denies any chest pain Clinically much better and will put on Eliquis on discharge We will start Eliquis and DC heparin (2) Shortness of breath: Secondary to pulmonary embolism and CT of the lung Shortness of breath is mild to moderate We will continue oxygen as needed We will get PT and OT evaluation-recommended home as per PT evaluation Denies any shortness of breath at rest PT and OT recommended home Passed to a stable to saturation test (3) Brain metastases: Has metastatic disease and metastasis to brain without any acute confusion or edema in the brain (4) Metastatic disease: Adenocarcinoma of the Lung with Met to liver and brain We will continue radiation treatment as per the radiation oncologist We will see her oncologist as an outpatient (5) Lung mass: Recently diagnosed few months ago with biopsy showed adenocarcinoma CT chest showed Interval progression of the mediastinal/right hilar large infiltrative mass with progressive moderate to severe narrowing of the superior vena cava. However, no evidence for SVC obstruction at this time. She had an appointment with Oncology today to discuss about treatment option Dr. Medrano was informed about the patient is admitting in the hospital Dr. Medrano said that he would review her chart Will need outpatient follow Has been getting radiation treatment from [facility] oncology service Did have first dose of radiation therapy yesterday and will get another dose today She got the second dose of radiation yesterday and like to have more on Saturday Discharge home this afternoon (6) Hyperglycemia: Newly diagnosed DM Possible related to diabetes (Possible worsening due to recent steroid therapy )\ Hba1c 8.7 today On lantus and insulin sliding scale while in the hospital Will consider to start on metformin on Discharge Continue monitor BS and cover as per sliding scale We will decrease the dose of steroid as advised (7) Elevated troponin: Mostly related to PE Troponin on admission 0.102, then trending down to 0.08 Denies any chest pain EKG showed no acute ischemic changes Pt was started on heparin drip due to evidence of PE on CTA chest ECHO showed no LV wall motion abnormality and no RV strain noted Clinically stable without any cardiac symptoms Questionable Pneumonitis CTA chest showed progressive groundglass airspace opacities within the right lung. 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 Keep taking Eliquis as advised-10 mg twice daily for 7 days then 5 mg twice daily to continue until changed by your oncologist Please keep appointment with your primary care provider Radiation oncology well continue to radiate as an outpatient from tomorrow [facility] oncology service will give you a call for an appointment with Dr. Medrano Pending Studies at Discharge: No Stand-Alone Forms: My [facility], Smoking Cessation Medications and DC Order Prescriptions: New amoxicillin-pot clavulanate [Augmentin] 875-125 mg Tablet 1 tab PO BIDM 2 Days Qty: 4 RF: 0 Eliquis 5 mg Tablet 10 mg PO UD 30 Days Qty: 60 RF: 0 prednisone 10 mg Tablet 15 mg PO UD Qty: 30 RF: 0 oxycodone 5 mg Tablet 5 mg PO Q6H PRN (Reason: pain) 5 Days Qty: 15 RF: 0 benzonatate [Tessalon Perles] 100 mg Capsule 100 mg PO TID PRN (Reason: cough) 10 Days Qty: 30 RF: 0 Lactinex 1 million cell tablet,chewable 1 tab PO BID Qty: 20 RF: 0 Continued epinephrine 0.3 mg/0.3 mL Auto-Injector 0.3 mg IM Q4H Qty: 0 RF: 0 albuterol sulfate 90 mcg/actuation HFA aerosol inhaler 2 inh inhalation QID RF: 0 Discontinued ibuprofen 200 mg Tablet 400 mg PO Q6H PRN (Reason: Pain) RF: 0 Discharge Orders: Discharge Order (Routine); Ordered 07/31/21 Ordered By: Fabio Ruiz Admission Data Admit Date/Time: 07/23/21 12:31 Attending Provider: Fabio Ruiz Admit Provider: Alysia Najera Primary Care Provider: PCP,NO Other Providers: Alysia Najera ; Godfrey Ponce ; Danielle Houston ; Victorina Medrano ; Toi Daniels Other Interventions: Discharge Summary Assessment (RN) Last Done: 07/31/21 15:26
== END 2021-07-31 15:30 | disposition home or self-care (01) | DRG 208 ==
LOC: ED 07:35 → SUATTDRO 12:31 → 2W 12:31

== ENCOUNTER 2021-08-02 16:03 | Inpatient (IN) ==
[2021-08-02 16:17] VITALS: TEMP 98.2
[2021-08-02 17:14] LABS: Basophils # (auto) 0.01 K/uL (0-0.2); Basophils % (auto) 0.1 %; Eosinophils # (auto) 0.48 K/uL (0-0.5); Eosinophils % (auto) 2.7 %; Hematocrit (blood only) 27.6 % (37-47); Hemoglobin 9.1 g/dL (12.0-16.0); Immature Granulocytes # (auto) 0.22 K/uL (0.00-0.02); Immature Granulocytes % (auto) 1.2 %; Lymphocytes # (auto) 0.61 K/uL (1.2-3.4); Lymphocytes % (auto) 3.4 %; Mean Corpuscular Hemoglobin 31.4 pg (25-34); Mean Corpuscular Volume 95.2 fL (80-100); Mean Platelet Volume 11.2 fL (7.4-10.4); Monocytes # (auto) 1.38 K/uL (0.11-0.59); Monocytes % (auto) 7.7 %; Neutrophils # (auto) 15.27 K/uL (1.4-6.5); Neutrophils % (auto) 84.9 %; Platelet Count 175 K/uL (130-400); RDW Coefficient of Variation 15.3 % (11.5-14.5); RDW Standard Deviation 50.8 fL (36.4-46.3); White Blood Count 17.97 K/uL (4.8-10.8)
[2021-08-02] MEDS ORDERED: MIDAZOLAM HCL 5 MG/ML VIAL IV ONE (17:22)
[2021-08-02] MEDS ORDERED: fentaNYL citrate 100 MCG/2 ML VIAL IV ONE (17:22)
[2021-08-02] MEDS ORDERED: ETOMIDATE 2 MG/ML 20 ML VIAL IV ONE (17:22)
--- NOTE | 2021-08-02 17:35 | History & Physical Report ---
Date of Service August 02, 2021 Assessment & Plan (1) Bilateral pulmonary embolism: Plan: - Admit to med surg with tele for observation -CTA chest from last admission showed bilateral pulmonary emboli. Interval progression of the mediastinal/right hilar large infiltrative mass with progressive moderate to severe narrowing of the superior vena cava. Progressive groundglass airspace opacities within the right lung. This could be due to a postobstructive pneumonitis or superimposed pulmonary infarcts. - Eliquis 5 mg BID for anticoagulation - Echo showed no RV strain - Previously case discussed with Oncology Dr. Medrano and agreed with the IV heparin then consider to transition to Eliquis - Consult palliative care - monitor H/H due to ongoing hemoptysis - Re-eval for O2 at home on discharge, did not qualify during last stay. - Will need a repeat CT chest in 4 to 6 weeks for follow up of possible pulmonary infarct - was started on augmentin BID for possible pneumonitis - continue - Cont incentive spirometry and flutter therapy (2) 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: Plan: - Recently diagnosed few months ago with biopsy showed adenocarcinoma - CT chest showed Interval progression of the mediastinal/right hilar large infiltrative mass with progressive moderate to severe narrowing of the superior vena cava. However, no evidence for SVC obstruction at this time. - Follows with Dr. Medrano with heme/onc as outpatient - Has been getting radiation treatment from [facility] oncology service, today she had radiation therapy, consult for ongoing therapy (3) Brain metastases: Plan: - Has metastatic disease and metastasis to brain without any acute confusion or edema in the brain - Cont prednisone 5 mg daily for reduced dosing (4) Hyperglycemia: Plan: - Newly diagnosed DM - Possible related to diabetes (Possible worsening due to recent steroid therapy ) - Hba1c 8.7 - On lantus and insulin sliding scale while in the hospital - Pt requests regular diet - will allow for now - Consider glycemic pharmacy with steroid use, however this is reduced as mentioned above. DVT ppx: teds scds, Eliquis twice daily CODE: Full Dispo: From home, likely to remain in the hospital x 1 day Plan: 55-year-old female with recent diagnosis of lung cancer with metastasis to liver and brain who was recently admitted for worsening shortness of breath and was found to have bilateral pulmonary embolism and was discharged few days ago with Eliquis came back 08/02 with complaint of weakness and shortness of breath. Will observe her overnight and trend troponin. Oxygen as needed. Continue with antibiotic. Upon examination: GENERAL: Alert and oriented x3. NAD, on 2L. HEENT: No pallor, no icterus. Pupils equal, round and reactive to light. Oral mucosa moist. NECK: No JVD, no neck masses. HEART: S1 and S2 heard. Regular rate and rhythm. No murmur, no gallop. RESPIRATORY SYSTEM: Normal AP diameter. No accessory muscle use. No wheezing, right lung crackles appreciated. ABDOMEN: Soft, bowel sounds present, nontender, no distention. CENTRAL NERVOUS SYSTEM: Alert and oriented x3. No facial droop. Speech is clear. Obeys simple commands. Moves extremities. EXTREMITIES: No edema, no erythema seen. I have seen and examined the patient and have discussed the case with the provider above. I agree with the assessment and plan as stated. History of Present Illness Primary Care Provider: Raciel Hi MD This is a 55-year-old female with recent diagnosis of lung cancer with metastatic disease to the liver and brain who presents the emergency department for evaluation of worsening SOB. Pt was recently admitted at [facility] last month for right right posterior shoulder pain and was found to have a mass in RUL lung mass with metastases to Liver and brain with brain edema. She was transferred to a tertiary care to [facility]. She had biopsy done that confirmed adenocarcinoma. She was admitted here from 07/23/21 until yesterday, when she was discharged for radiation therapy. Previously CTA chest showed bilateral pulmonary emboli. Interval progression of the mediastinal/right hilar large infiltrative mass with progressive moderate to severe narrowing of the superior vena cava. Progressive groundglass airspace opacities within the right lung. This could be due to a postobstructive pneumonitis or superimposed pulmonary infarcts. She was started on a heparin gtt during last admission and transitioned to eliquis on 08/01/21 upon discharge. Today she presented to radiation as an outpatient, however she felt her shortness of breath worsened, and upon discharge yesterday did not qualify for home O2. She is still coughing up hemoptysis nearly every time she coughs. Patient does not feel her breathing is any better today compared to when she left. She has taken 1 dose of Augmentin which she was sent home on for presumed pneumonitis. She denies any lightheadedness, dizziness, chest pain. Pt is agreeable to seeing palliative care during our visit. She requests a regular diet versus a diabetic one. At home she resides with her son, and daughter in law. Allergies Allergy/AdvReac Type Severity Reaction Status Date / Time bee venom protein (honey bee) Allergy Severe Anaphylaxis Unverified 08/02/21 17:54 acetaminophen Allergy Unknown vomiting Verified 08/02/21 17:54 Home Medications Medication Instructions Recorded Confirmed Type epinephrine 0.3 mg/0.3 mL 0.3 mg IM Q4H PRN #0 12/01/15 08/02/21 History injection, auto-injector albuterol sulfate 90 mcg/actuation 2 inh INHALATION QID 07/23/21 08/02/21 History aerosol inhaler Lactobacillus acidoph-L.bulgaricus 1 tab PO BID #20 tab 07/31/21 08/02/21 Rx 1 million cell chewable tablet (Lactinex) apixaban 5 mg tablet (Eliquis) 10 mg PO UD 30 Days #60 tab 07/31/21 08/02/21 Rx benzonatate 100 mg capsule 100 mg PO TID PRN 10 Days #30 cap 07/31/21 08/02/21 Rx (Tessalon Perles) oxycodone 5 mg tablet 5 mg PO Q6H PRN 5 Days #15 tab 07/31/21 08/02/21 Rx prednisone 10 mg tablet 15 mg PO Q OTHER DAY 08/02/21 08/02/21 History Past Med/Surg History Medical History 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 Brain metastases Lung mass Metastatic disease Tobacco abuse Quit smoking June 2021 Surgical History History of History of carpal tunnel surgery Family History Father Lung cancer Social History Smoking Status: Former smoker Tobacco Type: Cigarettes Cigarettes Per Day: 10; Hx Alcohol Use: Yes Alcohol type: beer Alcohol Intake Frequency: 2-4 x/Month Hx Substance Use: Yes Last Used Substance: Days (ago) Preferred Language: Solomon Islander Communication Ability: Effective Dairy Manager Required: No Beliefs That Will Affect Care: None Current Living Situation: Family Feels Safe at Home: Yes Assistive Devices: Denture - Upper, Denture - Lower and Glasses Review of Systems Review of Systems: Constitutional: No fever, sweats or chills. + generalized fatigue Eyes: No diplopia, no worsening or blurred vision ENT: normal hearing, no trouble swallowing Respiratory: + cough, +sputum, + hemoptysis, + dyspnea at rest and on exertion Cardiovascular: No chest pain, tightness or palpitations Abdomen: No pain, nausea, vomiting, diarrhea or constipation Musculoskeletal: No joint pain, calf pain, no swelling Neurologic: No weakness, numbness/tingling, or balance problems Psychiatric: No anxiety or depression Skin: No rash or itch Physical Exam Physical Exam: General: awake, alert, mild distress Head: Normocephalic, atraumatic ENT: PERRL, EOMI, no pharyngeal exudate, mucous membranes moist Chest: Diffuse coarse breath sounds, + crackles, + audible wheeze, on 1 L via NC, + hemoptysis Cardiac: Sinus tach, no murmur, no JVD, normal peripheral pulses, good capillary refill Abdominal: NABS x 4 quadrants, soft, nondistended, nontender to palpation, no rebound or guarding Extremities: Normal inspection, + peripheral trace edema bilaterally, no erythema, calfs nontender to palpation Psych: Normal mood and affect Neuro: AAO x 3, strength intact bilaterally and rated 5/5, no motor deficits, speech is clear, no peripheral sensory deficits Results & Data Results & Data ([facility]) Vital Signs (Past 12 Hours) Vital Signs Temp Pulse Pulse Resp BP BP Pulse Ox 08/02/21 17:07 116 H 24 143/72 H 98 08/02/21 17:06 98 08/02/21 16:13 36.8 C 114 H 18 135/84 95 ECG Additional Comments: 02-AUG-2021 17:00:15 [facility]-EDSTAT ROUTINE RETRIEVAL Poor data quality, interpretation may be adversely affected Sinus tachycardia with Premature atrial complexes Otherwise normal ECG When compared with ECG of 23-JUL-2021 08:56, Premature atrial complexes are now Present 25mm/s 10mm/mV 150Hz 9.0.9 12SL 241 FOUZIA: 13 Unconfirmed Vent. rate 117 BPM NC interval 120 ms QRS duration 82 ms QT/QTc 324/451 ms Code Status & VTE Plan Code Status Full code VTE Prophylaxis Plan VTE Prophylaxis will be ordered: Yes
[2021-08-02 17:47] LABS: Alanine Aminotransferase 88 U/L (12-78); Albumin Globulin Ratio 0.7 (0.9-2); Albumin Level 2.6 gm/dl (3.4-5.0); Alkaline Phosphatase 148 U/L (45-117); BUN Creatinine Ratio 16.3 (10-20); Bilirubin,Total 0.9 mg/dl (0.2-1); Blood Urea Nitrogen 14 mg/dl (7-18); Calcium 8.3 mg/dl (8.5-10.1); Carbon Dioxide 24 mmol/L (21-32); Chloride 101 mmol/L (98-107); Creatinine Clr Calc Pharmacy 60.3 ml/min; Est GFR (African American) 84.5 ml/min; Est GFR (Non-African American) 72.9 ml/min; Globulin 3.7 gm/dl (2.5-4.0); Glucose 307 mg/dl (70-99); Sodium 132 mmol/L (136-145); Total Protein 6.3 gm/dl (6.4-8.2); Troponin I 0.409 ng/ml (0-0.045)
[2021-08-02] MEDS ORDERED: PHARMACY GLYCEMIC MGMT CONSULT PRN (18:19)
[2021-08-02 18:36] LABS: Potassium 4.4 mmol/L (3.5-5.1)
[2021-08-02] MEDS ORDERED: APIXABAN 5 MG TABLET PO SCH (21:00)
[2021-08-02] MEDS ORDERED: INSULIN ASPART 100 UNITS/ML 3 ML PEN SC STA (21:34)
[2021-08-02] MEDS ORDERED: GLUCOSE 40% GEL 15 GM TUBE PO PRN (21:45)
[2021-08-02] MEDS ORDERED: DEXTROSE 50% 50 ML SYRINGE IV PRN (21:45)
[2021-08-02] MEDS ORDERED: GLUCAGON FOR INJ 1 MG VIAL IM PRN (21:45)
[2021-08-02] MEDS ORDERED: CARBOHYDRATES FOR HYPOGLYCEMIA PO PRN (21:45)
[2021-08-02] MEDS ORDERED: GLUCOSE 10 TABS/TUBE PO PRN (21:45)
[2021-08-02] MEDS ORDERED: FUROSEMIDE 40 MG/4 ML VIAL IV ONE (23:13)
[2021-08-02] MEDS ORDERED: METOPROLOL TARTRATE 1 MG/ML VIAL IV STA (23:23)
[2021-08-02] MEDS ORDERED: methylPREDNISolone 125 MG/2 ML VIAL ONE (23:26)
[2021-08-02] MEDS ORDERED: PIPERACILL/TAZOBAC CONSULT ACTIVE PRN (23:26)
[2021-08-02] MEDS ORDERED: METOPROLOL TARTRATE 1 MG/ML VIAL IV ONE (23:27)
--- NOTE | 2021-08-02 23:35 | Communication Note ---
Date of Service: August 02, 2021 Overnight developments : 08/02/21 1110 PM Code purple called. As per RN, patient noted to be in respiratory distress upon arrival at med telemetry floor. Respiratory rate 30s, cardiac rate 130s to 140s, labile BP as per RN. Patient with hemoptysis complaints. BiPAP initiated by FINANCIAL SERVICES SPECIALIST. PPE Anxious, respiratory distress BiPAP in place Rhonchi right greater than the left Tachycardic Chest x-ray as per my interpretation right upper lobe opacity/infiltrate AP Respiratory distress secondary to HCAP (recent confinement)/postobstructive pneumonia (hx lung malignancy) PCU transfer Supplemental O2 Follow ABG Solu-Medrol, nebs 1 dose now Change Augmentin to Zosyn 08/03/21 1215AM Updated by EYELET OPERATOR of patient decreased responsiveness and extremely labored respiration. Patient transferred to ICU after coordination with provider sterilization tech. Patient [id number] (first contact), Ms. Kandi Zhang, updated of developments and patient's critical condition. I told Ms. Zhang that CPR or intubation to facilitate mechanical ventilation in the event of further clinical deterioration will likely be detrimental to patient in consideration of her metastatic lung malignancy. CODE STATUS de- escalated to DNR by patient [id number]. She requested me to contact clari valiente's son (Mr. Ravi Bueno, [phone]) to update him of patient status. No answer, voice message left on Mr. Bueno's phone inbox. I subsequently contacted Mr. Pritesh Dos Santos (ICU provider sterilization tech) to update him of CODE STATUS change. Mr. Dos Santos notified me that patient had hemoptysis while on BiPAP prior to him evaluating patient at PCU. Subsequent emergent intubation and fiberoptic bronchoscopy done at ICU. ICU provider recommended contacting patient's family to ask them to come to the hospital if possible to discuss goals of care, possible terminal wean for the dying patient. Patient [id number] contacted again and updated of developments. She will come to hospital along with other family members.
[2021-08-02] MEDS ORDERED: XOPENEX/ATROVENT 1.25mg/0.5MG NEB COMBO NEB STA (23:40)
[2021-08-02] MEDS ORDERED: IPRATROPIUM BROMIDE NEB SOLN 0.02% 2.5 ML VIAL INH STA (23:44)
[2021-08-02] MEDS ORDERED: LEVALBUTEROL 1.25MG/0.5ML NEB INH STA (23:44)
[2021-08-02] MEDS ORDERED: PIPERACILLIN/TAZOBACTAM 4.5 GM in DEXTROSE 5% 100 ML IV ONE (23:45)
[2021-08-02] MEDS ORDERED: methylPREDNISolone 40 MG in SYRINGE 0 ML IV ONE (23:45)
[2021-08-02 23:53] LABS: iSTAT Arterial Blood Gas HCO3 21 meg/L (19-24); iSTAT Arterial Blood Gas pCO2 37 mmHg (35-46); iSTAT Arterial Blood Gas pH 7.37 (7.35-7.45); iSTAT Arterial Blood Gas pO2 > 420 mmHg (80-95); iSTAT Carbon Dioxide 23 mmol/L (24-31); iSTAT Hematocrit 28 % (37-47); iSTAT Hemoglobin 9.5 g/dl (12.0-16.0); iSTAT Potassium 5.3 mmol/L (3.3-5.0); iSTAT Sodium 131 mmol/L (135-144)
[2021-08-03] MEDS ORDERED: SODIUM CHLORIDE 0.9% 1000ML 1,000 ML IV ONE (00:38)
[2021-08-03] MEDS ORDERED: RAPID SEQUENCE INDUCTION BAG ONE (00:41)
[2021-08-03] MEDS ORDERED: TXA 10% Non-IV Routes 100 MG/ML VIAL NEB ONE (00:45)
[2021-08-03] MEDS ORDERED: NOREPINEPHRINE/D5W 8 MG/508 ML BAG IV SCH (00:45)
[2021-08-03] MEDS ORDERED: STAT IV Infusion **Titration per Protocol STA ×2 (00:45→01:09)
[2021-08-03] MEDS: NOREPINEPHRINE/D5W 8 MG/508 ML IV ONE ×2 (01:05→05:14)
[2021-08-03] MEDS ORDERED: TXA 10% Non-IV Routes 100 MG/ML VIAL TOP ONE (01:09)
[2021-08-03] MEDS ORDERED: MoRPHine SULF/NSS 250 MG/250 ML BTL IV SCH (01:15)
--- NOTE | 2021-08-03 01:24 | Procedure Note ---
Procedure Note Date of Service August 03, 2021 Note Procedure date: Noted above Procedure: fiberoptic bronchoscopy Pre-procedure indication: Hemoptysis Post-procedure Diagnosis: same as above Prior to Procedure: Informed Consent: Emergent consent implied. Attending Staff: Jd Abad DO Resident/APC: Lico Dos Santos Skin Prep: Not applicable Anesthesia: None The identity of the patient was confirmed and a bedside time out was performed. Description of Procedure: Fiberoptic bronchoscopy was performed via endotracheal tube after emergent intubation for acute respiratory failure and acute encephalopathy. There was significant pulmonary hemorrhage during emergent intubation and we proceeded with fiberoptic bronchoscopy for possible placement of an endobronchial erika. There was excessive dynamic airway collapse greater than 75% of the lumen of the bilateral proximal airways of the right and left mainstem bronchi. There appeared to be mass protruding from the right upper lobe with a very small slow ooze from the apparent mass. Bronchioalveolar lavage was not performed. Findings included: Erythematous airways and right upper lobe mass. Brisk bleeding was not noted there was slow oozing from the right upper lobe. During this time we were contacted that family wished to transition towards comfort measures and she is DNR/DNI in event of cardiac arrest. Family is coming to the bedside. Complications: None Specimens: None Estimated blood loss: Zero Coding CPT Codes Pulmonary/Thoracic - Pulmonary and Thoracic: 79049 Bronchoscopy, clear airways ([id number]) [place] Procedure Codes (Charges) Pulmonary/Thoracic Procedure 1: Pulmonary and Thoracic: [id number] Bronchoscopy, clear airways
--- NOTE | 2021-08-03 02:12 | Critical Care Consultation ---
Date of Consultation August 03, 2021 Assessment & Plan (1) Admitted to intensive care unit: Reason Critically Ill: 55-year-old female with new diagnosis of metastatic lung cancer with abrupt onset of respiratory distress in the setting of pulmonary hemorrhage. I was contacted by my hospitalist colleague as the patient had reportedly developed cl mopped assist while on BiPAP. The patient was a CODE PURPLE earlier in the evening. Patient was apparently in respiratory distress and requiring BiPAP at that time. She was reportedly altered and found to be hypotensive and tachycardic. She was moved to the telemetry floor for closer monitoring, however the patient had developed return of profound hypotension and worsening onset of cl hemoptysis. Upon my assessment at bedside, the patient is completely obtunded and not responsive to painful stimuli. I did perform sternal rub and the patient did not respond. Patient was with BiPAP mask in place and significant amounts of bright red blood were noted in the BiPAP mask. Patient was noted to be hypotensive with systolics in the 70s. Bedside nurses were performing manual blood pressures at that time. At this point, the patient remained a full code. Thankfully, we were able to immediately transport the patient to the ICU where the team was waiting with appropriate respiratory equipment to perform endotracheal intubation as well as central line and arterial lines. Given the patient's significant obtunded state, significant oxygen requirement with BiPAP, and inability to clear bloody secretions, decision was made to emergently intubate the patient for airway protection and further assessment of cl mopped assist. Emergency colleague did present at bedside, however I was successfully able to intubate the patient with first pass without the utilization of medications as the patient was severely obtunded. Chest x-ray confirmed appropriate endotracheal tube placement. Orders were placed for nebulized TXA. Immediately after intubation, I did contact my attending physician and explained concerning scenario given primary diagnosis of lung adenocarcinoma with pulmonary hemorrhage. Dr. Abad was in route to the ICU for planned bronchoscopy. Shortly after intubation and bronchoscopy, we were contacted by hospitalist who had reached out to the patient's point of contact. Given the patient's rapid decline, they had elected the patient become DNR/DNI status. Unfortunately, given the patient's critical state and need for airway protection, the patient had already been intubated in appropriate fashion secondary to the patient's extenuating circumstances. Family was contacted again and the were provided permission to present at bedside for further discussions with ongoing management as goals of care were for transitioning patient to comfort per their previous requests. I did meet with the patient's son and [id number] at bedside. Family dynamic is complicated as her other son is incarcerated and unable to be reached for greater than 24 hours. I had a lengthy conversation with family at bedside explaining change in status as well as need for intubation. Unfortunately, it was obvious that the patient had ongoing significant pulmonary hemorrhage with ongoing bright red blood suctioned from the ET tube. We did discuss options moving forward including attempt to correct bleeding including repeat bronchoscopy with bronchial erika, further imaging modalities including CT he ad/brain as well as CTA of the chest, consideration for transfer to [place], or proceeding with comfort measures. After extensive conversation with multiple family members, everyone agreed at bedside that they would not wish for the patient to suffer any further. I did offer performing advanced imaging modalities including CT of the head/brain to evaluate possible intracranial changes as well as CT of the chest to evaluate for location of pulmonary hemorrhage. We did also discuss that even in the event that we found a possible source of the bleeding in the lungs, she would still be with lung cancer as well as metastases to the liver and brain which would require ongoing radiation and likely chemotherapy. Family member did present in report that he had driven her to [facility] and during this visit, she did not seem interested in ongoing management, but had been agreeable to be treated locally. I did express to them that I am unable to say definitively that there is not something that we may be able to correct, unfortunately without advanced imaging modalities, I certainly would be unable to address any acute issues. Her son understands this and reports that he is adamant that he would not wish for his mother to go through any other imaging studies or procedures including central line or arterial line. At this point, he requests that we continue with current care including vasopressors and ventilation, however he does not wish for escalation of care. He and family do request that we reach out to clergy prayed with the family. Father Josemanuel Vuong of [facility] was kind enough to return our call and present to bedside to pray with the family. At this point, after extensive conversation with family, all family members are present and agree with no escalation of care at this point. They do not wish for any further imaging studies. They do not wish for any further procedures. They do not wish for evaluation for transfer. At this point, they are requesting that the patient be made comfortable with intent for terminal extubation with focus on comfort of passing after she has been prayed over by glass forming crew member. I have personally spent 65 minutes of critical care time in the direct management of this patient. This is a life/limb threatening event. This includes time spent evaluating patient, direct bedside care, chart review, placing orders, interpretation of diagnostic studies, discussion with consultants, patient, and family members, as well as other required patient management activities. This time is exclusive of all separately billable procedures, and teaching time and separate from and in addition to any other critical care service time. Thank you for allowing us to participate in the care of this patient. Please refer to my attending physician's documentation for any further recommendations. (2) Pulmonary hemorrhage: (3) 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: (4) Bilateral pulmonary embolism: (5) Altered mental status: (6) Hypotension: (7) Hyperglycemia: (8) Elevated troponin: (9) Hemoptysis: (10) Metastatic disease: (11) Brain metastases: History of Present Illness Attending Physician: Zack Rosario MD History of Present Illness Patient is a 55-year-old male who was recently diagnosed with lung CA with metastatic spread to the liver and brain. Patient presented to the emergency department with shortness of breath and ongoing hemoptysis. During recent hosp italization, the patient was found to have a large RIGHT upper lobe lung mass with metastatic spread. She had associated brain edema with the brain metastases. The patient underwent brain and chest palliative radiation therapy. Patient was transferred to [facility] where she underwent biopsy with confirmation of adenocarcinoma. In addition to the cancer diagnosis, the patient was found to have bilateral pulmonary emboli with compression of the SVC as well. Patient had previously been on a heparin drip, however she was transitioned to Eliquis at home. Given the worsening shortness of breath and hemoptysis, the patient presented to the emergency department for ongoing management. Earlier in the evening, the patient was made a CODE PURPLE secondary to worsening respiratory status and concerns for altered mental status. I did initially present to the room, however attending physician did assume care at that point. I did receive a call later that the patient, who had been on BiPAP, is now having significant hemoptysis into her BiPAP mask. Additionally, she was noted to be profoundly hypotensive with blood pressures in the 60s. She remains tachypneic and tachycardic. She is essentially unresponsive on the BiPAP. Upon my assessment in PCU, the patient is obtunded on BiPAP. She is tachypneic with rhythmic breathing, however she does not respond to painful stimuli. Her BiPAP mask is grossly covered with bright red blood. She remains profoundly hypotensive. I received consult from hospitalist. At that point, the patient was immediately taken to the ICU for intubation and likely proceeding with bronchoscopy versus advanced airway for bleeding management. Patient listed FULL CODE at the time of my assessment. She is unable to provide historical information. Allergies Allergy/AdvReac Type Severity Reaction Status Date / Time bee venom protein (honey bee) Allergy Severe Anaphylaxis Unverified 08/02/21 17:54 acetaminophen AdvReac Unknown vomiting Verified 08/03/21 00:21 Home Medications Medication Instructions Recorded Confirmed Type epinephrine 0.3 mg/0.3 mL 0.3 mg IM Q4H PRN #0 12/01/15 08/02/21 History injection, auto-injector albuterol sulfate 90 mcg/actuation 2 inh INHALATION QID 07/23/21 08/02/21 History aerosol inhaler Lactobacillus acidoph-L.bulgaricus 1 tab PO BID #20 tab 07/31/21 08/02/21 Rx 1 million cell chewable tablet (Lactinex) apixaban 5 mg tablet (Eliquis) 10 mg PO UD 30 Days #60 tab 07/31/21 08/02/21 Rx benzonatate 100 mg capsule 100 mg PO TID PRN 10 Days #30 cap 07/31/21 08/02/21 Rx (Tessalon Perles) oxycodone 5 mg tablet 5 mg PO Q6H PRN 5 Days #15 tab 07/31/21 08/02/21 Rx prednisone 10 mg tablet 15 mg PO Q OTHER DAY 08/02/21 08/02/21 History Patient History Medical History 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 Brain metastases Lung mass Metastatic disease Tobacco abuse Quit smoking June 2021 Surgical History History of History of carpal tunnel surgery Family History Father Lung cancer Social History Smoking Status: Current every day smoker Tobacco Type: Cigarettes Cigarettes Per Day: 10; Hx Alcohol Use: Yes Alcohol type: beer Alcohol Intake Frequency: 2-4 x/Month Hx Substance Use: Yes Last Used Substance: Days (ago) Preferred Language: Belarusian Communication Ability: Effective [employer] Salesperson Required: No Beliefs That Will Affect Care: None Current Living Situation: Family Feels Safe at Home: Yes Assistive Devices: Glasses Review of Systems Review of Systems: Unobtainable due to reduced consciousness Physical Exam Physical Exam: VITAL SIGNS - Vital signs and nursing notes were reviewed. GENERAL - 55-year-old female appearing her stated age who is in significant respiratory distress and active extremis. Obtunded and does not respond to painful stimuli. HEAD - NC/AT. EYES - PERRL bilaterally. Sclera anicteric. EARS - No deformities of external structures noted on gross examination bilaterally. N NOSE - Midline and without cyanosis. No epistaxis or purulent drainage noted. MOUTH/OROPHARYNX - Significant amounts of hemoptysis noted in the oral cavity. NECK - Supple to palpation. LUNGS - Severely tachypneic. Coarse breath sounds noted throughout. CARDIAC - Tachycardic without murmur, rub, or gallop. No response to sternal rub. ABDOMEN - Abdominal contour obese without pulsations or visible masses. BS not noted on brief exam. EXTREMITIES - No clubbing or peripheral cyanosis. No pretibial edema present. Dopplerable pulses. NEUROLOGIC - Obtunded. Tachypneic with rhythmic breathing pattern. Not responsive to painful stimuli. Unable to fully assess otherwise secondary to obtunded state. Results & Data Results & Data ([facility]) Vital Signs (Past 12 Hours) Vital Signs Temp Pulse Pulse Resp BP BP Pulse Ox 08/03/21 00:25 125 H 35 H 102/30 L 100 08/03/21 00:15 134 H 34 H 99 08/03/21 00:11 126 H 35 H 85/30 L 100 08/03/21 00:07 127 H 35 H 106/50 L 100 08/02/21 23:54 133 H 33 H 100 08/02/21 23:34 47 L 34 H 98 08/02/21 22:46 121/94 08/02/21 21:00 115 H 22 162/108 H 96 08/02/21 19:00 112 H 22 148/76 H 94 08/02/21 17:07 116 H 24 143/72 H 98 08/02/21 17:06 98 08/02/21 16:13 36.8 C 114 H 18 135/84 95 Coding Level of Care Code Critical Care 1st 30-74 mins Diagnoses Admitted to intensive care unit Z78.9 Pulmonary hemorrhage R04.89 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 C34.90; C78.7 Bilateral pulmonary embolism I26.99 Altered mental status R41.82 Hypotension I95.9 Hyperglycemia R73.9 Elevated troponin R77.8 Hemoptysis R04.2 Metastatic disease C79.9 Brain metastases C79.31 Time Spent (min) 65
--- NOTE | 2021-08-03 02:12 | Procedure Note ---
Procedure Note Date of Service August 03, 2021 Note APC: Pritesh Dos Santos PA-C. Attending: Dr. Abad A time-out was completed verifying correct patient, procedure, site, positioning. Patient was evaluated and required intubation for respiratory failure in the setting of pulmonary hemorrhage. Sedative agent used: None Paralysis agent used: None Emergent consent was implied given patients rapidly declining clinical status and need for airway protection. The patient was prepared in the appropriate fashion. Given the patient's profound hypotensive state and obtunded state, I did feel it was necessary/appropriate to perform emergent endotracheal intubation with first view without providing medications to precipitate worsening hypotension/. The patient was easily ventilated using current BiPAP mask to achieve adequate oxygenation. I was able to visualize cords immediately using Glidescope. After moderate suctioning of significant amounts of bright red blood, A 7.5 Icelandic endotracheal tube was placed to 22 cm at the lip. The stylette was removed and balloon was inflated with 10mL of air. Appropriate Colorimetric change was appreciated. Bilateral breath sounds were heard without air sounds in the abdomen. Patient did receive 10 mg IV Etomidate immediately post intubation, however, we were able to obtain other sedation medications so we withheld paralytic s/p tube placement. Emergency colleague was summoned for backup, but patient was intubated on first pass without the use of sedation/paralytic. Post Intubation Chest X-ray confirms placement without pneumothorax. Patient tolerated the procedure well and there were no immediate complications. Coding CPT Codes Resuscitation - Resuscitation: 67028 Endotracheal Intubation, emergency ([id number]) [facility] Procedure Codes (Charges) Resuscitation Resuscitation: 22902 Endotracheal Intubation, emergency
[2021-08-03] MEDS ORDERED: ICU PROTOCOL FOR HYPERGLYCEMIA PRN (02:47)
[2021-08-03] MEDS ORDERED: LORazepam 0.5 MG/1 ML VIAL IV PRN (03:50)
[2021-08-03] MEDS ORDERED: LORazepam 1 MG/2 ML VIAL IV STA (03:50)
[2021-08-03] MEDS ORDERED: ATROPINE SULFATE 1% OP SOLN 5 ML BTL SL PRN (03:50)
[2021-08-03] MEDS ORDERED: ONDANSETRON INJ 2 MG/ML 2 ML VIAL IV PRN (03:50)
[2021-08-03] MEDS ORDERED: SCOPOLAMINE 1 MG TDSY TD SCH (04:00)
[2021-08-03] MEDS ORDERED: INSULIN ASPART 100 UNITS/ML 3 ML PEN SC SCH ×2 (04:00)
--- NOTE | 2021-08-03 05:07 | Communication Note ---
Date of Service: August 03, 2021 Patient was reassessed at multiple time to discuss situation with family. Family is now requesting to terminally extubate patient. Please see previous note. I did have discussion with family describing events to occur status post intubation. I did explain that I certainly cannot provide timeframe with my estimate of how long the patient would have, however in my best estimate, the patient will likely have hours to a day or 2. Family is focused on comfort and request that we continue the morphine drip for comfort. Titratable morphine drip had been running while intubated, however she was provided a bolus of morphine as she remained tachypneic with rhythmic breathing. She was provided 1 mg of Ativan for agitation just prior to extubation. Patient was compassionately extubated at 0440. Family remains at bedside. We will keep her in her current ICU room for now and see how she does during the next few hours. This will be reassessed by daylight staff. I did reach out to [facility] and provide update as well. Discussed case thoroughly with bedside nurse. Provided comfort and answered all of family's questions to the best of my capabilities. I have personally spent 34 minutes of critical care time in the direct management of this patient. This is a life/limb threatening event. This includes time spent evaluating patient, direct bedside care, chart review, placing orders, interpretation of diagnostic studies, discussion with consultants, patient, and family members, as well as other required patient management a ctivities. This time is exclusive of all separately billable procedures, and teaching time and separate from and in addition to any other critical care service time. Coding Level of Care Code Critical Care adeline mullinst'l 30 min Time Spent (min) 34
[2021-08-03] MEDS ORDERED: PIPERACILLIN/TAZOBACTAM 3.375 GM in DEXTROSE 5% 100 ML IV SCH (06:00)
--- NOTE | 2021-08-03 06:56 | Critical Care Progress Note ---
Date of Service August 03, 2021 Assessment & Plan (1) Pulmonary hemorrhage: Plan: Transition to comfort measures with palliative care stable for downgrade to medicine service Admission and Anticipated Discharge Date Admission Date: August 02, 2021 Subjective Overnight converted to comfort measures only and terminally extubated Physical Exam Physical Exam: General: Somnolent. nontoxic. Skin: Warm, dry, Head: Atraumatic Ears, nose, mouth and throat: airway patent Cardiovascular: Decreased peripheral perfusion Respiratory: no respiratory distress Gastrointestinal: Non distended Musculoskeletal: No deformity Results & Data Results & Data ([facility]) Vital Signs (Past 12 Hours) Vital Signs Pulse Pulse Resp BP BP Pulse Ox 08/03/21 04:36 140 H 144/75 H 100 08/03/21 04:29 143 H 129/96 100 08/03/21 04:14 144 H 145/62 H 100 08/03/21 03:59 144 H 158/96 H 100 08/03/21 03:44 145 H 143/76 H 100 08/03/21 03:29 146 H 137/89 100 08/03/21 03:14 146 H 139/72 100 08/03/21 02:59 148 H 131/90 100 08/03/21 02:45 148 H 135/83 100 08/03/21 02:31 151 H 33 H 100 08/03/21 02:25 146 H 100 08/03/21 02:17 148 H 100 08/03/21 01:29 151 H 131/62 08/03/21 01:15 138 H 100 08/03/21 00:25 125 H 35 H 102/30 L 100 08/03/21 00:15 134 H 34 H 99 08/03/21 00:11 126 H 35 H 85/30 L 100 08/03/21 00:07 127 H 35 H 106/50 L 100 08/02/21 23:54 133 H 33 H 100 08/02/21 23:34 47 L 34 H 98 08/02/21 22:46 121/94 08/02/21 21:00 115 H 22 162/108 H 96 08/02/21 19:00 112 H 22 148/76 H 94 Resident Activity Tracking Resident Involvement: Resident Care Provided Care Provided: Adult [facility] Medicine
[2021-08-03] MEDS: CHECK SCOPOLAMINE PATCH PLACEMENT SCH ×2 (08:00→16:20)
--- NOTE | 2021-08-03 08:32 | XRay Report ---
XR chest 1V portable INDICATION: MN ^s/p intubation . TECHNIQUE: Single frontal radiograph of the chest was obtained. Comparison: Comparison is made to chest one view 08/02/2021 FINDINGS: Interval placement of endotracheal tube which is approximately 2 cm from the michael. The cardiomedias tinal silhouette is normal. Interspace opacity in the right upper lobe is again noted. Again noted is elevation of the left hemidiaphragm. No evidence of pleural effusion or pneumothorax. IMPRESSION: 1. Endotracheal tube terminates 2 cm from the michael and can be withdrawn approximately 1 cm for imp roved positioning. 2. Stable right upper lobe opacity. ACT 112: Negative or not required by law. Electronically signed by: Edi Dubose M.D. 08/03/2021 8:31 AM
--- NOTE | 2021-08-03 08:33 | XRay Report ---
XR chest 1V portable CLINICAL HISTORY: dyspnea. code purple COMPARISON STUDY: August 02, 2021 at 11:17 hours FINDINGS: No definite pneumothorax is seen however evaluation is limited because right lung apex is obscured by patient's chin.. No pleural effusion. There is large right perihilar mass lesion is again seen. Previously seen opacities at the right lowe r lung are slightly improved since prior. Redemonstration of elevated left hemidiaphragm with atelectasis/infiltrate at the left base. Cardiomediastinal silhouette is within normal limits in size. No significant pulmonary vascular congestion.. Osseous structures: Degenerative changes of the spine. Gas-filled loops of bowel are seen within left upper quadrant on the elevated left hemidiaphragm. IMPRESSION: 1. Stable large right perihilar mass. Interval improvement of previously seen opacities within right lower lung. ACT 112: Negative or not required by law. The above report was generated using voice recognition software. It may contain grammatical, syntax o r spelling errors. Electronically signed by: Flora Otto DO 08/03/2021 8:32 AM
--- NOTE | 2021-08-03 09:10 | Hospitalist Progress Note ---
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 Presented to ED with SOB and ongoing hemoptysis. Patient required transfer to ICU for acute respiratory failure and was intubated. Overnight, had ongoing hemoptysis, hypotension and tachycardia. After extensive discussion between critical care provider and family, patient transitioned to comfort care. Appears comfortable on exam Receiving morphine at current rate of 5mg/hr Palliative care evaluated this morning - She is DNR with focus of care on comfort. Talked with family at bedside about what to expect. They asked about prognosis which is likely hours to a few days She will be moved to medical floor private room Patient seen in collaboration with Dr. Flanagan. Please see addendum. Admission and Anticipated Discharge Date Admission Date: August 02, 2021 Supervising Physician Co-Signing Physician Notes Patient is seen and examined at bedside. Family at bedside. Unable to obtain any history. Currently patient is on comfort measures only. On exam patient is obtunded, normocephalic atraumatic, increased respiratory effort, clear to auscultation, S1-S2, no murmur, no pedal edema, abdomen soft, nontender, neurological exam could not be performed. Continue comfort measures. Appreciate palliative care input. I personally reviewed the record. Patient is interviewed and examined at bedside. Patient's care is coordinated with Amelia Abbott PA-C. Please refer to the documentation above for details of patient's presentation and for discussion of other issues. Subjective Patient seen and examined in 107-1. Patient appears to be resting comfortably with family at bedside. Receiving morphine. Transitioned to comfort care overnight. Will be transferred to med/surg floor. Review of Systems Review of Systems: Unobtainable due to reduced consciousness Physical Exam Physical Exam: General Appearance: Appears comfortable, obtunded with family at bedside Head: normocephalic, atraumatic Eyes: normal inspection ENT: external ear and nose normal, oropharynx normal Neck: normal visual inspection, trachea midline, no thyromegaly Respiratory: increased respiratory effort, lungs clear to auscultation, no wheeze, rales, rhonchi. + accessory muscle use Cardiovascular: regular rate, rhythm, normal peripheral pulses, no BLE edema. Vessels: no JVD Chest: normal inspection of chest Abdomen/GI: normal bowel sounds, soft, nontender, no hepatosplenomegaly Extremities/Musculoskeletal: no cyanosis or clubbing, extremities motor strength 5/5 Neurologic: obtunded Skin: no rashes, normal color, warm/dry Results & Data Results & Data ([facility]) Vital Signs (Past 12 Hours) Vital Signs Pulse Pulse Resp BP BP Pulse Ox 08/03/21 04:36 140 H 144/75 H 100 08/03/21 04:29 143 H 129/96 100 08/03/21 04:14 144 H 145/62 H 08/03/21 03:59 144 H 158/96 H 100 08/03/21 03:44 145 H 143/76 H 100 08/03/21 03:29 146 H 137/89 100 08/03/21 03:14 146 H 139/72 08/03/21 02:59 148 H 131/90 100 08/03/21 02:45 148 H 135/83 100 08/03/21 02:31 151 H 33 H 100 08/03/21 02:25 146 H 100 08/03/21 02:17 148 H 100 08/03/21 01:29 151 H 131/62 08/03/21 01:15 138 H 100 08/03/21 00:25 125 H 35 H 102/30 L 100 08/03/21 00:15 134 H 34 H 99 08/03/21 00:11 126 H 35 H 85/30 L 100 08/03/21 00:07 127 H 35 H 106/50 L 100 08/02/21 23:54 133 H 33 H 100 08/02/21 23:34 47 L 34 H 98 08/02/21 22:46 121/94 Laboratory Results Short CBC 08/02/21 Range/Units 17:00 WBC 17.97 H (4.8-10.8) K/uL Hgb 9.1 L (12.0-16.0) g/dL Hct 27.6 L (37-47) % Plt Count 175 (130-400) K/uL BMP 08/02/21 08/02/21 17:00 18:02 Sodium 132 L Potassium 4.4 Chloride 101 Carbon Dioxide 24 BUN 14 Creatinine 0.88 Glucose 307 H* Calcium 8.3 L Cardiac Enzymes 08/02/21 08/02/21 08/02/21 Range/Units 17:00 18:02 23:38 Troponin I 0.409 H* 0.437 H* 0.881 H* (0-0.045) ng/ml Liver Function 08/02/21 08/02/21 Range/Units 17:00 18:02 Total Bilirubin 0.9 (0.2-1) mg/dl AST 54 H (15-37) U/L ALT 88 H (12-78) U/L Alkaline Phosphatase 148 H (45-117) U/L Albumin 2.6 L (3.4-5.0) gm/dl Diagnostic Findings Chest X-Ray 08/02/21 23:20 XR chest 1V portable CLINICAL HISTORY: dyspnea. code purple COMPARISON STUDY: August 02, 2021 at 11:17 hours FINDINGS: No definite pneumothorax is seen however evaluation is limited because right lung apex is obscured by patient's chin.. No pleural effusion. There is large right perihilar mass lesion is again seen. Previously seen opacities at the right lower lung are slightly improved since prior. Redemonstration of elevated left hemidiaphragm with atelectasis/infiltrate at the left base. Cardiomediastinal silhouette is within normal limits in size. No significant pulmonary vascular congestion.. Osseous structures: Degenerative changes of the spine. Gas-filled loops of bowel are seen within left upper quadrant on the elevated left hemidiaphragm. IMPRESSION: 1. Stable large right perihilar mass. Interval improvement of previously seen opacities within right lower lung. ACT 112: Negative or not required by law. The above report was generated using voice recognition software. It may contain grammatical, syntax or spelling errors. Electronically signed by: Flora Otto DO 08/03/2021 8:32 AM Chest X-Ray 08/03/21 00:54 XR chest 1V portable INDICATION: MN ^s/p intubation . TECHNIQUE: Single frontal radiograph of the chest was obtained. Comparison: Comparison is made to chest one view 08/02/2021 FINDINGS: Interval placement of endotracheal tube which is approximately 2 cm from the michael. The cardiomediastinal silhouette is normal. Interspace opacity in the right upper lobe is again noted. Again noted is elevation of the left hemidiaphragm. No evidence of pleural effusion or pneumothorax. IMPRESSION: 1. Endotracheal tube terminates 2 cm from the michael and can be withdrawn approximately 1 cm for improved positioning. 2. Stable right upper lobe opacity. ACT 112: Negative or not required by law. Electronically signed by: Edi Dubose M.D. 08/03/2021 8:31 AM
--- NOTE | 2021-08-03 10:08 | Billing Data ---
Date of Service August 03, 2021 Coding Level of Care Code 27293 Subseq Hosp Care Lvl 1
--- NOTE | 2021-08-03 11:00 | Palliative Care Consultation ---
Date of Consultation August 03, 2021 Assessment & Plan (1) Shortness of breath: She does not appear short of breath. Discussed changes in breathing pattern through dying process with family. Continue morphine at current rate of 5mg/hr (2) Palliative care encounter: She is DNR with focus of care on comfort. Talked with family at bedside about what to expect. They asked about prognosis which is likely hours to a few days. She will be moved to medical floor private room. Palliative care will follow. 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 She also has b/l pulmonary emboli with infarction. She has had ongoing hemoptysis which required discontinuation of anticoagulant. She was being seen by radiation oncology and was noted to have increased shortness of breath. She was admitted to the hospital and subsequently intubated overnight for acute hypoxic respiratory failure. After discussion with family, it was decided that she would not want to continue aggressive care given the extent of her illness. She had compassionate extubation and is now on morphine infusion for relief of dyspnea. She is not responsive but is resting comfortably with morphine infusion running at 5mg/hr. Her son and other family members are at bedside. They have noted accessory muscle use and are concerned that she is uncomfortable. Allergies Allergy/AdvReac Type Severity Reaction Status Date / Time bee venom protein (honey bee) Allergy Severe Anaphylaxis Unverified 08/02/21 17:54 acetaminophen AdvReac Unknown vomiting Verified 08/03/21 00:21 Home Medications Medication Instructions Recorded Confirmed Type epinephrine 0.3 mg/0.3 mL 0.3 mg IM Q4H PRN #0 12/01/15 08/02/21 History injection, auto-injector albuterol sulfate 90 mcg/actuation 2 inh INHALATION QID 07/23/21 08/02/21 History aerosol inhaler Lactobacillus acidoph-L.bulgaricus 1 tab PO BID #20 tab 07/31/21 08/02/21 Rx 1 million cell chewable tablet (Lactinex) apixaban 5 mg tablet (Eliquis) 10 mg PO UD 30 Days #60 tab 07/31/21 08/02/21 Rx benzonatate 100 mg capsule 100 mg PO TID PRN 10 Days #30 cap 07/31/21 08/02/21 Rx (Tescarlyn Medranowhitney) oxycodone 5 mg tablet 5 mg PO Q6H PRN 5 Days #15 tab 07/31/21 08/02/21 Rx prednisone 10 mg tablet 15 mg PO Q OTHER DAY 08/02/21 08/02/21 History Patient History Medical History 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 Brain metastases Lung mass Metastatic disease Tobacco abuse Quit smoking June 2021 Surgical History History of History of carpal tunnel surgery Family History Father Lung cancer Social History Smoking Status: Current every day smoker Tobacco Type: Cigarettes Cigarettes Per Day: 10; Hx Alcohol Use: Yes Alcohol type: beer Alcohol Intake Frequency: 2-4 x/Month Hx Substance Use: Yes Last Used Substance: Days (ago) Preferred Language: Zambian Communication Ability: Effective County Attorney Required: No Beliefs That Will Affect Care: None Current Living Situation: Family Feels Safe at Home: Yes Assistive Devices: Glasses Review of Systems Review of Systems: Unobtainable due to reduced consciousness Palliative Performance Score 10% Dyspnea 0/3 by observation Pain 0/3 by observation Physical Exam Constitutional: no acute distress Respiratory: + uses accessory muscles; no labored breathing Cardiovascular: Rate/Rhythm: regular rate and regular rhythm mottling noted on knees Gastrointestinal (Abdomen): soft, not distended Musculoskeletal: relaxed muscle tone, no rigidity Neurologic: + obtunded no myoclonus Results & Data ([facility]) Vital Signs (Past 12 Hours) Vital Signs Pulse Pulse Resp BP BP Pulse Ox 08/03/21 04:36 140 H 144/75 H 100 08/03/21 04:29 143 H 129/96 100 08/03/21 04:14 144 H 145/62 H 100 08/03/21 03:59 144 H 158/96 H 100 08/03/21 03:44 145 H 143/76 H 100 08/03/21 03:29 146 H 137/89 08/03/21 03:14 146 H 139/72 100 08/03/21 02:59 148 H 131/90 08/03/21 02:45 148 H 135/83 08/03/21 02:31 151 H 33 H 100 08/03/21 02:25 146 H 100 08/03/21 02:17 148 H 100 08/03/21 01:29 151 H 131/62 08/03/21 01:15 138 H 100 08/03/21 00:25 125 H 35 H 102/30 L 100 08/03/21 00:15 134 H 34 H 99 08/03/21 00:11 126 H 35 H 85/30 L 08/03/21 00:07 127 H 35 H 106/50 L 100 08/02/21 23:54 133 H 33 H 100 08/02/21 23:34 47 L 34 H 98 PG Care Time/CCT Total # of Minutes Spent Total Time Spent: 60 Total Time Spent with Patient: Total time spent is greater than 50% in coordination of care (as documented) at patient's floor/unit and/or counseling patient:symptom management, family education and support Coding Level of Care Code 42825 Initial Inpt Care Lvl 2 Diagnoses Shortness of breath R06.02 Palliative care encounter Z51.5 Bilateral pulmonary embolism I26.99 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 C34.90; C78.7 Pulmonary hemorrhage R04.89
--- NOTE | 2021-08-03 12:51 | Electrocardiogram Report ---
Test Reason : Blood Pressure : / mmHG Vent. Rate : 117 BPM Atrial Rate : 117 BPM P-R Int : 120 ms QRS Dur : 082 ms QT Int : 324 ms P-R-T Axes : 061 004 075 degrees QTc Int : 451 ms Poor data quality, interpretation may be adversely affected Sinus tachycardia with Premature atrial complexes Otherwise normal ECG When compared with ECG of 23-JUL-2021 08:56, Premature atrial complexes are now Present Confirmed by Martin Blair ([id number]) on 08/03/2021 12:51:20 PM Referred By: REFERRED SELF Confirmed By:Martin Blair
[2021-08-03 15:38] VITALS: BP 89/59; PULSE 97; O2SAT 86
--- NOTE | 2021-08-03 17:56 | Electrocardiogram Report ---
Test Reason : Blood Pressure : / mmHG Vent. Rate : 142 BPM Atrial Rate : 142 BPM P-R Int : 120 ms QRS Dur : 070 ms QT Int : 282 ms P-R-T Axes : 072 035 071 degrees QTc Int : 433 ms Poor data quality, interpretation may be adversely affected Sinus tachycardia Biatrial enlargement Abnormal ECG When compared with ECG of 02-AUG-2021 17:00, Premature atrial complexes are no longer Present Confirmed by Martin Blair ([id number]) on 08/03/2021 5:56:08 PM Referred By: REFERRED SELF Confirmed By:Martin Blair
[2021-08-04] MEDS: CHECK SCOPOLAMINE PATCH PLACEMENT SCH (02:10)
--- NOTE | 2021-08-04 08:49 | Discharge Summary ---
Date of Service August 04, 2021 Admission HPI Per Admitting Provider This is a 55-year-old female with recent diagnosis of lung cancer with metastatic disease to the liver and brain who presents the emergency department for evaluation of worsening SOB. Pt was recently admitted at [facility] last month for right right posterior shoulder pain and was found to have a mass in RUL lung mass with metastases to Liver and brain with brain edema. She was transferred to a tertiary care to [facility]. She had biopsy done that confirmed adenocarcinoma. She was admitted here from 07/23/21 until yesterday, when she was discharged for radiation therapy. Previously CTA chest showed bilateral pulmonary emboli. Interval progression of the mediastinal/right hilar large infiltrative mass with progressive moderate to severe narrowing of the superior vena cava. Progressive groundglass airspace opacities within the right lung. This could be due to a postobstructive pneumonitis or superimposed pulmonary infarcts. She was started on a heparin gtt during last admission and transitioned to eliquis on 08/01/21 upon discharge. Today she presented to radiation as an outpatient, however she felt her shortness of breath worsened, and upon discharge yesterday did not qualify for home O2. She is still coughing up hemoptysis nearly every time she coughs. Patient does not feel her breathing is any better today compared to when she left. She has taken 1 dose of Augmentin which she was sent home on for presumed pneumonitis. She denies any lightheadedness, dizziness, chest pain. Pt is agreeable to seeing palliative care during our visit. She requests a regular diet versus a diabetic one. At home she resides with her son, and daughter in law. Admission Exam Per Admitting Provider General: awake, alert, mild distress Head: Normocephalic, atraumatic ENT: PERRL, EOMI, no pharyngeal exudate, mucous membranes moist Chest: Diffuse coarse breath sounds, + crackles, + audible wheeze, on 1 L via NC, + hemoptysis Cardiac: Sinus tach, no murmur, no JVD, normal peripheral pulses, good capillary refill Abdominal: NABS x 4 quadrants, soft, nondistended, nontender to palpation, no rebound or guarding Extremities: Normal inspection, + peripheral trace edema bilaterally, no erythema, calfs nontender to palpation Psych: Normal mood and affect Neuro: AAO x 3, strength intact bilaterally and rated 5/5, no motor deficits, speech is clear, no peripheral sensory deficits Principal Diagnosis lung adenocarcinoma with metastasis Discharge Data Allergies Allergy/AdvReac Type Severity Reaction Status Date / Time bee venom protein (honey bee) Allergy Severe Anaphylaxis Unverified 08/02/21 17:54 acetaminophen AdvReac Unknown vomiting Verified 08/03/21 00:21 Consultations 08/02/21 18:08 Consult Palliative Care Routine 08/03/21 03:50 Consult Palliative Care Routine Hospital Course (1) 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 Presented to ED with SOB and ongoing hemoptysis. Patient required transfer to ICU for acute respiratory failure and was intubated. Overnight, had ongoing hemoptysis, hypotension and tachycardia. After extensive discussion between critical care provider and family, patient transitioned to comfort care. Was evaluated by palliative care and had discussion with family regarding prognosis and expectations. Patient was moved to medical floor and remained comfortable overnight. Patient early this morning at 0620 on 08/04/21. 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
== END 2021-08-04 10:11 | disposition expired | DRG 208 ==
LOC: 2N 16:03 → ED 16:03 → SUATTDRO 17:21 → 2N 22:35 → 2S 23:59 → 1E 08-03 00:57 → 3E 08-03 11:05
DX: J18.9 Pneumonia, unspecified organism; I26.99 Other pulmonary embolism without acute cor pulmonale; I87.1 Compression of vein; E11.65 Type 2 diabetes mellitus with hyperglycemia; C34.11 Malignant neoplasm of upper lobe, right bronchus or lung; C79.31 Secondary malignant neoplasm of brain; R04.89 Hemorrhage from other sites in respiratory passages; Z66 Do not resuscitate; J96.00 Acute respiratory failure, unspecified whether with hypoxia or hypercapnia; C78.7 Secondary malignant neoplasm of liver and intrahepatic bile duct; Z92.3 Personal history of irradiation; Z51.5 Encounter for palliative care; Z87.891 Personal history of nicotine dependence